=== PATIENT | male | born 1950 | race Two or more races ===

== ENCOUNTER 2023-06-08 20:45 | Inpatient (IN) | payer OTHER ==
[~2023-06-08] VITALS: Ht 167.6 cm; Wt 70.9 kg
[2023-06-08] MEDS ORDERED: SODIUM CHLORIDE 0.9% 1,000 ML IV ONE ×2 (21:00→22:30)
[2023-06-08] MEDS ORDERED: InsuLIN REG 1unit/0.01ml Soln (100units/ml) IV ONE ×2 (21:15→22:30)
[2023-06-08 21:30] LABS: Base Excess -4.2 mmol/L (-2.0-2.0)
[2023-06-08 21:48] LABS: Basophils # (auto) 0 10 ^3/uL (0-0.2); Basophils % (auto) 0.1 % (0.0-2.0); Eosinophils # (auto) 0 10 ^3/uL (0-0.8); Eosinophils % (auto) 0.2 % (0.0-7.0); Lymphocytes # (auto) 0.4 10 ^3/uL (0.4-5.4); Mean Corpuscular Hemoglobin 28.1 pg (28.0-32.0); Mean Corpuscular Hgb Conc. 28.2 g/dL (32.0-36.0); Monocytes # (auto) 0.7 10 ^3/uL (0-1.3); Monocytes % (auto) 6.4 % (0.0-12.0)
[2023-06-08 21:50] LABS: Hematocrit 32.7 % (41.0-53.0); Hemoglobin 9.2 g/dL (13.5-17.5); Mean Corpuscular Volume 99.5 fL (80.0-100.0); Neutrophils # (auto) 9.2 10 ^3/uL (1.6-8.6); Neutrophils % (auto) 89.3 % (37.0-80.0); Nucleated Red Blood Cells % 0.1 %; Red Blood Cells 3.29 10^6/uL (4.5-5.90); Red Cell Distribution Width 18.1 % (11.8-14.3); White Blood Cell 10.3 10^3/uL (4.4-10.8)
[2023-06-08 22:05] LABS: Alanine Aminotransferase 19 U/L (7-40); Albumin 3.8 g/dL (3.2-4.8); Alkaline Phosphatase 341 U/L (46-116); Anion Gap 11 (5-15); Aspartate Aminotransferase 32 U/L (13-40); BUN/Creatinine Ratio 18.7 (10.0-20.0); Bilirubin, Total 1.3 mg/dL (0.2-1.0); Blood Urea Nitrogen 50 mg/dL (9-23); Calcium 9.4 mg/dL (8.7-10.4); Carbon Dioxide 21 mmol/L (20-30); Chloride 83 mmol/L (98-107); Magnesium 2.7 mg/dL (1.6-2.6); Total Protein 7.8 g/dL (5.7-8.2)
[2023-06-08 22:21] LABS: Lactic Acid w/Reflex 4.8 mmol/L (0.4-2.0); Potassium 8.4 mmol/L (3.5-5.1); Sodium 115 mmol/L (136-145)
[2023-06-08 22:22] LABS: Glucose 1247 mg/dL (74-106)
[2023-06-08] MEDS ORDERED: SODIUM BICARBONATE 8.4% INJ 50ML SYRINGE IV ONE (22:30)
[2023-06-08] MEDS ORDERED: FUROSEMIDE 40 MG/4 ML VIAL IV ONE (22:30)
[2023-06-08] MEDS ORDERED: SODIUM ZIRCONIUM CYCL 10 GM PAK PO ONE (22:30)
[2023-06-08] MEDS ORDERED: PIPERACILLIN-TAZOB 3.375GM 100 ML IV ONE (22:30)
[2023-06-08] MEDS ORDERED: CALCIUM GLUC 1,000mg/50ml-NS 50 ML IV ONE (22:30)
[2023-06-08] MEDS ORDERED: ALBUTEROL SULF 2.5 MG/0.5ML(0.5%) NEB SOLN NEB ONE (22:30)
[2023-06-08] MEDS ORDERED: INSULIN LANTUS (GLARGINE) 1 /0.01ml (100units/ml) SC ONE (23:00)
[2023-06-08] MEDS ORDERED: DEXTROSE (50%) 50ML SYRG IV PRN (23:00)
[2023-06-08 23:37] LABS: Alanine Aminotransferase 15 U/L (7-40); Alkaline Phosphatase 311 U/L (46-116); Anion Gap 10 (5-15); Aspartate Aminotransferase 33 U/L (13-40); BUN/Creatinine Ratio 23.5 (10.0-20.0); Blood Urea Nitrogen 59 mg/dL (9-23); Calcium 9.5 mg/dL (8.5-10.1); Carbon Dioxide 22 mmol/L (20-30); Chloride 90 mmol/L (98-107)
[2023-06-08 23:38] LABS: Albumin 3.6 g/dL (3.2-4.8); Total Protein 7.3 g/dL (5.7-8.2)
[2023-06-08] MEDS: INSULIN DRIP 100 UNIT/100ML 100 ML IV SCH (23:43)
[2023-06-08 23:46] LABS: Sodium 122 mmol/L (136-145)
[2023-06-08 23:47] LABS: Glucose 1022 mg/dL (74-106)
[2023-06-09] MEDS: SODIUM CHLORIDE 0.9% 1,000 ML IV SCH ×4 (00:38→12:25)
[2023-06-09] MEDS: ACCU-CHEK COMFORT CURVE STRIP VI SCH ×16 (00:38→23:11)
[2023-06-09 00:45] LABS: Urine Bacteria NONE SEEN /hpf (None Seen); Urine Blood Negative /uL (Negative); Urine Clarity Clear (Clear); Urine Color Colorless (Yellow); Urine Protein, UAD Negative (Negative); Urine Specific Gravity 1.025 (1.001-1.035); Urine Urobilinogen Normal (Negative); Urine WBC 1 /hpf (0 - 3)
[2023-06-09 01:10] VITALS: PULSE 92; RESP 20; O2SAT 99
[2023-06-09 01:17] LABS: COVID19 ANTIGEN SOFIA FIA NEGATIVE (NEGATIVE)
[2023-06-09] MEDS ORDERED: SODIUM CHLORIDE 0.9% 1,000 ML IV SCH (03:00)
[2023-06-09 06:32] LABS: Chloride 99 mmol/L (98-107); Potassium 4.3 mmol/L (3.5-5.1)
[2023-06-09 06:33] LABS: Anion Gap 7 (5-15); Calcium 8.7 mg/dL (8.7-10.4); Carbon Dioxide 28 mmol/L (20-30)
[2023-06-09 06:39] LABS: Blood Urea Nitrogen 58 mg/dL (9-23)
[2023-06-09 06:40] LABS: Sodium 134 mmol/L (136-145)
[2023-06-09 06:41] LABS: Glucose 563 mg/dL (74-106)
[2023-06-09] MEDS: PIPERACILLIN-TAZOB 3.375GM 100 ML IV SCH ×3 (06:45→23:34)
[2023-06-09] MEDS ORDERED: InsuLIN REG 1unit/0.01ml Soln (100units/ml) SC SCH (07:00)
[2023-06-09 07:56] LABS: BUN/Creatinine Ratio 26.1 (10.0-20.0)
[2023-06-09 08:00] VITALS: PULSE 62; RESP 15; O2SAT 97
[2023-06-09] MEDS ORDERED: INSULIN LANTUS (GLARGINE) 1 /0.01ml (100units/ml) SC SCH (10:00)
[2023-06-09 11:52] LABS: Anion Gap 7 (5-15); Calcium 9.1 mg/dL (8.5-10.1); Carbon Dioxide 31 mmol/L (20-30); Chloride 102 mmol/L (98-107); Potassium 3.7 mmol/L (3.5-5.1); Sodium 140 mmol/L (136-145)
[2023-06-09 11:58] LABS: BUN/Creatinine Ratio 19.6 (10.0-20.0)
[2023-06-09 12:01] LABS: Blood Urea Nitrogen 42 mg/dL (9-23); Glucose 223 mg/dL (74-106)
[2023-06-09] MEDS: INSULIN DRIP 100 UNIT/100ML 100 ML IV SCH (14:06)
[2023-06-09 17:43] LABS: Chloride 103 mmol/L (98-107); Potassium 3.8 mmol/L (3.5-5.1); Sodium 141 mmol/L (136-145)
[2023-06-09 17:44] LABS: Anion Gap 7 (5-15); Carbon Dioxide 31 mmol/L (20-30)
[2023-06-09 17:49] LABS: BUN/Creatinine Ratio 20.7 (10.0-20.0); Blood Urea Nitrogen 43 mg/dL (9-23); Glucose 146 mg/dL (74-106)
[2023-06-09] MEDS ORDERED: D5W/SOD CHLO 0.9% 1,000 ML IV SCH (18:00)
[2023-06-09] MEDS ORDERED: INSULIN DRIP 100 UNIT/100ML 100 ML IV SCH (18:15)
[2023-06-09 19:55] VITALS: PULSE 70; RESP 19; O2SAT 96
[2023-06-09] MEDS ORDERED: INSULIN LANTUS (GLARGINE) 1 /0.01ml (100units/ml) SC ONE (21:00)
[2023-06-10] MEDS: ACCU-CHEK COMFORT CURVE STRIP VI SCH ×7 (00:18→16:28)
[2023-06-10] MEDS ORDERED: INSULIN DRIP 100 UNIT/100ML 100 ML IV SCH (02:00)
[2023-06-10] MEDS: D5W/SOD CHLO 0.9% 1,000 ML IV SCH ×3 (02:00→15:27)
[2023-06-10] MEDS: PIPERACILLIN-TAZOB 3.375GM 100 ML IV SCH ×3 (06:30→21:56)
[2023-06-10] MEDS ORDERED: InsuLIN REG 1unit/0.01ml Soln (100units/ml) SC SCH (07:00)
[2023-06-10] MEDS ORDERED: DEXTROSE (50%) 50ML SYRG IV PRN (10:45)
[2023-06-10 12:16] LABS: Basophils # (auto) 0 10 ^3/uL (0-0.2); Basophils % (auto) 0.2 % (0.0-2.0); Eosinophils # (auto) 0.1 10 ^3/uL (0-0.8); Lymphocytes # (auto) 0.5 10 ^3/uL (0.4-5.4); Monocytes # (auto) 0.4 10 ^3/uL (0-1.3); Nucleated Red Blood Cells % 0.1 %
[2023-06-10 12:18] LABS: Eosinophils % (auto) 1.7 % (0.0-7.0); Hematocrit 31.5 % (41.0-53.0); Hemoglobin 9.8 g/dL (13.5-17.5); Lymphocytes % (auto) 7.3 % (10.0-50.0); Mean Corpuscular Hemoglobin 28.3 pg (28.0-32.0); Mean Corpuscular Hgb Conc. 31.1 g/dL (32.0-36.0); Mean Corpuscular Volume 90.8 fL (80.0-100.0); Monocytes % (auto) 5.9 % (0.0-12.0); Neutrophils # (auto) 6.1 10 ^3/uL (1.6-8.6); Neutrophils % (auto) 84.9 % (37.0-80.0); Red Blood Cells 3.47 10^6/uL (4.5-5.90); Red Cell Distribution Width 18.3 % (11.8-14.3); White Blood Cell 7.2 10^3/uL (4.4-10.8)
[2023-06-10] MEDS ORDERED: OMEP20TA PO (12:20)
[2023-06-10] MEDS ORDERED: HYDR25TA5 GT (12:20)
[2023-06-10] MEDS ORDERED: LOSA25TA15 PO (12:20)
[2023-06-10] MEDS ORDERED: ASCO500T11 PO (12:20)
[2023-06-10] MEDS ORDERED: AMLO1TAB23 PO (12:20)
[2023-06-10] MEDS ORDERED: TENO1TAB PO (12:20)
[2023-06-10] MEDS ORDERED: INSU1INJ19 SC (12:20)
[2023-06-10] MEDS ORDERED: FERR325T20 PO (12:20)
[2023-06-10] MEDS ORDERED: LEVO25TA6 PO (12:20)
[2023-06-10] MEDS ORDERED: INSU100I28 IJ (12:20)
[2023-06-10] MEDS ORDERED: ATOR40TA52 PO (12:20)
[2023-06-10] MEDS ORDERED: SEMA2INJ3 SC (12:20)
[2023-06-10 12:33] LABS: Alanine Aminotransferase 23 U/L (7-40); Albumin 3.5 g/dL (3.2-4.8); Alkaline Phosphatase 303 U/L (46-116); Anion Gap 7 (5-15); Aspartate Aminotransferase 94 U/L (13-40); BUN/Creatinine Ratio 15.9 (10.0-20.0); Bilirubin, Total 0.5 mg/dL (0.2-1.0); Calcium 8.4 mg/dL (8.7-10.4); Carbon Dioxide 25 mmol/L (20-30); Chloride 108 mmol/L (98-107); Glucose 219 mg/dL (74-106); Magnesium 1.9 mg/dL (1.6-2.6); Sodium 140 mmol/L (136-145)
[2023-06-10 12:34] LABS: Total Protein 6.9 g/dL (5.7-8.2)
[2023-06-10] MEDS: InsuLIN REG 1unit/0.01ml Soln (100units/ml) SC SCH ×3 (12:46→20:00)
[2023-06-10 12:49] LABS: Blood Urea Nitrogen 28 mg/dL (9-23)
[2023-06-10] MEDS ORDERED: amLODIPine BESYLATE 5 MG TAB PO ONE (13:00)
[2023-06-10] MEDS: PANTOPRAZOLE 40 MG TAB PO SCH (13:00)
[2023-06-10] MEDS: hydroCHLOROthiazide 25 MG TAB PO SCH (13:00)
[2023-06-10] MEDS: SODIUM CHLORIDE 0.9% 1,000 ML IV SCH (16:28)
[2023-06-10 18:00] VITALS: PULSE 66; RESP 18; O2SAT 98
[2023-06-10] MEDS ORDERED: INSULIN LANTUS (GLARGINE) 1 /0.01ml (100units/ml) SC SCH (19:00)
[2023-06-10 20:00] VITALS: BP 131/54; PULSE 65; PULSE 72; RESP 18; TEMP 78.7; O2SAT 95
[2023-06-10] MEDS: ATORVASTATIN 20 MG TAB PO SCH (21:56)
[2023-06-10 23:46] VITALS: BP 131/54; PULSE 72; RESP 18; TEMP 98.2; O2SAT 95
[2023-06-11] VITALS (7 sets, daily range): BP systolic 130–142; BP diastolic 53–60; PULSE 62–80; RESP 16–20; TEMP 97.8–98.5; O2SAT 93–98
[2023-06-11] MEDS: InsuLIN REG 1unit/0.01ml Soln (100units/ml) SC SCH ×7 (00:21→21:46)
[2023-06-11] MEDS: ACCU-CHEK COMFORT CURVE STRIP VI SCH ×7 (00:50→21:45)
[2023-06-11] MEDS: PIPERACILLIN-TAZOB 3.375GM 100 ML IV SCH ×3 (00:56→22:28)
[2023-06-11] MEDS: SODIUM CHLORIDE 0.9% 1,000 ML IV SCH ×3 (02:00→22:00)
[2023-06-11] MEDS: LEVOTHYROXINE SODIUM 25 MCG TAB PO SCH (05:56)
[2023-06-11 06:08] LABS: Calcium 8.4 mg/dL (8.5-10.1); Chloride 107 mmol/L (98-107); Potassium 3.8 mmol/L (3.5-5.1); Sodium 137 mmol/L (136-145)
[2023-06-11 06:09] LABS: Anion Gap 7 (5-15); Carbon Dioxide 23 mmol/L (20-30)
[2023-06-11 06:10] LABS: Basophils # (auto) 0 10 ^3/uL (0-0.2); Basophils % (auto) 0.2 % (0.0-2.0); Eosinophils # (auto) 0.2 10 ^3/uL (0-0.8); Eosinophils % (auto) 2.2 % (0.0-7.0); Hematocrit 27.4 % (41.0-53.0); Hemoglobin 8.7 g/dL (13.5-17.5); Lymphocytes # (auto) 0.8 10 ^3/uL (0.4-5.4); Lymphocytes % (auto) 11.2 % (10.0-50.0); Mean Corpuscular Hemoglobin 28.2 pg (28.0-32.0); Mean Corpuscular Hgb Conc. 31.6 g/dL (32.0-36.0); Monocytes # (auto) 0.4 10 ^3/uL (0-1.3); Monocytes % (auto) 6.1 % (0.0-12.0); Neutrophils # (auto) 5.8 10 ^3/uL (1.6-8.6); Neutrophils % (auto) 80.3 % (37.0-80.0); Red Blood Cells 3.08 10^6/uL (4.5-5.90); Red Cell Distribution Width 18.8 % (11.8-14.3); White Blood Cell 7.2 10^3/uL (4.4-10.8)
[2023-06-11 06:14] LABS: BUN/Creatinine Ratio 12.8 (10.0-20.0); Blood Urea Nitrogen 20 mg/dL (9-23); Glucose 139 mg/dL (74-106)
[2023-06-11] MEDS ORDERED: DEXTROSE (50%) 50ML SYRG IV PRN (09:15)
[2023-06-11] MEDS: TENOFOVIR ALAFENAMIDE 25 MG PO SCH (10:00)
[2023-06-11] MEDS: ASCORBIC ACID 500 MG TAB PO SCH (10:06)
[2023-06-11] MEDS: hydroCHLOROthiazide 25 MG TAB PO SCH (10:06)
[2023-06-11] MEDS: FERROUS SULFATE 325mg EC TAB PO SCH (10:06)
[2023-06-11] MEDS: PANTOPRAZOLE 40 MG TAB PO SCH (10:06)
[2023-06-11 11:09] LABS: Hepatitis C Antibody Negative (Negative)
[2023-06-11 11:39] LABS: Hepatitis B Surface Antibody Negative (Negative)
[2023-06-11] MEDS ORDERED: ENOXAPARIN SOD 40 MG/0.4 ML SYRINGE SC ONE (15:00)
[2023-06-11] MEDS: ATORVASTATIN 20 MG TAB PO SCH (22:26)
[2023-06-12] MEDS: ACCU-CHEK COMFORT CURVE STRIP VI SCH ×4 (00:19→11:50)
[2023-06-12] MEDS: InsuLIN REG 1unit/0.01ml Soln (100units/ml) SC SCH ×4 (00:21→11:51)
[2023-06-12 04:33] LABS: Rapid Influenza A Negative (Negative); Rapid Influenza B Negative (Negative)
[2023-06-12 04:57] VITALS: BP 133/64; PULSE 65; RESP 15; TEMP 97.4; O2SAT 94
[2023-06-12] MEDS: PIPERACILLIN-TAZOB 3.375GM 100 ML IV SCH ×2 (05:33→14:00)
[2023-06-12] MEDS: LEVOTHYROXINE SODIUM 25 MCG TAB PO SCH (05:37)
[2023-06-12 06:00] LABS: Anion Gap 9 (5-15); Calcium 8.2 mg/dL (8.7-10.4); Carbon Dioxide 21 mmol/L (20-30); Chloride 104 mmol/L (98-107); Potassium 3.9 mmol/L (3.5-5.1); Sodium 134 mmol/L (136-145)
[2023-06-12 06:06] LABS: BUN/Creatinine Ratio 12.5 (10.0-20.0); Blood Urea Nitrogen 18 mg/dL (9-23); Glucose 125 mg/dL (74-106); Magnesium 1.8 mg/dL (1.6-2.6)
[2023-06-12 06:08] LABS: Phosphorus 2.5 mg/dL (2.4-5.1)
[2023-06-12 06:17] LABS: Basophils # (auto) 0 10 ^3/uL (0-0.2); Basophils % (auto) 0.4 % (0.0-2.0); Eosinophils # (auto) 0.1 10 ^3/uL (0-0.8); Eosinophils % (auto) 1.9 % (0.0-7.0); Hematocrit 28.2 % (41.0-53.0); Lymphocytes # (auto) 1.1 10 ^3/uL (0.4-5.4); Lymphocytes % (auto) 16.9 % (10.0-50.0); Mean Corpuscular Hemoglobin 28.6 pg (28.0-32.0); Mean Corpuscular Hgb Conc. 31.8 g/dL (32.0-36.0); Mean Corpuscular Volume 89.9 fL (80.0-100.0); Monocytes # (auto) 0.5 10 ^3/uL (0-1.3); Monocytes % (auto) 8.3 % (0.0-12.0); Neutrophils # (auto) 4.6 10 ^3/uL (1.6-8.6); Neutrophils % (auto) 72.5 % (37.0-80.0); Nucleated Red Blood Cells % 0.1 %; Red Blood Cells 3.13 10^6/uL (4.5-5.90); Red Cell Distribution Width 19.2 % (11.8-14.3); White Blood Cell 6.4 10^3/uL (4.4-10.8)
[2023-06-12 08:00] VITALS: PULSE 59; PULSE 88; RESP 18; O2SAT 96
[2023-06-12 09:00] VITALS: BP 126/56; PULSE 61; RESP 18; TEMP 98; O2SAT 96
[2023-06-12] MEDS: PANTOPRAZOLE 40 MG TAB PO SCH (09:42)
[2023-06-12] MEDS: TENOFOVIR ALAFENAMIDE 25 MG PO SCH (09:42)
[2023-06-12] MEDS: ASCORBIC ACID 500 MG TAB PO SCH (09:42)
[2023-06-12] MEDS: hydroCHLOROthiazide 25 MG TAB PO SCH (09:42)
[2023-06-12] MEDS: FERROUS SULFATE 325mg EC TAB PO SCH (09:42)
[2023-06-12] MEDS ORDERED: ENOXAPARIN SOD 40 MG/0.4 ML SYRINGE SC SCH (10:00)
[2023-06-12] MEDS ORDERED: AUG875T PO (11:17)
[2023-06-12 13:00] VITALS: BP 143/60; PULSE 63; RESP 17; TEMP 98.3; O2SAT 94
[2023-06-12 13:32] VITALS: BP 126/56
[2023-06-12] MEDS: SODIUM CHLORIDE 0.9% 1,000 ML IV SCH (14:00)
== END 2023-06-12 16:20 | disposition home or self-care (01) | DRG 177 ==
LOC: ER 20:45 → EDBD 20:45 → TELE 06-09 01:13 → TELE-WESTW 06-10 17:12
PROVIDERS: ADMIT Internal Medicine Geriatric Medicine; ATTEND Internal Medicine Geriatric Medicine
DX: J15.69 Pneumonia due to other Gram-negative bacteria (principal); E10.11 Type 1 diabetes mellitus with ketoacidosis with coma; N17.0 Acute kidney failure with tubular necrosis; E87.1 Hypo-osmolality and hyponatremia; J15.9 Unspecified bacterial pneumonia; E86.0 Dehydration; E87.5 Hyperkalemia; R16.0 Hepatomegaly, not elsewhere classified; Z20.822 Contact with and (suspected) exposure to COVID-19; K80.20 Calculus of gallbladder without cholecystitis without obstruction; E10.22 Type 1 diabetes mellitus with diabetic chronic kidney disease; N18.9 Chronic kidney disease, unspecified; I12.9 Hypertensive chronic kidney disease with stage 1 through stage 4 chronic kidney disease, or unspecified chronic kidney disease; Z86.73 Personal history of transient ischemic attack (TIA), and cerebral infarction without residual deficits; Z82.3 Family history of stroke
CPT/HCPCS: 36415; 36600; 71045; 74176; 74181; 76705; 80048; 80053; 81001; 82010; 82105; 82140; 82378; 82805; 82962; 83605; 83735; 84100; 84132; 84484; 85025; 86301; 86706; 86803; 87081; 87426; 87804; 93005; 97110; 97116; 97163; 97530; G0378; J1815; J2543

== ENCOUNTER 2024-02-25 19:18 | Inpatient (IN) | payer OTHER ==
[~2024-02-25] VITALS: Ht 167.6 cm; Wt 76.5 kg
[~2024-02-25 19:18] MED LIST: AMLO1TAB23 PO; ASCO500T11 PO; ATOR40TA52 PO; AUG875T PO; FERR325T20 PO; HYDR25TA5 GT; INSU100I28 IJ; INSU1INJ19 SC; LEVO25TA6 PO; LOSA-533 PO; OMEP20TA PO; SEMA2INJ3 SC; TENO1TAB PO
[2024-02-25 22:02] LABS: Basophils # (auto) 0 10 ^3/uL (0-0.2); Basophils % (auto) 0.4 % (0.0-2.0); Eosinophils # (auto) 0.2 10 ^3/uL (0-0.8); Lymphocytes # (auto) 1.5 10 ^3/uL (0.4-5.4); Monocytes # (auto) 0.6 10 ^3/uL (0-1.3); Platelet Count (auto) 180 10^3/uL (140-450); White Blood Cell 7.6 10^3/uL (4.4-10.8)
[2024-02-25 22:04] LABS: Hematocrit 15.2 % (41.0-53.0); Mean Corpuscular Hemoglobin 24.1 pg (28.0-32.0); Mean Corpuscular Hgb Conc. 29.8 g/dL (32.0-36.0); Mean Corpuscular Volume 80.9 fL (80.0-100.0); Monocytes % (auto) 7.6 % (0.0-12.0); Neutrophils # (auto) 5.2 10 ^3/uL (1.6-8.6); Red Blood Cells 1.88 10^6/uL (4.5-5.90)
[2024-02-25] MEDS: FUROSEMIDE 40 MG/4 ML VIAL IV ONE (22:05)
[2024-02-25 22:19] LABS: Alanine Aminotransferase 19 U/L (7-40); Albumin 4.7 g/dL (3.2-4.8); Alkaline Phosphatase 145 U/L (46-116); Anion Gap 11 (5-15); Aspartate Aminotransferase 149 U/L (13-40); BUN/Creatinine Ratio 15.6 (10.0-20.0); Blood Urea Nitrogen 44 mg/dL (9-23); Calcium 9.1 mg/dL (8.7-10.4); Carbon Dioxide 19 mmol/L (20-30); Chloride 111 mmol/L (98-107); Glucose 133 mg/dL (74-106); Potassium 4.2 mmol/L (3.5-5.1); Sodium 141 mmol/L (136-145)
[2024-02-25 22:20] LABS: Bilirubin, Total 0.6 mg/dL (0.2-1.0); Total Protein 7.9 g/dL (5.7-8.2)
[2024-02-25 22:26] LABS: Hemoglobin 4.5 g/dL (13.5-17.5)
[2024-02-25 22:33] LABS: Hypochromia Slight; Ovalocytes FEW; Platelet Estimate Adequate; Stomatocytes Few
[2024-02-25 23:00] VITALS: PULSE 64; RESP 18; O2SAT 96
[2024-02-26] VITALS (17 sets, daily range): BP systolic 125–151; BP diastolic 41–69; PULSE 62–85; RESP 11–18; TEMP 98–98.7; O2SAT 97–100
[2024-02-26] MEDS ORDERED: DEXTROSE (50%) 50ML SYRG IV PRN ×2 (01:00→03:00)
[2024-02-26] MEDS ORDERED: ONDANSETRON HCL 4 MG/2 ML VIAL IV PRN (01:00)
[2024-02-26 03:15] LABS: Amphetamine Screen, Urine Neg (NEGATIVE); Barbiturate Scree,Urine Neg (NEGATIVE); Benzodiazephine Screen, Urine Neg (NEGATIVE); Cannabinoid Screen, Urine Neg (NEGATIVE); Cocaine Screen, Urine Neg (NEGATIVE); Opiate Scree,Urine Neg (NEGATIVE); Phencyclidine Screen, Urine Neg (NEGATIVE)
[2024-02-26] MEDS: ACCU-CHEK COMFORT CURVE STRIP VI SCH ×2 (06:00→06:43)
[2024-02-26] MEDS: InsuLIN REG 1unit/0.01ml Soln (100units/ml) SC SCH ×2 (06:00→06:43)
[2024-02-26] MEDS: LEVOTHYROXINE SODIUM 25 MCG TAB PO SCH (06:25)
[2024-02-26] MEDS: ALBUTEROL SULF 2.5 MG/0.5ML(0.5%) NEB SOLN NEB PRN (06:57)
[2024-02-26] MEDS: IPRATROPIUM BROM 0.5 MG/2.5ML INH SOL NEB SCH (06:57)
[2024-02-26 09:14] LABS: Basophils # (auto) 0 10 ^3/uL (0-0.2); Basophils % (auto) 0.3 % (0.0-2.0); Eosinophils # (auto) 0.2 10 ^3/uL (0-0.8); Eosinophils % (auto) 3.4 % (0.0-7.0); Hematocrit 21.9 % (41.0-53.0); Hemoglobin 7.2 g/dL (13.5-17.5); Lymphocytes # (auto) 1.1 10 ^3/uL (0.4-5.4); Lymphocytes % (auto) 21.2 % (10.0-50.0); Mean Corpuscular Hemoglobin 27.2 pg (28.0-32.0); Mean Corpuscular Hgb Conc. 32.8 g/dL (32.0-36.0); Mean Corpuscular Volume 82.8 fL (80.0-100.0); Monocytes # (auto) 0.5 10 ^3/uL (0-1.3); Monocytes % (auto) 9.1 % (0.0-12.0); Neutrophils # (auto) 3.4 10 ^3/uL (1.6-8.6); Platelet Count (auto) 137 10^3/uL (140-450); Red Blood Cells 2.64 10^6/uL (4.5-5.90); Red Cell Distribution Width 18.1 % (11.8-14.3); White Blood Cell 5.1 10^3/uL (4.4-10.8)
[2024-02-26 09:27] LABS: INR 1.18 (0.9-1.15); Prothrombin Time 12.4 sec (9.3-11.8)
[2024-02-26 09:37] LABS: Thyroid Stimulating Hormone 2.35 uIU/mL (0.55-4.78)
[2024-02-26 09:45] LABS: Erythrocyte Sedimentation Rate 90 mm/hr (0-20)
[2024-02-26] MEDS ORDERED: FUROSEMIDE 20 MG TAB PO SCH (10:00)
[2024-02-26] MEDS: amLODIPine BESYLATE 5 MG TAB PO SCH (10:05)
[2024-02-26] MEDS: SODIUM CHLORIDE 0.9% 1,000 ML IV SCH (14:48)
[2024-02-26] MEDS: ATORVASTATIN 20 MG TAB PO SCH (23:12)
[2024-02-27] VITALS (21 sets, daily range): BP systolic 126–150; BP diastolic 36–61; PULSE 64–80; RESP 16–20; TEMP 97.6–98.3; O2SAT 96–100
[2024-02-27] MEDS: PANTOPRAZOLE 40 MG/10 ML VIAL INJ IV ONE (00:28)
[2024-02-27 07:49] LABS: Basophils # (auto) 0 10 ^3/uL (0-0.2); Basophils % (auto) 0.4 % (0.0-2.0); Eosinophils # (auto) 0.2 10 ^3/uL (0-0.8); Eosinophils % (auto) 3.8 % (0.0-7.0); Hematocrit 22.6 % (41.0-53.0); Hemoglobin 7.1 g/dL (13.5-17.5); Lymphocytes # (auto) 1.1 10 ^3/uL (0.4-5.4); Lymphocytes % (auto) 22.7 % (10.0-50.0); Mean Corpuscular Hgb Conc. 31.4 g/dL (32.0-36.0); Mean Corpuscular Volume 82.7 fL (80.0-100.0); Monocytes # (auto) 0.4 10 ^3/uL (0-1.3); Monocytes % (auto) 8.7 % (0.0-12.0); Neutrophils % (auto) 64.4 % (37.0-80.0); Nucleated Red Blood Cells % 0.1 %; Platelet Count (auto) 139 10^3/uL (140-450); Red Blood Cells 2.73 10^6/uL (4.5-5.90); Red Cell Distribution Width 17.9 % (11.8-14.3); White Blood Cell 4.7 10^3/uL (4.4-10.8)
[2024-02-27 08:23] LABS: Alanine Aminotransferase 18 U/L (7-40); Albumin 4.5 g/dL (3.2-4.8); Alkaline Phosphatase 124 U/L (46-116); Anion Gap 11 (5-15); Aspartate Aminotransferase 92 U/L (13-40); BUN/Creatinine Ratio 16.7 (10.0-20.0); Blood Urea Nitrogen 43 mg/dL (9-23); Calcium 9.3 mg/dL (8.7-10.4); Carbon Dioxide 22 mmol/L (20-30); Chloride 109 mmol/L (98-107); Glucose 155 mg/dL (74-106); Potassium 3.5 mmol/L (3.5-5.1); Sodium 142 mmol/L (136-145)
[2024-02-27 08:24] LABS: Bilirubin, Total 1.1 mg/dL (0.2-1.0); Total Protein 7.7 g/dL (5.7-8.2)
[2024-02-27] MEDS: PANTOPRAZOLE 40 MG/10 ML VIAL INJ IV SCH (10:10)
[2024-02-27] MEDS ORDERED: KETAMINE 50mg/ML 1ml syringe ONE (13:27)
[2024-02-27] MEDS ORDERED: MIDAZOLAM HCL 2MG/2ML 2ml VIAL (1mg/ml) ONE (13:28)
[2024-02-27] MEDS ORDERED: fentaNYL CITRATE 100 MCG/2 ML VL ONE (13:28)
[2024-02-27] MEDS: ONDANSETRON HCL 4 MG/2 ML VIAL IV ONE (14:00)
[2024-02-27] MEDS ORDERED: INSU1INJ19 SC (17:30)
[2024-02-27] MEDS ORDERED: HYDR25TA4 PO (17:30)
[2024-02-27] MEDS ORDERED: LEVO25TA6 PO (17:30)
[2024-02-27] MEDS ORDERED: TENO1TAB PO (17:30)
[2024-02-27] MEDS ORDERED: INSU100I26 SC (17:30)
[2024-02-27] MEDS ORDERED: FURO20TA3 PO (17:30)
[2024-02-27] MEDS ORDERED: OMEP1CAP70 PO (17:36)
[2024-02-27 19:27] LABS: Urine Bacteria None Seen /hpf (None Seen)
[2024-02-27 19:55] LABS: Urine Blood TRACE /uL (Negative); Urine Clarity Clear (Clear); Urine Color Colorless (Yellow); Urine Protein, UAD 1+ (Negative); Urine Specific Gravity 1.011 (1.001-1.035); Urine Urobilinogen Normal (Negative); Urine WBC 1 /hpf (0 - 3); Urine pH 5.5 (5.0-9.0)
[2024-02-28] VITALS (20 sets, daily range): BP systolic 131–155; BP diastolic 49–96; PULSE 62–74; RESP 16–20; TEMP 97.9–98.9; O2SAT 95–100
[2024-02-28 00:47] LABS: Basophils # (auto) 0 10 ^3/uL (0-0.2); Basophils % (auto) 0.5 % (0.0-2.0); Eosinophils # (auto) 0.2 10 ^3/uL (0-0.8); Hemoglobin 7.1 g/dL (13.5-17.5); Mean Corpuscular Volume 84.4 fL (80.0-100.0); Monocytes # (auto) 0.4 10 ^3/uL (0-1.3)
[2024-02-28 00:49] LABS: Eosinophils % (auto) 4.2 % (0.0-7.0); Hematocrit 23.2 % (41.0-53.0); Lymphocytes % (auto) 21.6 % (10.0-50.0); Mean Corpuscular Hemoglobin 25.9 pg (28.0-32.0); Mean Corpuscular Hgb Conc. 30.6 g/dL (32.0-36.0); Monocytes % (auto) 9.3 % (0.0-12.0); Neutrophils # (auto) 2.9 10 ^3/uL (1.6-8.6); Neutrophils % (auto) 64.4 % (37.0-80.0); Nucleated Red Blood Cells % 0.1 %; Platelet Count (auto) 133 10^3/uL (140-450); Red Blood Cells 2.76 10^6/uL (4.5-5.90); Red Cell Distribution Width 17.9 % (11.8-14.3); White Blood Cell 4.6 10^3/uL (4.4-10.8)
[2024-02-28 09:21] LABS: Hepatitis C Antibody Negative (Negative)
[2024-02-28 09:31] LABS: Hepatitis B Surface Antigen Positive (Negative)
[2024-02-28 09:36] LABS: Basophils # (auto) 0 10 ^3/uL (0-0.2); Eosinophils # (auto) 0.2 10 ^3/uL (0-0.8); Hematocrit 25.2 % (41.0-53.0); Hemoglobin 8.1 g/dL (13.5-17.5); Lymphocytes # (auto) 1.1 10 ^3/uL (0.4-5.4); Neutrophils # (auto) 3.2 10 ^3/uL (1.6-8.6)
[2024-02-28 09:38] LABS: Basophils % (auto) 0.4 % (0.0-2.0); Eosinophils % (auto) 4.3 % (0.0-7.0); Lymphocytes % (auto) 21.6 % (10.0-50.0); Mean Corpuscular Hemoglobin 27.1 pg (28.0-32.0); Mean Corpuscular Hgb Conc. 32.1 g/dL (32.0-36.0); Mean Corpuscular Volume 84.2 fL (80.0-100.0); Monocytes # (auto) 0.4 10 ^3/uL (0-1.3); Monocytes % (auto) 8.4 % (0.0-12.0); Neutrophils % (auto) 65.3 % (37.0-80.0); Nucleated Red Blood Cells % 0.3 %; Platelet Count (auto) 130 10^3/uL (140-450); Red Cell Distribution Width 18.9 % (11.8-14.3); White Blood Cell 4.9 10^3/uL (4.4-10.8)
[2024-02-28 09:44] LABS: Chloride 109 mmol/L (98-107); Potassium 4.1 mmol/L (3.5-5.1); Sodium 139 mmol/L (136-145)
[2024-02-28 09:45] LABS: Calcium 9.2 mg/dL (8.7-10.4)
[2024-02-28 09:50] LABS: Glucose 142 mg/dL (74-106)
[2024-02-28 10:06] LABS: Blood Urea Nitrogen 31 mg/dL (9-23)
[2024-02-28 10:15] LABS: Anion Gap 10 (5-15); Carbon Dioxide 20 mmol/L (20-31)
[2024-02-28 10:25] LABS: Ferritin 18.3 ng/mL (22-322)
[2024-02-28 10:41] LABS: Folate (Folic Acid) 29.75 ng/mL (>5.38)
[2024-02-28] MEDS: PANTOPRAZOLE 40 MG TAB PO ONE (10:41)
[2024-02-28] MEDS: FERROUS SULFATE 325mg EC TAB PO SCH (10:41)
[2024-02-28] MEDS ORDERED: PANT40T PO (11:13)
[2024-02-29] MEDS ORDERED: PANTOPRAZOLE 40 MG TAB PO SCH (06:00)
[2024-02-29] MEDS ORDERED: IRON SUCROSE COMPLEX 100 ML IV SCH (12:00)
== END 2024-02-28 17:50 | disposition home or self-care (01) | DRG 377 ==
LOC: EDBD 19:18 → ER 19:18 → OVERFLOW 02-26 01:05 → WEST WING 02-26 21:11 → TELE-WESTW 02-26 23:44 → WEST WING 02-27 12:10
PROVIDERS: ADMIT Internal Medicine; ATTEND Internal Medicine
PROC: 30233N1 Transfusion of Nonautologous Red Blood Cells into Peripheral Vein, Percutaneous Approach (ICD-10-PCS; principal; 2024-02-26)
PROC: 0DB98ZX Excision of Duodenum, Via Natural or Artificial Opening Endoscopic, Diagnostic (ICD-10-PCS; 2024-02-27)
PROC: 0DB98ZZ Excision of Duodenum, Via Natural or Artificial Opening Endoscopic (ICD-10-PCS; 2024-02-27)
PROC: 0DB78ZX Excision of Stomach, Pylorus, Via Natural or Artificial Opening Endoscopic, Diagnostic (ICD-10-PCS; 2024-02-27)
DX: K29.91 Gastroduodenitis, unspecified, with bleeding (principal); I50.33 Acute on chronic diastolic (congestive) heart failure; N17.0 Acute kidney failure with tubular necrosis; E87.20 Acidosis, unspecified; I13.0 Hypertensive heart and chronic kidney disease with heart failure and stage 1 through stage 4 chronic kidney disease, or unspecified chronic kidney disease; R18.8 Other ascites; K80.20 Calculus of gallbladder without cholecystitis without obstruction; E03.9 Hypothyroidism, unspecified; E78.00 Pure hypercholesterolemia, unspecified; N18.9 Chronic kidney disease, unspecified; E11.22 Type 2 diabetes mellitus with diabetic chronic kidney disease; D63.8 Anemia in other chronic diseases classified elsewhere; J44.9 Chronic obstructive pulmonary disease, unspecified; K75.9 Inflammatory liver disease, unspecified; K31.7 Polyp of stomach and duodenum; Z86.73 Personal history of transient ischemic attack (TIA), and cerebral infarction without residual deficits; Z87.11 Personal history of peptic ulcer disease; Z87.891 Personal history of nicotine dependence; Z79.4 Long term (current) use of insulin; Z79.899 Other long term (current) drug therapy
CPT/HCPCS: 36415; 71045; 71250; 74176; 76700; 80048; 80053; 80307; 81001; 82105; 82270; 82607; 82728; 82746; 82962; 83540; 83550; 83615; 83880; 83970; 84443; 84484; 84550; 85025; 85045; 85610; 85652; 86038; 86803; 86850; 86900; 86901; 86920; 87340; 93005; 93306; 94640; 99291; G0378; J1815; J2250; J2470

== ENCOUNTER 2024-05-16 08:44 | Inpatient (IN) | payer OTHER ==
[~2024-05-16] VITALS: Ht 162.6 cm; Wt 81.0 kg
[2024-05-16] VITALS (11 sets, daily range): BP systolic 133–159; BP diastolic 31–51; PULSE 53–64; RESP 14–18; TEMP 97.4–98.1; O2SAT 98–100
[~2024-05-16 08:44] MED LIST changes: -AMLO1TAB23 PO; -ASCO500T11 PO; -AUG875T PO; -FERR325T20 PO; -HYDR25TA5 GT; +INSU100I26 SC; -INSU100I28 IJ; +OMEP1CAP70 PO; -OMEP20TA PO; +PANT40T PO
[2024-05-16] MEDS: SODIUM CHLORIDE 0.9% 1,000 ML IV ONE (09:30)
--- NOTE | 2024-05-16 09:48 | ED.PDOC ---
GI ASSESSMENT HPI Comments 73 y.o pale appearing male presents to the ED via EMS for an evaluation of rectal bleed. Patient reports using the restroom earlier today and noticed a large amount of bright red blood in the toilet. Patient mentions having a previous episode, unsure what date but states it was minimal. Per EMS, patient complained of nausea and vomiting in route, was given 4mg of Zofran IV with improvement. Heart rate dropped from 60 to 30 en route with EMS s/p patient first vomited, arrives with a rate of 46. Patient denies any abdominal pain, fever, chills, chest pain, SOB, lightheadedness. No active bleeding per patient at this time. Patient does have a medical history of anemia, previous blood transfusions, CVA, HDL, liver disease, thyroid, CVA, CHF, HTN, DM, and hepatitis. Patient is Zimbabwean speaking only. Information gathered in this visit was through [employer] services. 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, Medications, Allergies Allergies: Coded Allergies: NO KNOWN ALLERGIES (Unverified , 06/08/23) Home Meds Active Scripts Pantoprazole Sodium Sesquihydr (Pantoprazole Sodium) 40 Mg Tab, 40 MG PO DAILY@0600 for 30 Days, #30 TAB 3 Refills Prov:BARTOLODORA Riojas DO 02/28/24 Reported Medications Omeprazole (Omeprazole Dr) 20 Mg Cap, 20 MG PO DAILY 02/27/24 Insulin Lispro (Admelog) 100 Unit/Ml Inj, 10 UNITS SC UD 02/27/24 Insulin Glargine (Basaglar Kwikpen) 100 Unit/Ml Inj, 30 UNITS SC BEFORE DINNER 02/27/24 Levothyroxine Sodium (Levothyroxine Sodium) 25 Mcg Tab, 25 MCG PO QAM ON EMPTY STOMACH 02/27/24 Tenofovir Alafenamide Fumarate (Vemlidy) 25 Mg Tab, 25 MG PO DAILY 02/27/24 Atorvastatin Calcium (ATORVASTATIN CALCIUM) 40 Mg Tab, 1 TAB PO DAILY, #30 TAB 5 Refills 06/10/23 Losartan Potassium (Losartan Potassium) 25 Mg Tab, 1 TAB PO DAILY, #90 TAB 1 Ref ill 06/10/23 Semaglutide (Ozempic) 2 Mg/3 Ml Inj, 2 MG SC, INJ 06/10/23 Information Source: Patient Mode of Arrival: EMS Timing: Hours Duration: Since onset Quality: None Vomitus: Hard Stool: Other (bloody ) Severity: Moderate Recent: None Recent Hx of: None Pain Location: None Modifying Factors: Nothing Associated sign and symptoms: Blood in Stool Past Medical History PAST MEDICAL HISTORY: CHF, CVA, DM, Gallstones, HTN, Liver, Thyroid Surgical History: Denies all surgeries Family History Family History: Unknown Social History Smoker: Non-Smoker Alcohol: Denies ETOH Use Drugs: Denies Drug Use Lives In: Home Constitutional: denies: chills, diaphoresis, fatigue, fever, malaise, sweats, weakness, others EENTM: denies: blurred vision, double vision, ear bleeding, ear discharge, ear drainage, ear pain, ear ringing, eye pain, eye redness, hearing loss, mouth pain, mouth swelling, nasal discharge, nose bleeding, nose congestion, nose pain, photophobia, tearing, throat pain, throat swelling, voice changes, others Respiratory: denies: cough, hemoptysis, orthopnea, SOB at rest, shortness of breath, SOB with excertion, stridor, wheezing, others Cardiovascular: denies: chest pain, dizzy spells, diaphoresis, Dyspnea on exe rtion, edema, irregular heart beat, left arm pain, lightheadedness, palpitations, PND, syncope, others Gastrointestinal: reports: nausea, rectal bleeding, vomiting; denies: abdomen distended, abdominal pain, blood streaked bowels, constipated, diarrhea, dysphagia, difficulty swallowing, hematemesis, melena, poor appetite, poor fluid intake, rectal pain, others Genitourinary: denies: burning, dysuria, flank pain, frequency, hematuria, incontinence, penile discharge, penile sore, pain, testicle pain, testicle swelling, urgency, others Neurological: denies: dizziness, fainting, headache, left sided numbness, left sided weakness, numbness, paresthesia, pre-existing deficit, right sided numbness, right sided weakness, seizure, speech problems, tingling, tremors, weakness, others Musculoskeletal: denies: back pain, gout, joint pain, joint swelling, muscle pain, muscle stiffness, neck pain, others Integumetry: denies: bruises, change in color, change in hair/nails, dryness, laceration, lesions, lumps, rash, wounds, others Allergic/Immunocompromised: denies: Difficulty Healing, Frequent Infections, Hives, Itching, others Hematologic/Lymphatic: denies: anemia, blood clots, easy bleeding, easy bruising, swollen glands, others Endocrine: denies: excessive hunger, excessive sweating, excessive thirst, excessive urination, flushing, intolerance to cold, intolerance to heat, unexplained weight gain, unexplained weight loss, others Psychiatric: denies: anxiety, bipolar disorder, depression, hopeless, panic disorder, schizophrenia, sleepless, suicidal, others All Other Systems: Reviewed and Negative Physical Exam General Appearance: No Apparent Distress HEENT: Pale Conjuntivae (L), Pale Conjuntivae (R), PERRL/EOMI Neck: Full Range of Motion, Normal Inspection Respiratory: Lungs Clear, No Accessory Muscle Use, No Respiratory Distress, Normal Breath Sounds Cardiovascular: No Edema, No JVD, Regular Rate/Rhythm Breast Exam: Deferred Gastrointestinal: Non Tender, Soft Genitalia: Deferred Pelvic: Deferred Rectal: Other (No acute hemorrhage. Dried blood in the perianal area and on diaper. No perianal lesions noted.) Extremities: Normal range of motion, Non-tender, No pedal edema Neurologic: Alert (Oriented x4), Normal Affect, Normal Mood, Other (Hearing deficit. Moves all extremities. No other gross focal deficit.) Cerebellar Function: NOT DONE Reflexes: NOT DONE Skin: Dry, Pallor, Warm, Other (Scattered ecchymoses on extremities) Lymphatic: NOT DONE Was a procedure done? Was a procedure done?: No GI differential Dx Differential Diagnosis: Diverticular disease, GI hemorrhage, Inflammatory BD, Ischemic Bowel, Hypovolemia, Anemia, Esophageal Varicies, Stress Ulcer Other Differential Diagnosis Coagulopathy, among others X-Ray, Labs, Meds, VS Vital Signs Date Time Temp Pulse Resp B/P (MAP) Pulse Ox O2 Delivery O2 Flow Rate FiO2 05/16/24 10:41 53 18 100 Room Air* 0 21 05/16/24 10:39 56 18 135/39 (71) 100 05/16/24 09:07 98.0 112 18 127/72 (90) 98 98.0 05/16/24 08:51 97.6 46 18 114/40 (64) 100 Lab Test 05/16/24 09:38 Range/Units White Blood Count 8.1 4.4-10.8 10^3/uL Red Blood Count 1.35 L 4.5-5.90 10^6/uL Hemoglobin 4.3 *L 13.5-17.5 g/dL Hematocrit 14.3 L 41.0-53.0 % Mean Corpuscular Volume 106.0 H 80.0-100.0 fL Mean Corpuscular Hemoglobin 31.6 28.0-32.0 pg Mean Corpuscular Hemoglobin Concent 29.8 L 32.0-36.0 g/dL Red Cell Distribution Width 24.6 H 11.8-14.3 % Platelet Count 118 L 140-450 10^3/uL Mean Platelet Volume 9.2 6.9-10.8 fL Neutrophils (%) (Auto) 82.7 H 37.0-80.0 % Lymphocytes (%) (Auto) 10.7 10.0-50.0 % Monocytes (%) (Auto) 4.6 0.0-12.0 % Eosinophils (%) (Auto) 1.7 0.0-7.0 % Basophils (%) (Auto) 0.3 0.0-2.0 % Neutrophils # (Auto) 6.7 1.6-8.6 10 ^3/uL Lymphocytes # (Auto) 0.9 0.4-5.4 10 ^3/uL Monocytes # (Auto) 0.4 0-1.3 10 ^3/uL Eosinophils # (Auto) 0.1 0-0.8 10 ^3/uL Basophils # (Auto) 0 0-0.2 10 ^3/uL Nucleated Red Blood Cells 0.0 % Platelet Estimate Pending Prothrombin Time 11.5 9.3-11.8 sec Prothrombin Time INR 1.09 0.9-1.15 Activated Partial Thromboplast Time 25.9 24.5-34.5 SEC Sodium Level 144 136-145 mmol/L Potassium Level 5.1 3.5-5.1 mmol/L Chloride Level 119 H 98-107 mmol/L Carbon Dioxide Level 14 L 20-31 mmol/L Anion Gap 11 5-15 Blood Urea Nitrogen 63 H 9-23 mg/dL Creatinine 3.12 H 0.700-1.30 mg/dL Glomerular Filtration Rate Calc 20 >90 mL/min BUN/Creatinine Ratio 20.2 H 10.0-20.0 Serum Glucose 250 H 74-106 mg/dL Calcium Level 8.9 8.7-10.4 mg/dL Total Bilirubin Pending Aspartate Amino Transferase (AST) 80 H 13-40 U/L Alanine Aminotransferase (ALT) 20 7-40 U/L Alkaline Phosphatase 103 46-116 U/L Troponin I High Sensitivity < 3 L </=54 ng/L B-Type Natriuretic Peptide 125.53 0-100 pg/mL Total Protein 6.3 5.7-8.2 g/dL Albumin 3.8 3.2-4.8 g/dL Current Medications Medications (Trade) Dose Ordered Sig/Harlan Route Start Time Stop Time Status Last Admin Sodium Chloride 1,000 ml @ 1,000 mls/hr Q1H ONCE IV 05/16/24 09:30 05/16/24 10:29 DC 05/16/24 09:30 Ondansetron HCl (Zofran) 4 mg ONCE ONCE IV 05/16/24 10:00 05/16/24 10:01 DC 05/16/24 10:00 Pantoprazole Sodium (Protonix) 40 mg ONCE ONCE IV 05/16/24 10:00 05/16/24 10:01 DC 05/16/24 10:00 PROCEDURE(s): ABPL - CT AB PEL WO CON-NO ORAL OR IV REASON: GI bleeding lower ORDER NUMBER(s): [id number], ACCESSION NUMBER(s): [id number] CT ABDOMEN AND PELVIS WITHOUT CONTRAST CLINICAL HISTORY: GI bleeding lower TECHNIQUE: Multiple contiguous axial images of the abdomen and pelvis without intravenous contrast. The images were reformatted degenerate coronal and sagittal reconstructions. All CT scans at this medical facility are performed using dose modulation techniques as appropriate to a performed exam including the following:Automated exposure control was utilized; adjustment of the MA and/or KV according to patient size; and use of iterative reconstruction technique. Radiation Dose Information: CT Dose: CTDI volume is 8.44 mGy. Dose-length product is 440.13 mGy*cm Comparison: CT CT AB PEL WO CON-NO ORAL OR IV on DOS: 02/26/24, CT CT AB PEL WO CON-NO ORAL OR IV on DOS: 06/08/23 FINDINGS: Evaluation of the abdomen and pelvis is limited without intravenous contrast. There is fairly stable appearing 10.5 cm mildly hypodense mass centered in the left hepatic lobe. There are small calcified gallstones in the gallbladder. The pancreas, kidneys, adrenal glands, and spleen appear within normal limits. There is no gross evidence of abdominal lymphadenopathy. There is no free fluid or free air. The stomach grossly appears unremarkable. The small and large bowel loops dem onstrate normal caliber and appear within normal limits.. The abdominal aorta and IVC appear within normal limits. The prostate gland is enlarged. An incompletely filled bladder demonstrates circumferential wall thickening likely related to chronic outlet obstruction.. There is no gross evidence of a pelvic mass. There is no free fluid collection. Lung bases are clear. There is no acute osseous abnormality. IMPRESSION: 1. There is no acute process in the abdomen and pelvis. 2. Fairly stable appearing 10.5 cm mass centered in the left hepatic lobe. 3. Cholelithiasis. 4. Prostatomegaly with likely chronic bladder outlet obstruction. HS:Y X-Ray, Labs, Meds, VS Comment 73-year-old male with a history of anemia, previous blood transfusions, CVA, HDL, liver disease, thyroid, CVA, CHF, HTN, DM, and hepatitis presenting with GI bleeding. Vitals remarkable for heart rate 46, BP 114/40 Exam remarkable for pallor and a large amount of dark red blood in the diaper. No acute hemorrhage or perianal lesions noted. Rhythm strip independently interpreted by me: Sinus bradycardia, rate 58, no ectopy. CT abdomen and pelvis: IMPRESSION: 1. There is no acute process in the abdomen and pelvis. 2. Fairly stable appearing 10.5 cm mass centered in the left hepatic lobe. 3. Cholelithiasis. 4. Prostatomegaly with likely chronic bladder outlet obstruction. CBC remarkable for hemoglobin 4.3, hematocrit 14.3, platelets 118, CMP remarkable for chloride 119, CO2 14, BUN 63, creatinine 3.12, BNP and troponin unremarkable Patient treated with the following in the ED: 1 L 0.9 normal saline IV bolus, Protonix 40 mg IV, Zofran 4 mg IV. Patient was typed and crossed for 2 units of packed red cells and transfusion was ordered. On re-evaluation, blood pressure and heart rate are stable, there is no new acute bleeding, and patient appears comfortable. Plan is to admit the patient for transfusion and GI evaluation. Time of 1ST Reevaluation: 10:29 Reevaluation 1ST: Unchanged Patient Education/Counseling: Diagnosis, Treatment, Prognosis, Other ([employer] services used for assessment ) Family Education/Counseling: No Family Present Departure 1 Departure Time of Disposition: 11:00 Impression: Primary Impression: Severe anemia Additional Impression: GI bleed Qualified Codes: K92.2 - Gastrointestinal hemorrhage, unspecified Disposition: ADMITTED INPATIENT Admit to: Tele Condition: Guarded Critical Care Note Critical Care Time?: Yes (35 min-critical care time only) Critical care comment: Critical care time including multiple bedside re-evaluations, review of lab and imaging studies, and discussion of the case with the admitting provider. Patient is high risk for hemodynamic decompensation. Stability Stability form required: No I personally scribed for ANTHONY JIM MD ([facility]) on 05/16/24 at 09:48. Electronically submitted by Poppy Kat ([facility]). I personally scribed for ANTHONY JIM MD ([facility]) on 05/16/24 at 10:37. Electronically submitted by Poppy Kat ([facility]). I personally scribed for ANTHONY JIM MD ([facility]) on 05/16/24 at 10:53. Electronically submitted by Poppy Kat ([facility]). ANTHONY JIM MD May 16, 2024 09:48
[2024-05-16] MEDS: ONDANSETRON HCL 4 MG/2 ML VIAL IV ONE (10:00)
[2024-05-16] MEDS: PANTOPRAZOLE 40 MG/10 ML VIAL INJ IV ONE (10:00)
[2024-05-16 10:18] LABS: Basophils # (auto) 0 10 ^3/uL (0-0.2); Eosinophils # (auto) 0.1 10 ^3/uL (0-0.8); Lymphocytes # (auto) 0.9 10 ^3/uL (0.4-5.4); Neutrophils # (auto) 6.7 10 ^3/uL (1.6-8.6)
[2024-05-16 10:21] LABS: Basophils % (auto) 0.3 % (0.0-2.0); Eosinophils % (auto) 1.7 % (0.0-7.0); Hematocrit 14.3 % (41.0-53.0); Lymphocytes % (auto) 10.7 % (10.0-50.0); Mean Corpuscular Hemoglobin 31.6 pg (28.0-32.0); Mean Corpuscular Hgb Conc. 29.8 g/dL (32.0-36.0); Monocytes # (auto) 0.4 10 ^3/uL (0-1.3); Monocytes % (auto) 4.6 % (0.0-12.0); Neutrophils % (auto) 82.7 % (37.0-80.0); Platelet Count (auto) 118 10^3/uL (140-450); Red Blood Cells 1.35 10^6/uL (4.5-5.90); White Blood Cell 8.1 10^3/uL (4.4-10.8)
[2024-05-16 10:24] LABS: Alanine Aminotransferase 20 U/L (7-40); Albumin 3.8 g/dL (3.2-4.8); Alkaline Phosphatase 103 U/L (46-116); Anion Gap 11 (5-15); BUN/Creatinine Ratio 20.2 (10.0-20.0); Calcium 8.9 mg/dL (8.7-10.4); Potassium 5.1 mmol/L (3.5-5.1); Sodium 144 mmol/L (136-145); Total Protein 6.3 g/dL (5.7-8.2)
[2024-05-16 10:36] LABS: Red Cell Distribution Width 24.6 % (11.8-14.3)
[2024-05-16 10:38] LABS: Hemoglobin 4.3 g/dL (13.5-17.5)
--- NOTE | 2024-05-16 10:38 | DVH ---
CT ABDOMEN AND PELVIS WITHOUT CONTRAST CLINICAL HISTORY: GI bleeding lower TECHNIQUE: Multiple contiguous axial images of the abdomen and pelvis without intravenous contrast. The images were reformatted degenerate coronal and sagittal reconstructions. All CT scans at this medical facility are performed using dose modulation techniques as appropriate t o a performed exam including the following:Automated exposure control was utilized; adjustment of the MA and/or KV according to patient size; and use of iterative reconstruction technique. Radiation Dose Information: CT Dose: CTDI volume is 8.44 mGy. Dose-length product is 440.13 mGy*cm Comparison: CT CT AB PEL WO CON-NO ORAL OR IV on DOS: 02/26/24, CT CT AB PEL WO CON-NO ORAL OR IV on D OS: 06/08/23 FINDINGS: Evaluation of the abdomen and pelvis is limited without intravenous contrast. There is fairly stable appearing 10.5 cm mildly hypodense mass centered in the left hepatic lobe. There are small calcified gallstones in the gallbladder. The pancreas, kidneys, adrenal glands, a nd spleen appear within normal limits. There is no gross evidence of abdominal lymphadenopathy. There is no free fluid or free air. The stomach grossly appears unremarkable. The small and large bowel loops demonstrate normal caliber and appear within normal limits.. The abdominal aorta and IVC appear within normal limits. The prostate gland is enlarged. An incompletely filled bladder demonstrates circumferential wall thic kening likely related to chronic outlet obstruction.. There is no gross evidence of a pelvic mass. T here is no free fluid collection. Lung bases are clear. There is no acute osseous abnormality. IMPRESSION: 1. There is no acute process in the abdomen and pelvis. 2. Fairly stable appearing 10.5 cm mass centered in the left hepatic lobe. 3. Cholelithiasis. 4. Prostatomegaly with likely chronic bladder outlet obstruction. HS:Y
[2024-05-16 10:39] LABS: INR 1.09 (0.9-1.15); Partial Thromboplastin Time 25.9 SEC (24.5-34.5); Prothrombin Time 11.5 sec (9.3-11.8)
[2024-05-16 10:43] LABS: Aspartate Aminotransferase 80 U/L (13-40); Blood Urea Nitrogen 63 mg/dL (9-23); Carbon Dioxide 14 mmol/L (20-31); Chloride 119 mmol/L (98-107); Glucose 250 mg/dL (74-106)
[2024-05-16 11:24] LABS: Bilirubin, Total 0.5 mg/dL (0.2-1.0)
[2024-05-16 11:29] LABS: Anisocytosis Moderate; Hypochromia Moderate; Macrocytosis Moderate; Platelet Estimate Decreased; Polychromasia Slight
[2024-05-16] MEDS: OCTREOTIDE ACETATE 500 MCG in SODIUM CHL 0.9% 99 ML IV SCH ×2 (13:00→23:53)
[2024-05-16] MEDS ORDERED: ONDANSETRON HCL 4 MG/2 ML VIAL IV PRN (13:00)
[2024-05-16] MEDS: SODIUM CHLORIDE 0.9% 1,000 ML IV SCH (13:00)
[2024-05-16] MEDS ORDERED: MORPHINE SULFATE INJ 2 MG/ml SYRG IV PRN (13:00)
[2024-05-16] MEDS ORDERED: DEXTROSE (50%) 50ML SYRG IV PRN (13:00)
--- NOTE | 2024-05-16 13:17 | DVHHP2 ---
History of Present Illness Reason for Visit: rectal bleeding History of Present Illness Dillan Geiger is a 73 old male with past medical history of hypertension, hyperlipidemia, diabetes, CHF, anemia, blood transfusions, CVA, liver disease, hepatitis, thyroid disease, and cholelithiasis who presents to the ED today for rectal bleeding, nausea, and vomiting x1 day. She reports that he was having a bowel movement and he had bright red blood with the stool. Patient reports that 3 months ago he had a blood transfusion at [facility] as well for low blood count. Patient states that he sees his primary once every 3 months. He states that he is compliant with all his medications. Per EMS notes that patient's heart rate was 60 on the field the drop to 30. Patient denies chest pain, shortness of breath, fever, chills, lightheadedness, and dizziness. Cardiovascular: CHF, HTN, hyperipidemia STEAM HAND: CVA Heme/Onc: Anemia NOS Hepatobiliary: Cholelithiasis, Hep A/B/C, Other (liver disease) Endocrine: Diabetes, Hypothyroidism Past Medical History blood transfusion 3 months ago Past Surgical History: None Family History: None Smoke: No ALCOHOL: none Drugs: None Lives: with Family Domestic Violence: Neg Review of Systems Constitutional: No: Fever, Chills, Sweats, Weakness, Malaise, Other Eyes: No: Pain, Vision change, Conjunctivae inflammation, Eyelid inflammation, Other, Redness ENT: No: Ear pain, Ear discharge, Nose pain, Nose discharge, Nose congestion, Mouth pain, Mouth swelling, Throat pain, Throat swelling, Other Respiratory: No: Cough, Dry, Shortness of breath, SOB with excertion, Wheezing, Hemoptysis, Pleuritic Pain, Sputum, Wheezing, Other Cardiovascular: No: Chest Pain, Palpitations, Orthopnea, Paroxysmal Noc. Dyspnea, Edema, Lt Headedness, Other Gastrointestinal: Nausea, Vomiting, Hematochezia; No: Abdominal Pain, Diarrhea, Constipation, Melena, Other Genitourinary: No Dysuria, No Frequency, No Incontinence, No Hematuria, No Retention, No Other Musculoskeletal: No: other, neck pain, shoulder pain, arm pain, back pain, hand pain, leg pain, foot pain Skin: No: Rash, Lesions, Jaundice, Bruising, Other Neurological: No: Weakness, Numbness, Incoordination, Change in speech, Confusion, Seizures, Other Allergies: Coded Allergies: NO KNOWN ALLERGIES (Unverified , 06/08/23) Exam Vital Signs Vital Signs Date Time Temp Pulse Resp B/P (MAP) Pulse Ox O2 Delivery O2 Flow Rate FiO2 05/16/24 12:33 98.0 63 18 139/31 98.0 05/16/24 10:41 100 Room Air* 0 21 General Appearance: Alert, Oriented X3, Cooperative, No acute distress HEENT: Atraumatic, PERRLA, EOMI, Mucous membr. moist/pink Respiratory: Clear to auscultation, Normal air movement Cardiovascular: Regular rate, Normal S1, Normal S2, No murmurs Abdominal: Normal bowel sounds, Soft, No tenderness, No hepatospenomegaly, No masses Extremities: No clubbing, No cyanosis, No edema, Normal pulses, No tenderness/swelling Skin: No rashes, No breakdown, No significant lesion Neuro: Normal gait, Normal speech, Strength at 5/5 X4 ext, Normal tone, Sensation intact Psych/Mental Status: Mental status NL, Mood NL Labs/Xrays Labs Test 05/16/24 11:15 05/16/24 09:38 Range/Units Troponin I High Sensitivity 3 L </=54 ng/L White Blood Count 8.1 4.4-10.8 10^3/uL Red Blood Count 1.35 L 4.5-5.90 10^6/uL Hemoglobin 4.3 *L 13.5-17.5 g/dL Hematocrit 14.3 L 41.0-53.0 % Mean Corpuscular Volume 106.0 H 80.0-100.0 fL Mean Corpuscular Hemoglobin 31.6 28.0-32.0 pg Mean Corpuscular Hemoglobin Concent 29.8 L 32.0-36.0 g/dL Red Cell Distribution Width 24.6 H 11.8-14.3 % Platelet Count 118 L 140-450 10^3/uL Mean Platelet Volume 9.2 6.9-10.8 fL Neutrophils (%) (Auto) 82.7 H 37.0-80.0 % Lymphocytes (%) (Auto) 10.7 10.0-50.0 % Monocytes (%) (Auto) 4.6 0.0-12.0 % Eosinophils (%) (Auto) 1.7 0.0-7.0 % Basophils (%) (Auto) 0.3 0.0-2.0 % Neutrophils # (Auto) 6.7 1.6-8.6 10 ^3/uL Lymphocytes # (Auto) 0.9 0.4-5.4 10 ^3/uL Monocytes # (Auto) 0.4 0-1.3 10 ^3/uL Eosinophils # (Auto) 0.1 0-0.8 10 ^3/uL Basophils # (Auto) 0 0-0.2 10 ^3/uL Nucleated Red Blood Cells 0.0 % Platelet Estimate Decreased Polychromasia Slight Hypochromasia (manual) Moderate Anisocytosis (manual) Moderate Macrocytosis Moderate Prothrombin Time 11.5 9.3-11.8 sec Prothrombin Time INR 1.09 0.9-1.15 Activated Partial Thromboplast Time 25.9 24.5-34.5 SEC Sodium Level 144 136-145 mmol/L Potassium Level 5.1 3.5-5.1 mmol/L Chloride Level 119 H 98-107 mmol/L Carbon Dioxide Level 14 L 20-31 mmol/L Anion Gap 11 5-15 Blood Urea Nitrogen 63 H 9-23 mg/dL Creatinine 3.12 H 0.700-1.30 mg/dL Glomerular Filtration Rate Calc 20 >90 mL/min BUN/Creatinine Ratio 20.2 H 10.0-20.0 Serum Glucose 250 H 74-106 mg/dL Calcium Level 8.9 8.7-10.4 mg/dL Total Bilirubin 0.5 0.2-1.0 mg/dL Aspartate Amino Transferase (AST) 80 H 13-40 U/L Alanine Aminotransferase (ALT) 20 7-40 U/L Alkaline Phosphatase 103 46-116 U/L B-Type Natriuretic Peptide 125.53 0-100 pg/mL Total Protein 6.3 5.7-8.2 g/dL Albumin 3.8 3.2-4.8 g/dL CT ABDOMEN AND PELVIS WITHOUT CONTRAST CLINICAL HISTORY: GI bleeding lower TECHNIQUE: Multiple contiguous axial images of the abdomen and pelvis without intravenous contrast. The images were reformatted degenerate coronal and sagittal reconstructions. All CT scans at this medical facility are performed using dose modulation techniques as appropriate to a performed exam including the following:Automated exposure control was utilized; adjustment of the MA and/or KV according to patient size; and use of iterative reconstruction technique. Radiation Dose Information: CT Dose: CTDI volume is 8.44 mGy. Dose-length product is 440.13 mGy*cm Comparison: CT CT AB PEL WO CON-NO ORAL OR IV on DOS: 02/26/24, CT CT AB PEL WO CON-NO ORAL OR IV on DOS: 06/08/23 FINDINGS: Evaluation of the abdomen and pelvis is limited without intravenous contrast. There is fairly stable appearing 10.5 cm mildly hypodense mass centered in the left hepatic lobe. There are small calcified gallstones in the gallbladder. The pancreas, kidneys, adrenal glands, and spleen appear within normal limits. There is no gross evidence of abdominal lymphadenopathy. There is no free fluid or free air. The stomach grossly appears unremarkable. The small and large bowel loops demonstrate normal caliber and appear within normal limits.. The abdominal aorta and IVC appear within normal limits. The prostate gland is enlarged. An incompletely filled bladder demonstrates circumferential wall thickening likely related to chronic outlet obstruction.. There is no gross evidence of a pelvic mass. There is no free fluid collection. Lung bases are clear. There is no acute osseous abnormality. IMPRESSION: 1. There is no acute process in the abdomen and pelvis. 2. Fairly stable appearing 10.5 cm mass centered in the left hepatic lobe. 3. Cholelithiasis. 4. Prostatomegaly with likely chronic bladder outlet obstruction. Assessment/Plan Assessment/Plan Assessment/Plan: Suspected lower GIB Severe anemia transfuse prbcs GI cx labs ekg trop antiemetics am labs ua octreotide drip ct a/p noted trop noted JOHN on CKD4 IVf am labs DM HgbA1C ISS and accuchecks Thyroid disease continue home med levothyroxine Stable left hepatic lobe mass f/u outpatient with pcp Cholelithiasis f/u outpatient pcp Hepatitis home meds continued - tenofovir monitor labs Prostatomegaly with likely chronic bladder outlet obstruction patient voiding f/u outpatient with pcp FEN/PPX IVf NPO hold dvt ppx, patient bleeding PUD ppx Discussed plan of care with patient and nurse Home medications reconciled Admit to med surg Plan discussed with: Patient Date of Service: May 16, 2024 Billing Provider: MAICOL CARDOZO Common Visit Codes: [id number] INP/OBS CARE (MOD) MAICOL CARDOZO May 16, 2024 13:17
--- NOTE | 2024-05-16 15:42 | DVHINCON2 ---
GI Consult Consult Note GI consult note Date of Consultation: 05/16/2024 Chief Complaint: GI bleed Referring Physician:Sarah TAYLOR H&P: 73-year-old male admitted with rectal bleeding for one day Patient has red blood rectally Patient has nausea and vomiting Patient has history of anemia and has blood transfusions at [facility] in the past Past history of liver disease and hepatitis Past Medical History: Cardiovascular: CHF, HTN, hyperipidemia WOUND CARE RN: CVA Heme/Onc: Anemia NOS Hepatobiliary: Cholelithiasis, hepatitis Endocrine: DM Past Surgical History: None Social History: NO smoking, drinking ETOH and use of illegal drugs. Family History: Noncontributory Review of Systems: Constitutional: no fever, chill, weight loss HEENT: no eye pain, no hearing loss, no oral lesion, no scleral icterus Heart: no chest pain, no chest pressure Lung: no cough, no dyspnea with exertion Abdomen: see HPI Physical exam: General: NAD, AAOX3 Chest: lung buenrostro clear to auscultation Heart: RRR, no murmur Abdomen: non-distended, no tenderness to palpation, +BS Labs: Labs Test 05/16/24 13:21 05/16/24 09:38 Range/Units Troponin I High Sensitivity < 3 L </=54 ng/L White Blood Count 8.1 4.4-10.8 10^3/uL Red Blood Count 1.35 L 4.5-5.90 10^6/uL Hemoglobin 4.3 *L 13.5-17.5 g/dL Hematocrit 14.3 L 41.0-53.0 % Mean Corpuscular Volume 106.0 H 80.0-100.0 fL Mean Corpuscular Hemoglobin 31.6 28.0-32.0 pg Mean Corpuscular Hemoglobin Concent 29.8 L 32.0-36.0 g/dL Red Cell Distribution Width 24.6 H 11.8-14.3 % Platelet Count 118 L 140-450 10^3/uL Mean Platelet Volume 9.2 6.9-10.8 fL Neutrophils (%) (Auto) 82.7 H 37.0-80.0 % Lymphocytes (%) (Auto) 10.7 10.0-50.0 % Monocytes (%) (Auto) 4.6 0.0-12.0 % Eosinophils (%) (Auto) 1.7 0.0-7.0 % Basophils (%) (Auto) 0.3 0.0-2.0 % Neutrophils # (Auto) 6.7 1.6-8.6 10 ^3/uL Lymphocytes # (Auto) 0.9 0.4-5.4 10 ^3/uL Monocytes # (Auto) 0.4 0-1.3 10 ^3/uL Eosinophils # (Auto) 0.1 0-0.8 10 ^3/uL Basophils # (Auto) 0 0-0.2 10 ^3/uL Nucleated Red Blood Cells 0.0 % Platelet Estimate Decreased Polychromasia Slight Hypochromasia (manual) Moderate Anisocytosis (manual) Moderate Macrocytosis Moderate Prothrombin Time 11.5 9.3-11.8 sec Prothrombin Time INR 1.09 0.9-1.15 Activated Partial Thromboplast Time 25.9 24.5-34.5 SEC Sodium Level 144 136-145 mmol/L Potassium Level 5.1 3.5-5.1 mmol/L Chloride Level 119 H 98-107 mmol/L Carbon Dioxide Level 14 L 20-31 mmol/L Anion Gap 11 5-15 Blood Urea Nitrogen 63 H 9-23 mg/dL Creatinine 3.12 H 0.700-1.30 mg/dL Glomerular Filtration Rate Calc 20 >90 mL/min BUN/Creatinine Ratio 20.2 H 10.0-20.0 Serum Glucose 250 H 74-106 mg/dL Hemoglobin A1c < 4.0 <5.7 % A1C Calcium Level 8.9 8.7-10.4 mg/dL Total Bilirubin 0.5 0.2-1.0 mg/dL Aspartate Amino Transferase (AST) 80 H 13-40 U/L Alanine Aminotransferase (ALT) 20 7-40 U/L Alkaline Phosphatase 103 46-116 U/L B-Type Natriuretic Peptide 125.53 0-100 pg/mL Total Protein 6.3 5.7-8.2 g/dL Albumin 3.8 3.2-4.8 g/dL Imaging: CT abdomen pelvis IMPRESSION: 1. There is no acute process in the abdomen and pelvis. 2. Fairly stable appearing 10.5 cm mass centered in the left hepatic lobe. 3. Cholelithiasis. 4. Prostatomegaly with likely chronic bladder outlet obstruction. Assessment: GI bleed Severe anemia Cholelithiasis History of hepatitis Plan: Discussed with Dr. Martin Transfuse if hemoglobin less than seven Monitor labs Hold blood thinners We will continue to monitor the patient Thank you for the consult Date of Service: May 16, 2024 Billing Provider: LISA WINN Common Visit Codes: CONSULT ONLY Consultation Codes: [id number] CONSULT <45MIN LISA WINN May 16, 2024 15:42
[2024-05-16] MEDS: ACCU-CHEK COMFORT CURVE STRIP VI SCH (18:00)
[2024-05-16] MEDS: InsuLIN REG 1unit/0.01ml Soln (100units/ml) SC SCH (18:00)
[2024-05-16 19:19] LABS: Basophils # (auto) 0 10 ^3/uL (0-0.2); Basophils % (auto) 0.3 % (0.0-2.0); Eosinophils # (auto) 0.1 10 ^3/uL (0-0.8); Eosinophils % (auto) 0.9 % (0.0-7.0); Hematocrit 26.2 % (41.0-53.0); Hemoglobin 7.8 g/dL (13.5-17.5); Lymphocytes # (auto) 1.1 10 ^3/uL (0.4-5.4); Lymphocytes % (auto) 15.5 % (10.0-50.0); Mean Corpuscular Hemoglobin 30.3 pg (28.0-32.0); Mean Corpuscular Volume 101.2 fL (80.0-100.0); Monocytes # (auto) 0.4 10 ^3/uL (0-1.3); Monocytes % (auto) 5.6 % (0.0-12.0); Neutrophils # (auto) 5.3 10 ^3/uL (1.6-8.6); Neutrophils % (auto) 77.7 % (37.0-80.0); Platelet Count (auto) 97 10^3/uL (140-450); Red Blood Cells 2.59 10^6/uL (4.5-5.90); Red Cell Distribution Width 20.9 % (11.8-14.3); White Blood Cell 6.8 10^3/uL (4.4-10.8)
[2024-05-16 20:43] LABS: Urine Bacteria FEW /hpf (None Seen); Urine Blood Negative /uL (Negative); Urine Clarity Clear (Clear); Urine Color Light-Yellow (Yellow); Urine Hyaline Cast FEW /lpf (0 - 2); Urine Mucus FEW (None Seen); Urine Protein, UAD 1+ (Negative); Urine Specific Gravity 1.015 (1.001-1.035); Urine Sperm PRESENT /hpf (None Seen); Urine Urobilinogen Normal (Negative); Urine WBC 2 /hpf (0 - 3)
[2024-05-16] MEDS: OCTREOTIDE ACETATE 500 MCG/ML VL ONE (23:54)
[2024-05-16] MEDS: ATORVASTATIN 20 MG TAB PO SCH (23:58)
[2024-05-17] VITALS (9 sets, daily range): BP systolic 111–173; BP diastolic 30–57; PULSE 55–100; RESP 16–18; TEMP 98.1–98.6; O2SAT 62–100
[2024-05-17] MEDS: LEVOTHYROXINE SODIUM 25 MCG TAB PO SCH (05:57)
[2024-05-17 09:42] LABS: Basophils # (auto) 0 10 ^3/uL (0-0.2); Monocytes # (auto) 0.3 10 ^3/uL (0-1.3); Nucleated Red Blood Cells % 0.1 %
[2024-05-17 09:44] LABS: Basophils % (auto) 0.5 % (0.0-2.0); Eosinophils # (auto) 0.1 10 ^3/uL (0-0.8); Eosinophils % (auto) 3.2 % (0.0-7.0); Hematocrit 22.5 % (41.0-53.0); Lymphocytes % (auto) 21.3 % (10.0-50.0); Mean Corpuscular Hgb Conc. 30.9 g/dL (32.0-36.0); Monocytes % (auto) 6.1 % (0.0-12.0); Neutrophils # (auto) 3.1 10 ^3/uL (1.6-8.6); Neutrophils % (auto) 68.9 % (37.0-80.0); Platelet Count (auto) 102 10^3/uL (140-450); Red Blood Cells 2.32 10^6/uL (4.5-5.90); Red Cell Distribution Width 21.3 % (11.8-14.3); White Blood Cell 4.5 10^3/uL (4.4-10.8)
[2024-05-17] MEDS: TENOFOVIR ALAFENAMIDE FUMARATE 25 MG PO SCH (10:00)
[2024-05-17 10:01] LABS: Alanine Aminotransferase 26 U/L (7-40); Albumin 3.7 g/dL (3.2-4.8); Alkaline Phosphatase 78 U/L (46-116); Anion Gap 9 (5-15); BUN/Creatinine Ratio 18.9 (10.0-20.0); Calcium 8.8 mg/dL (8.7-10.4); Total Protein 6.2 g/dL (5.7-8.2)
[2024-05-17 10:03] LABS: Aspartate Aminotransferase 174 U/L (13-40); Bilirubin, Total 1.4 mg/dL (0.2-1.0); Blood Urea Nitrogen 58 mg/dL (9-23); Carbon Dioxide 15 mmol/L (20-31); Chloride 122 mmol/L (98-107); Glucose 126 mg/dL (74-106); Sodium 146 mmol/L (136-145)
[2024-05-17 10:07] LABS: Potassium 5.7 mmol/L (3.5-5.1)
[2024-05-17] MEDS: SODIUM ZIRCONIUM CYCL 10 GM PAK PO ONE (11:41)
[2024-05-17] MEDS: LOSARTAN POTASSIUM 25 MG TAB PO SCH (11:41)
--- NOTE | 2024-05-17 14:18 | DVHPN2 ---
Subjective The patient is seen and examined at bedside. Still complaint of abdominal pain. No hematemesis. Tolerated clear liquid diet. Reviewed: Care Plan, H&P, Labs, Medications, Previous Orders, Radiology Changes from previous H/P or p: No Changes Eyes: No Pain, No Vision change, No Conjunctivae inflammation, No Eyelid inflammation, No Other, No Redness ENT: No Ear pain, No Ear discharge, No Nose pain, No Nose discharge, No Nose congestion, No Mouth pain, No Mouth swelling, No Throat pain, No Throat swelling, No Other Cardiovascular: No Chest Pain, No Palpitations, No Orthopnea, No Paroxysmal Noc. Dyspnea, No Edema, No Lt Headedness, No Other Respiratory: No Cough, No Dry, No Shortness of breath, No SOB with excertion, No Wheezing, No Hemoptysis, No Pleuritic Pain, No Sputum, No Other Gastrointestinal: Nausea, Vomiting; No Abdominal Pain, No Diarrhea, No Constipation, No Melena; Hematochezia; No Other Genitourinary: No Dysuria, No Frequency, No Incontinence, No Hematuria, No Retention, No Other Musculoskeletal: No other, No neck pain, No shoulder pain, No arm pain, No back pain, No hand pain, No leg pain, No foot pain Skin: No Rash, No Lesions, No Jaundice, No Bruising, No Other Objective Vitals Vital Signs Date Time Temp Pulse Resp B/P (MAP) Pulse Ox O2 Delivery O2 Flow Rate FiO2 05/17/24 13:00 98.1 55 16 163/54 (90) 100 98.1 05/16/24 22:46 Room Air* 0 21 Intake/Output Intake and Output 05/17/24 07:00 Intake Total 2340 ml Output Total 300 ml Balance 2040 ml Intake Oral 0 ml IV Total 1140 ml Tube Feeding 0 ml Blood Product 1200 ml Other 0 ml Output Urine Total 200 ml Stool Total 100 ml General Appearance: Alert, Oriented X3, Cooperative, No acute distress HEENT: Atraumatic, PERRLA, EOMI, Mucous membr. moist/pink Neck: Supple Lungs: Clear to auscultation, Normal air movement Cardiovascular: Regular rate, Normal S1, Normal S2, No murmurs, Gallops, Rubs Abdomen: Normal bowel sounds, Soft, No tenderness, No hepatospenomegaly Neuro: Cranial nerves 3-12 NL Psych/Mental Status: Mental status NL Medications Current Medications Medications Dose Ordered Sig/Harlan Route Start Time Stop Time Status Last Admin Dose Admin Sodium Chloride 1,000 ml @ 100 mls/hr Q10H IV 05/16/24 13:00 05/16/24 23:00 100 MLS/HR Ondansetron HCl 4 mg Q4HP PRN IV 05/16/24 13:00 Morphine Sulfate 2 mg Q4HPRN PRN IV 05/16/24 13:00 Diagnostic Test (Pha) 1 strip Q6HR 05/16/24 18:00 05/17/24 12:00 1 STRIP Insulin Human Regular Q6HR SC 05/16/24 18:00 Dextrose 50 ml UD PRN IV 05/16/24 13:00 Levothyroxine Sodium 25 mcg QAM@0600 PO 05/17/24 06:00 05/17/24 05:57 25 MCG Losartan Potassium 25 mg DAILY PO 05/17/24 10:00 05/17/24 11:41 25 MG Atorvastatin Calcium 40 mg HS PO 05/16/24 22:00 05/16/24 23:58 40 MG Patient Own Medication 25 mg DAILY PO 05/17/24 10:00 Octreotide Acetate 500 mcg/ Sodium Chloride 100 ml @ 10 mls/hr Q10H IV 05/16/24 23:15 05/17/24 09:15 10 MLS/HR Laboratory Results Laboratory Tests 05/17/24 09:25 Chemistry Test 05/17/24 09:25 Albumin 3.7 g/dL (3.2-4.8) Calcium Level 8.8 mg/dL (8.7-10.4) Total Protein 6.2 g/dL (5.7-8.2) LFT Test 05/17/24 09:25 Alanine Aminotransferase (ALT) 26 U/L (7-40) Alkaline Phosphatase 78 U/L (46-116) Aspartate Amino Transferase (AST) 174 U/L (13-40) H Total Bilirubin 1.4 mg/dL (0.2-1.0) H Urinalysis Test 05/16/24 18:32 Urine Color Light-yellow (Yellow) Urine Clarity Clear (Clear) Urine pH 5.0 (5.0-9.0) Urine Specific [place] 1.015 (1.001-1.035) Urine Protein 1+ (Negative) H Urine Ketones Negative (Negative) Urine Blood Negative /uL (Negative) Urine Nitrite Negative (Negative) Urine Bilirubin Negative (Negative) Urine Urobilinogen Normal mg/dL (Negative) Urine Leukocyte Esterase Negative /uL (Negative) Urine RBC <1 /hpf (0 - 3) Urine WBC 2 /hpf (0 - 3) Urine Squamous Epithelial Cells Few /hpf (<5) Urine Bacteria Few /hpf (None Seen) H Urine Hyaline Casts Few /lpf (0 - 2) Urine Mucus Few (None Seen) Urine Sperm Present /hpf (None Seen) Urine Glucose Normal mg/dL (Normal) Labs and/or images reviewed: Labs reviewed by me Assessment/Plan Assessment/Plan Acute GI bleed Anemia of acute blood loss Diabetes type 2 uncontrolled Hypothyroidism Cholelithiasis History of hepatitis B, currently on tenofovir Prostatectomy with likely chronic bladder outlet obstruction Plan: Continuing current management. Today his hemoglobin is 7.1. We will type and cross and transfuse one packed red blood cell. We will continuing to monitor his hemoglobin. Continuing sliding scale insulin. Continuing with clear liquid diet. Continuing with Synthroid. Continuing with tenofovir. Waiting for GI specialist to see the patient. This medical document was created using an electronic medical record system with [employer] direct computerized dictation system. Although this document has been carefully reviewed, there may still be some phonetic and typographical errors. These areas are purely typographical due to imperfections of the software programs, and do not reflect any compromise in the patient's medical care. Plan discussed with: Patient My Orders Orders - KALIE HEDRICK MD Procedure Category Date Status Time Obtain Consent For: ORDERS 05/17/24 Transmitted 10:25 Obtain Consent For MARIN 05/17/24 In Process Anesthesia 10:25 Date of Service: May 17, 2024 Billing Provider: KALIE HEDRICK MD Common Visit Codes: [id number] INP/OBS CARE(HIGH) KALIE HEDRICK MD May 17, 2024 14:18
[2024-05-17 21:05] LABS: Basophils # (auto) 0 10 ^3/uL (0-0.2); Basophils % (auto) 0.4 % (0.0-2.0); Eosinophils # (auto) 0.1 10 ^3/uL (0-0.8); Hemoglobin 7.1 g/dL (13.5-17.5); Lymphocytes # (auto) 0.7 10 ^3/uL (0.4-5.4); Neutrophils # (auto) 2.8 10 ^3/uL (1.6-8.6); Nucleated Red Blood Cells % 0.1 %
[2024-05-17 21:07] LABS: Eosinophils % (auto) 3.3 % (0.0-7.0); Hematocrit 23.9 % (41.0-53.0); Lymphocytes % (auto) 18.1 % (10.0-50.0); Mean Corpuscular Hemoglobin 30.1 pg (28.0-32.0); Mean Corpuscular Hgb Conc. 29.7 g/dL (32.0-36.0); Mean Corpuscular Volume 101.3 fL (80.0-100.0); Monocytes # (auto) 0.3 10 ^3/uL (0-1.3); Monocytes % (auto) 8.6 % (0.0-12.0); Neutrophils % (auto) 69.6 % (37.0-80.0); Platelet Count (auto) 114 10^3/uL (140-450); Red Blood Cells 2.36 10^6/uL (4.5-5.90); Red Cell Distribution Width 22.5 % (11.8-14.3)
--- NOTE | 2024-05-17 22:22 | DVHPN2 ---
Progress Note - Dictate Date Seen: May 17, 2024 Medical Necessity Reason Pt with a Central, PICC or Fol: No Subjective Patient reports no further GI bleeding today Repeat hemoglobin stable at 7 0.0-7.1 No transfusion given today vital signs Vital Sign Date Time Temp Pulse Resp B/P (MAP) Pulse Ox O2 Delivery O2 Flow Rate FiO2 05/17/24 21:00 98.1 100 18 173/57 (95) 62 98.1 05/17/24 08:00 Room Air* 0 21 Total Intake and Output 05/16/24 05/16/24 05/17/24 15:00 23:00 07:00 Intake Total 300 ml 1340 ml 700 ml Output Total 0 ml 100 ml 200 ml Balance 300 ml 1240 ml 500 ml medications Current Medications Medications Dose Ordered Sig/Harlan Route Start Time Stop Time Status Last Admin Dose Admin Sodium Chloride 1,000 ml @ 100 mls/hr Q10H IV 05/16/24 13:00 05/17/24 18:20 100 MLS/HR Ondansetron HCl 4 mg Q4HP PRN IV 05/16/24 13:00 Morphine Sulfate 2 mg Q4HPRN PRN IV 05/16/24 13:00 Diagnostic Test (Pha) 1 strip Q6HR 05/16/24 18:00 05/17/24 17:31 1 STRIP Insulin Human Regular Q6HR SC 05/16/24 18:00 05/17/24 17:32 4 UNITS Dextrose 50 ml UD PRN IV 05/16/24 13:00 Levothyroxine Sodium 25 mcg QAM@0600 PO 05/17/24 06:00 05/17/24 05:57 25 MCG Losartan Potassium 25 mg DAILY PO 05/17/24 10:00 05/17/24 11:41 25 MG Atorvastatin Calcium 40 mg HS PO 05/16/24 22:00 05/16/24 23:58 40 MG Patient Own Medication 25 mg DAILY PO 05/17/24 10:00 Octreotide Acetate 500 mcg/ Sodium Chloride 100 ml @ 10 mls/hr Q10H IV 05/16/24 23:15 05/17/24 09:15 10 MLS/HR Hydralazine HCl 10 mg Q6HP PRN IV 05/17/24 17:30 objective General: NAD, AAOX3; mild pallor Chest: lung buenrostro clear to auscultation Heart: RRR, no murmur Abdomen: non-distended, no tenderness to palpation, +BS Extremities without clubbing cyanosis or edema Neuro he is alert oriented x3 with no focal deficit laboratory and microbiology Laboratory Tests 05/17/24 20:55 05/17/24 09:25 Test 05/17/24 09:25 Range/Units Serum Glucose 126 #H 74-106 mg/dL Problems(with codes): (1) Severe anemia (2) GI bleed (3) Acute renal failure (4) CHF (congestive heart failure) (5) Anemia (6) Multifocal pneumonia Prognosis Plan Continue to monitor labs The hemoglobin is less than seven transfuse 1 unit PRBC We can give him IV iron This patient will likely need a colonoscopy and I will arrange that later on in this admission or if discharge possibly as an outpatient Start clear liquid diet I will follow up patient with you Check CEA level Plan discussed with: Patient, Other (Nurse) CC Plasma Assessment Blood Product Administration S: [id number] VASHTI GARZA MD May 17, 2024 22:22
[2024-05-18] VITALS (12 sets, daily range): BP systolic 127–170; BP diastolic 41–60; PULSE 54–63; RESP 16–20; TEMP 97.8–98.9; O2SAT 97–100
[2024-05-18] MEDS: SUCRALFATE 1 GM/10 ML ORAL SUSP PO SCH (05:16)
[2024-05-18] MEDS: PANTOPRAZOLE 40 MG TAB PO SCH (05:16)
[2024-05-18 07:06] LABS: Basophils # (auto) 0 10 ^3/uL (0-0.2); Basophils % (auto) 0.4 % (0.0-2.0); Eosinophils # (auto) 0.1 10 ^3/uL (0-0.8); Lymphocytes # (auto) 0.8 10 ^3/uL (0.4-5.4); Monocytes # (auto) 0.3 10 ^3/uL (0-1.3); Monocytes % (auto) 7.7 % (0.0-12.0); Nucleated Red Blood Cells % 0.2 %; Red Blood Cells 2.29 10^6/uL (4.5-5.90); White Blood Cell 3.9 10^3/uL (4.4-10.8)
[2024-05-18 07:10] LABS: Eosinophils % (auto) 3.1 % (0.0-7.0); Mean Corpuscular Hemoglobin 30.5 pg (28.0-32.0); Mean Corpuscular Hgb Conc. 31.8 g/dL (32.0-36.0); Mean Corpuscular Volume 95.8 fL (80.0-100.0); Neutrophils # (auto) 2.7 10 ^3/uL (1.6-8.6); Neutrophils % (auto) 68.8 % (37.0-80.0); Platelet Count (auto) 105 10^3/uL (140-450); Red Cell Distribution Width 21.3 % (11.8-14.3)
[2024-05-18] MEDS: hydrALAZINE HCL 20 MG/ML VL IV PRN (12:28)
--- NOTE | 2024-05-18 13:05 | DVHPN2 ---
Subjective The patient is seen and examined at bedside. Still complaint of abdominal pain. No hematemesis. Tolerated clear liquid diet. Still weak and dizzy. Hemoglobin is 7 today. Reviewed: Care Plan, H&P, Labs, Medications, Previous Orders, Radiology Changes from previous H/P or p: No Changes Eyes: No Pain, No Vision change, No Conjunctivae inflammation, No Eyelid inflammation, No Other, No Redness ENT: No Ear pain, No Ear discharge, No Nose pain, No Nose discharge, No Nose congestion, No Mouth pain, No Mouth swelling, No Throat pain, No Throat swelling, No Other Cardiovascular: No Chest Pain, No Palpitations, No Orthopnea, No Paroxysmal Noc. Dyspnea, No Edema, No Lt Headedness, No Other Respiratory: No Cough, No Dry, No Shortness of breath, No SOB with excertion, No Wheezing, No Hemoptysis, No Pleuritic Pain, No Sputum, No Other Gastrointestinal: Nausea, Vomiting; No Abdominal Pain, No Diarrhea, No Constipation, No Melena; Hematochezia; No Other Genitourinary: No Dysuria, No Frequency, No Incontinence, No Hematuria, No Retention, No Other Musculoskeletal: No other, No neck pain, No shoulder pain, No arm pain, No back pain, No hand pain, No leg pain, No foot pain Skin: No Rash, No Lesions, No Jaundice, No Bruising, No Other Objective Vitals Vital Signs Date Time Temp Pulse Resp B/P (MAP) Pulse Ox O2 Delivery O2 Flow Rate FiO2 05/18/24 12:39 98.6 57 20 167/43 (84) 97 98.6 05/18/24 08:00 Room Air* 0 21 Intake/Output Intake and Output 05/18/24 07:00 Intake Total 1440 ml Output Total 1000 ml Balance 440 ml Intake Oral 1340 ml IV Total 100 ml Output Urine Total 1000 ml # Voids 4 General Appearance: Alert, Oriented X3, Cooperative, No acute distress HEENT: Atraumatic, PERRLA, EOMI, Mucous membr. moist/pink Neck: Supple Lungs: Clear to auscultation, Normal air movement Cardiovascular: Regular rate, Normal S1, Normal S2, No murmurs, Gallops, Rubs Abdomen: Normal bowel sounds, Soft, No tenderness, No hepatospenomegaly Neuro: Cranial nerves 3-12 NL Psych/Mental Status: Mental status NL Medications Current Medications Medications Dose Ordered Sig/Harlan Route Start Time Stop Time Status Last Admin Dose Admin Sodium Chloride 1,000 ml @ 100 mls/hr Q10H IV 05/16/24 13:00 05/18/24 05:16 100 MLS/HR Ondansetron HCl 4 mg Q4HP PRN IV 05/16/24 13:00 Morphine Sulfate 2 mg Q4HPRN PRN IV 05/16/24 13:00 Diagnostic Test (Pha) 1 strip Q6HR 05/16/24 18:00 05/18/24 11:31 1 STRIP Insulin Human Regular Q6HR SC 05/16/24 18:00 05/18/24 11:39 3 UNITS Dextrose 50 ml UD PRN IV 05/16/24 13:00 Levothyroxine Sodium 25 mcg QAM@0600 PO 05/17/24 06:00 05/18/24 05:16 25 MCG Losartan Potassium 25 mg DAILY PO 05/17/24 10:00 05/18/24 10:02 25 MG Atorvastatin Calcium 40 mg HS PO 05/16/24 22:00 05/17/24 22:00 40 MG Patient Own Medication 25 mg DAILY PO 05/17/24 10:00 Octreotide Acetate 500 mcg/ Sodium Chloride 100 ml @ 10 mls/hr Q10H IV 05/16/24 23:15 05/17/24 23:25 10 MLS/HR Hydralazine HCl 10 mg Q6HP PRN IV 05/17/24 17:30 05/18/24 12:28 10 MG Pantoprazole Sodium 40 mg DAILY@0600 PO 05/18/24 06:00 05/18/24 05:16 40 MG Sucralfate 1 gm BID@0600,2200 PO 05/18/24 06:00 05/18/24 05:16 1 GM Laboratory Results Laboratory Tests 05/17/24 09:25 05/18/24 05:36 Urinalysis Test 05/16/24 18:32 Urine Color Light-yellow (Yellow) Urine Clarity Clear (Clear) Urine pH 5.0 (5.0-9.0) Urine Specific [place] 1.015 (1.001-1.035) Urine Protein 1+ (Negative) H Urine Ketones Negative (Negative) Urine Blood Negative /uL (Negative) Urine Nitrite Negative (Negative) Urine Bilirubin Negative (Negative) Urine Urobilinogen Normal mg/dL (Negative) Urine Leukocyte Esterase Negative /uL (Negative) Urine RBC <1 /hpf (0 - 3) Urine WBC 2 /hpf (0 - 3) Urine Squamous Epithelial Cells Few /hpf (<5) Urine Bacteria Few /hpf (None Seen) H Urine Hyaline Casts Few /lpf (0 - 2) Urine Mucus Few (None Seen) Urine Sperm Present /hpf (None Seen) Urine Glucose Normal mg/dL (Normal) Labs and/or images reviewed: Labs reviewed by me Assessment/Plan Assessment/Plan Acute GI bleed Anemia of acute blood loss Diabetes type 2 uncontrolled Hypothyroidism Cholelithiasis History of hepatitis B, currently on tenofovir 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 We will transfuse one packed red blood cell today. We will continuing to monitor his hemoglobin. Continuing sliding scale insulin. Continuing with clear liquid diet. Continuing with Synthroid. Continuing with tenofovir. Waiting for GI specialist to see the patient. I will add to his regimen hydralazine 10 mg IV every 6 hours p.r.n. for systolic greater than 160 This medical document was created using an electronic medical record system with [employer] direct computerized dictation system. Although this document has been carefully reviewed, there may still be some phonetic and typographical errors. These areas are purely typographical due to imperfections of the software programs, and do not reflect any compromise in the patient's medical care. Plan discussed with: Patient My Orders Orders - KALIE HEDRICK MD Procedure Category Date Status Time Hydralazine Injection PHA 05/17/24 In Process (Apresoline Inject 17:30 Date of Service: May 18, 2024 Billing Provider: KALIE HEDRICK MD Common Visit Codes: [id number] INP/OBS CARE(HIGH) KALIE HEDRICK MD May 18, 2024 13:05
--- NOTE | 2024-05-18 16:29 | DVHPN2 ---
Progress Note - Dictate Date Seen: May 18, 2024 Medical Necessity Reason Pt with a Central, PICC or Fol: No Subjective Patient's son reported a small amount of rectal bleeding His hemoglobin was again 7.0 this morning Patient has been transfused 1 unit of PRBC today which is almost completed He has macrocytic indices suggestive of anemia of chronic disease Patient also has renal insufficiency but his BUN creatinine are slightly trending down today he is, his Bicarb is still low at 15 vital signs Vital Sign Date Time Temp Pulse Resp B/P (MAP) Pulse Ox O2 Delivery O2 Flow Rate FiO2 05/18/24 13:53 97.8 58 16 144/46 97.8 05/18/24 12:39 97 05/18/24 08:00 Room Air* 0 21 Total Intake and Output 05/17/24 05/17/24 05/18/24 15:00 23:00 07:00 Intake Total 100 ml 540 ml 800 ml Output Total 1000 ml Balance 100 ml 540 ml -200 ml medications Current Medications Medications Dose Ordered Sig/Harlan Route Start Time Stop Time Status Last Admin Dose Admin Sodium Chloride 1,000 ml @ 100 mls/hr Q10H IV 05/16/24 13:00 05/18/24 14:28 100 MLS/HR Ondansetron HCl 4 mg Q4HP PRN IV 05/16/24 13:00 Morphine Sulfate 2 mg Q4HPRN PRN IV 05/16/24 13:00 Diagnostic Test (Pha) 1 strip Q6HR 05/16/24 18:00 05/18/24 11:31 1 STRIP Insulin Human Regular Q6HR SC 05/16/24 18:00 05/18/24 11:39 3 UNITS Dextrose 50 ml UD PRN IV 05/16/24 13:00 Levothyroxine Sodium 25 mcg QAM@0600 PO 05/17/24 06:00 05/18/24 05:16 25 MCG Losartan Potassium 25 mg DAILY PO 05/17/24 10:00 05/18/24 10:02 25 MG Atorvastatin Calcium 40 mg HS PO 05/16/24 22:00 05/17/24 22:00 40 MG Patient Own Medication 25 mg DAILY PO 05/17/24 10:00 Octreotide Acetate 500 mcg/ Sodium Chloride 100 ml @ 10 mls/hr Q10H IV 05/16/24 23:15 05/18/24 14:29 10 MLS/HR Hydralazine HCl 10 mg Q6HP PRN IV 05/17/24 17:30 05/18/24 12:28 10 MG Pantoprazole Sodium 40 mg DAILY@0600 PO 05/18/24 06:00 05/18/24 05:16 40 MG Sucralfate 1 gm BID@0600,2200 PO 05/18/24 06:00 05/18/24 05:16 1 GM objective General: NAD, AAOX3; mild pallor Chest: lung buenrostro clear to auscultation Heart: RRR, no murmur Abdomen: non-distended, no tenderness to palpation, +BS Extremities without clubbing cyanosis or edema Neuro he is alert oriented x3 with no focal deficit laboratory and microbiology Laboratory Tests 05/18/24 05:36 05/17/24 09:25 Test 05/17/24 09:25 Range/Units Serum Glucose 126 #H 74-106 mg/dL Problems(with codes): (1) Multifocal pneumonia (2) CHF (congestive heart failure) (3) Anemia (4) Acute renal failure (5) Severe anemia (6) GI bleed (7) Liver mass (8) Elevated serum alpha-fetoprotein level (9) Hepatitis B Prognosis Assessment and plan I was tentatively planning a possible colonoscopy tomorrow however the patient is not medically stable for a bowel prep with a elevated creatinine of 3.0 and low bicarb with some metabolic acidosis Continue to correct his electrolytes and once his renal function improves I will consider colonoscopy Patient has underlying hep B and he has a stable liver mass for the last year about a 10 cm in size that has been noticed on previous CT scans and an MRI a malignancy was not excluded His serum alpha fetoprotein has been rising and was up to 365 on his last admission 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
[2024-05-18 19:47] LABS: Hematocrit 28.9 % (41.0-53.0); Hemoglobin 9.1 g/dL (13.5-17.5)
[2024-05-19] VITALS (8 sets, daily range): BP systolic 157–180; BP diastolic 49–58; PULSE 56–71; RESP 14–17; TEMP 97.7–98.5; O2SAT 97–100
[2024-05-19 07:01] LABS: Basophils # (auto) 0 10 ^3/uL (0-0.2); Basophils % (auto) 0.3 % (0.0-2.0); Eosinophils # (auto) 0.2 10 ^3/uL (0-0.8); Eosinophils % (auto) 3.1 % (0.0-7.0); Hematocrit 27.8 % (41.0-53.0); Hemoglobin 9.2 g/dL (13.5-17.5); Lymphocytes # (auto) 1.6 10 ^3/uL (0.4-5.4); Lymphocytes % (auto) 28.2 % (10.0-50.0); Mean Corpuscular Hemoglobin 30.8 pg (28.0-32.0); Mean Corpuscular Hgb Conc. 33.1 g/dL (32.0-36.0); Monocytes # (auto) 0.4 10 ^3/uL (0-1.3); Monocytes % (auto) 7.5 % (0.0-12.0); Neutrophils # (auto) 3.4 10 ^3/uL (1.6-8.6); Neutrophils % (auto) 60.9 % (37.0-80.0); Nucleated Red Blood Cells % 0.1 %; Platelet Count (auto) 107 10^3/uL (140-450); Red Blood Cells 2.99 10^6/uL (4.5-5.90); Red Cell Distribution Width 20.1 % (11.8-14.3); White Blood Cell 5.5 10^3/uL (4.4-10.8)
[2024-05-19 07:17] LABS: Alanine Aminotransferase 36 U/L (7-40); Alkaline Phosphatase 78 U/L (46-116); Anion Gap 9 (5-15); BUN/Creatinine Ratio 13.8 (10.0-20.0); Calcium 8.8 mg/dL (8.7-10.4); Potassium 4.1 mmol/L (3.5-5.1); Sodium 143 mmol/L (136-145)
[2024-05-19 07:18] LABS: Total Protein 6.6 g/dL (5.7-8.2)
[2024-05-19 07:34] LABS: Chloride 116 mmol/L (98-107)
[2024-05-19 07:35] LABS: Aspartate Aminotransferase 224 U/L (13-40); Bilirubin, Total 1.4 mg/dL (0.2-1.0); Blood Urea Nitrogen 31 mg/dL (9-23); Carbon Dioxide 18 mmol/L (20-31); Glucose 52 mg/dL (74-106)
[2024-05-19 09:21] LABS: % Iron Saturation 29.2 % (20-55)
--- NOTE | 2024-05-19 11:15 | DVHPN2 ---
Subjective The patient is seen and examined at bedside. Still complaint of abdominal pain. No hematemesis. Tolerated clear liquid diet. Still weak and dizzy. Hemoglobin is 7 today. Reviewed: Care Plan, H&P, Labs, Medications, Previous Orders, Radiology Changes from previous H/P or p: No Changes Eyes: No Pain, No Vision change, No Conjunctivae inflammation, No Eyelid inflammation, No Other, No Redness ENT: No Ear pain, No Ear discharge, No Nose pain, No Nose discharge, No Nose congestion, No Mouth pain, No Mouth swelling, No Throat pain, No Throat swelling, No Other Cardiovascular: No Chest Pain, No Palpitations, No Orthopnea, No Paroxysmal Noc. Dyspnea, No Edema, No Lt Headedness, No Other Respiratory: No Cough, No Dry, No Shortness of breath, No SOB with excertion, No Wheezing, No Hemoptysis, No Pleuritic Pain, No Sputum, No Other Gastrointestinal: Nausea, Vomiting; No Abdominal Pain, No Diarrhea, No Constipation, No Melena; Hematochezia; No Other Genitourinary: No Dysuria, No Frequency, No Incontinence, No Hematuria, No Retention, No Other Musculoskeletal: No other, No neck pain, No shoulder pain, No arm pain, No back pain, No hand pain, No leg pain, No foot pain Skin: No Rash, No Lesions, No Jaundice, No Bruising, No Other Objective Vitals Vital Signs Date Time Temp Pulse Resp B/P (MAP) Pulse Ox O2 Delivery O2 Flow Rate FiO2 05/19/24 09:34 174/57 05/19/24 09:00 98.0 61 14 99 98.0 05/19/24 08:00 Room Air* 0 21 Intake/Output Intake and Output 05/19/24 07:00 Intake Total 2000 ml Output Total 2325 ml Balance -325 ml Intake Oral 1700 ml Blood Product 300 ml Output Urine Total 2325 ml # Bowel Movements 2 General Appearance: Alert, Oriented X3, Cooperative, No acute distress HEENT: Atraumatic, PERRLA, EOMI, Mucous membr. moist/pink Neck: Supple Lungs: Clear to auscultation, Normal air movement Cardiovascular: Regular rate, Normal S1, Normal S2, No murmurs, Gallops, Rubs Abdomen: Normal bowel sounds, Soft, No tenderness, No hepatospenomegaly Neuro: Cranial nerves 3-12 NL Psych/Mental Status: Mental status NL Medications Current Medications Medications Dose Ordered Sig/Harlan Route Start Time Stop Time Status Last Admin Dose Admin Sodium Chloride 1,000 ml @ 100 mls/hr Q10H IV 05/16/24 13:00 05/19/24 10:16 100 MLS/HR Ondansetron HCl 4 mg Q4HP PRN IV 05/16/24 13:00 Morphine Sulfate 2 mg Q4HPRN PRN IV 05/16/24 13:00 Diagnostic Test (Pha) 1 strip Q6HR 05/16/24 18:00 05/19/24 06:00 1 STRIP Insulin Human Regular Q6HR SC 05/16/24 18:00 05/19/24 00:19 4 UNITS Dextrose 50 ml UD PRN IV 05/16/24 13:00 Levothyroxine Sodium 25 mcg QAM@0600 PO 05/17/24 06:00 05/19/24 06:00 25 MCG Losartan Potassium 25 mg DAILY PO 05/17/24 10:00 05/19/24 09:34 25 MG Atorvastatin Calcium 40 mg HS PO 05/16/24 22:00 05/18/24 22:35 40 MG Patient Own Medication 25 mg DAILY PO 05/17/24 10:00 Octreotide Acetate 500 mcg/ Sodium Chloride 100 ml @ 10 mls/hr Q10H IV 05/16/24 23:15 05/19/24 10:17 10 MLS/HR Hydralazine HCl 10 mg Q6HP PRN IV 05/17/24 17:30 05/18/24 18:22 10 MG Pantoprazole Sodium 40 mg DAILY@0600 PO 05/18/24 06:00 05/19/24 06:00 40 MG Sucralfate 1 gm BID@0600,2200 PO 05/18/24 06:00 05/19/24 06:00 1 GM Laboratory Results Laboratory Tests 05/19/24 05:45 Chemistry Test 05/19/24 05:45 Albumin 4.0 g/dL (3.2-4.8) Calcium Level 8.8 mg/dL (8.7-10.4) Total Protein 6.6 g/dL (5.7-8.2) LFT Test 05/19/24 05:45 Alanine Aminotransferase (ALT) 36 U/L (7-40) Alkaline Phosphatase 78 U/L (46-116) Aspartate Amino Transferase (AST) 224 U/L (13-40) H Total Bilirubin 1.4 mg/dL (0.2-1.0) H Urinalysis Test 05/16/24 18:32 Urine Color Light-yellow (Yellow) Urine Clarity Clear (Clear) Urine pH 5.0 (5.0-9.0) Urine Specific [place] 1.015 (1.001-1.035) Urine Protein 1+ (Negative) H Urine Ketones Negative (Negative) Urine Blood Negative /uL (Negative) Urine Nitrite Negative (Negative) Urine Bilirubin Negative (Negative) Urine Urobilinogen Normal mg/dL (Negative) Urine Leukocyte Esterase Negative /uL (Negative) Urine RBC <1 /hpf (0 - 3) Urine WBC 2 /hpf (0 - 3) Urine Squamous Epithelial Cells Few /hpf (<5) Urine Bacteria Few /hpf (None Seen) H Urine Hyaline Casts Few /lpf (0 - 2) Urine Mucus Few (None Seen) Urine Sperm Present /hpf (None Seen) Urine Glucose Normal mg/dL (Normal) Labs and/or images reviewed: Labs reviewed by me Assessment/Plan Assessment/Plan Acute GI bleed Anemia of acute blood loss Diabetes type 2 uncontrolled Hypothyroidism Cholelithiasis History of hepatitis B, currently on tenofovir 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 We will transfuse one packed red blood cell today. We will continuing to monitor his hemoglobin. Continuing sliding scale insulin. Continuing with clear liquid diet. Continuing with Synthroid. Continuing with tenofovir. Waiting for GI specialist to see the patient. I will add to his regimen hydralazine 10 mg IV every 6 hours p.r.n. for systolic greater than 160 I will consult [facility] for the liver mass per CT scan. This medical document was created using an electronic medical record system with [employer] computerized dictation system. Although this document has been carefully reviewed, there may still be some phonetic and typographical errors. These areas are purely typographical due to imperfections of the software programs, and do not reflect any compromise in the patient's medical care. Plan discussed with: Patient My Orders Orders - KALIE HEDRICK MD Procedure Category Date Status Time * Hematology/Oncology CONS 05/19/24 Transmitted Consult 11:13 Date of Service: May 19, 2024 Billing Provider: KALIE HEDRICK MD Common Visit Codes: [id number] INP/OBS CARE(HIGH) KALIE HDERICK MD May 19, 2024 11:15
[2024-05-19 11:19] LABS: Folate (Folic Acid) 19.76 ng/mL (>5.38)
[2024-05-20] VITALS (8 sets, daily range): BP systolic 112–167; BP diastolic 41–61; PULSE 60–65; RESP 16–18; TEMP 97.5–98.3; O2SAT 99–100
--- NOTE | 2024-05-20 08:49 | DVHINCON2 ---
Date of service: May 20, [address] Rasheed Novoa Reason for Consultation Hepatic mass History of Present Illness 73 years old [place] gentleman, I talked to his son about his liver mass medical history. He is known to have that hepatic mass at least since 2013 and he had a biopsy done and [facility] and he was told there is a benign lesion. He does not know exactly what the diagnosis was. Now the patient is admitted with rectal bleeding and with some nausea vomiting. He does have a history of anemia and has needed transfusions. Has a history of hepatitis-B The patient had EGD on 02/27/2024 which showed 1 cm pre-pyloric antral inflammatory fold that appeared benign hyperplastic. Minimal gastroduodenitis. 2-3 mm benign appearing duodenal bulb polyp that was removed Has a history of anemia and has needed transfusions in the past. Also has a history of congestive heart failure, hypertension and hyperlipidemia. History of CVA. Alpha-fetoprotein in February [address] of the abdomen pelvis without IV contrast on 05/16/2024 showed no acute process. Fairly stable appearing 10.5 cm mass in the left hepatic lobe compared to 06/08/2023 Cholelithiasis and prostatomegaly with likely chronic bladder outlet obstruction Abdominal MRI on 06/08/2023 without IV contrast showed hepatic mass measuring 9.1 x 8.5 x 9 cm, mildly hyperintense Hepatitis-B surface antigen positive on 02/26/2024 and hepatitis-B surface antibody, hepatitis-C antibody was negative No complaints of any significant weight loss The patient has been given 3 units of packed red cells and the last transfusion was on 05/18/2024 CBC on admission on 05/16/2024 showed a white count of 8.1 h emoglobin 4.3 MCV 106 platelets [id number] and on 05/19/2024 and hemoglobin is 9.2 MCV 93 platelets 107 1000 Patient is planned to have colonoscope evaluation no complaints of abdominal pains nausea vomiting at present Past Medical History Anemia Hepatic mass Hepatitis-B Diabetes Hypothyroidism Anemia needing transfusions History of CVA Congestive heart failure Hyperlipidemia Family History: Patient reports no known family medical history. Social History No Smoking drinking no drugs Allergies: Coded Allergies: NO KNOWN ALLERGIES (Unverified , 06/08/23) Home Meds Active Scripts Pantoprazole Sodium Sesquihydr (Pantoprazole Sodium) 40 Mg Tab, 40 MG PO DAILY@0600 for 30 Days, #30 TAB 3 Refills Prov:DORA MCFARLAND DO 02/28/24 Reported Medications Omeprazole (Omeprazole Dr) 20 Mg Cap, 20 MG PO DAILY 02/27/24 Insulin Lispro (Admelog) 100 Unit/Ml Inj, 10 UNITS SC UD 02/27/24 Insulin Glargine (Basaglar Kwikpen) 100 Unit/Ml Inj, 30 UNITS SC BEFORE DINNER 02/27/24 Levothyroxine Sodium (Levothyroxine Sodium) 25 Mcg Tab, 25 MCG PO QAM ON EMPTY STOMACH 02/27/24 Tenofovir Alafenamide Fumarate (Vemlidy) 25 Mg Tab, 25 MG PO DAILY 02/27/24 Atorvastatin Calcium (ATORVASTATIN CALCIUM) 40 Mg Tab, 1 TAB PO DAILY, #30 TAB 5 Refills 06/10/23 Losartan Potassium (Losartan Potassium) 25 Mg Tab, 1 TAB PO DAILY, #90 TAB 1 Refill 06/10/23 Semaglutide (Ozempic) 2 Mg/3 Ml Inj, 2 MG SC, INJ 06/10/23 Vital Signs Vital Signs Date Time Temp Pulse Resp B/P (MAP) Pulse Ox O2 Delivery O2 Flow Rate FiO2 05/20/24 05:00 97.5 65 18 160/54 (89) 99 97.5 05/19/24 20:00 Room Air* 0 21 Physical Exam Moderately built and nourished, in no acute distress, alert and oriented. No jaundice Head and neck: Unremarkable for any masses or neck nodes. No conjunctival or mucosal hemorrhage Lungs: Clear Cardiovascular: S1-S2 heard well Abdomen: No organomegaly, tenderness or ascites. Bowel sounds are present. Extremities: No clubbing edema cyanosis or calf tenderness. Skin: Unremarkable for petechia purpura ecchymosis Lymphadenopathy: None Neurological exam: No focal deficit Labs/Diagnostic Data Labs Test 05/20/24 05:43 05/19/24 05:45 05/18/24 05:36 05/16/24 18:32 Range/Units POC Glucose 80 70-106 mg/dl White Blood Count 5.5 # 4.4-10.8 10^3/uL Red Blood Count 2.99 L 4.5-5.90 10^6/uL Hemoglobin 9.2 L 13.5-17.5 g/dL Hematocrit 27.8 L 41.0-53.0 % Mean Corpuscular Volume 93.0 80.0-100.0 fL Mean Corpuscular Hemoglobin 30.8 28.0-32.0 pg Mean Corpuscular Hemoglobin Concent 33.1 32.0-36.0 g/dL Red Cell Distribution Width 20.1 H 11.8-14.3 % Platelet Count 107 L 140-450 10^3/uL Mean Platelet Volume 8.0 6.9-10.8 fL Neutrophils (%) (Auto) 60.9 37.0-80.0 % Lymphocytes (%) (Auto) 28.2 10.0-50.0 % Monocytes (%) (Auto) 7.5 0.0-12.0 % Eosinophils (%) (Auto) 3.1 0.0-7.0 % Basophils (%) (Auto) 0.3 0.0-2.0 % Neutrophils # (Auto) 3.4 1.6-8.6 10 ^3/uL Lymphocytes # (Auto) 1.6 0.4-5.4 10 ^3/uL Monocytes # (Auto) 0.4 0-1.3 10 ^3/uL Eosinophils # (Auto) 0.2 0-0.8 10 ^3/uL Basophils # (Auto) 0 0-0.2 10 ^3/uL Nucleated Red Blood Cells 0.1 % Sodium Level 143 136-145 mmol/L Potassium Level 4.1 3.5-5.1 mmol/L Chloride Level 116 H 98-107 mmol/L Carbon Dioxide Level 18 L 20-31 mmol/L Anion Gap 9 5-15 Blood Urea Nitrogen 31 #H 9-23 mg/dL Creatinine 2.24 H 0.700-1.30 mg/dL Glomerular Filtration Rate Calc 30 >90 mL/min BUN/Creatinine Ratio 13.8 10.0-20.0 Serum Glucose 52 L 74-106 mg/dL Calcium Level 8.8 8.7-10.4 mg/dL Iron Level 56 L 65-175 ug/dL Total Iron Binding Capacity 192 L 250-425 ug/dL Percent Iron Saturation 29.2 20-55 % Total Bilirubin 1.4 H 0.2-1.0 mg/dL Aspartate Amino Transferase (AST) 224 H 13-40 U/L Alanine Aminotransferase (ALT) 36 7-40 U/L Alkaline Phosphatase 78 46-116 U/L Total Protein 6.6 5.7-8.2 g/dL Albumin 4.0 3.2-4.8 g/dL Vitamin B12 Level 547 211-911 pg/mL Folic Acid 19.76 >5.38 ng/mL Carcinoembryonic Antigen 2.46 <=5.0 ng/mL Urine Color Light-yellow Yellow Urine Clarity Clear Clear Urine pH 5.0 5.0-9.0 Urine Specific [place] 1.015 1.001-1.035 Urine Protein 1+ H Negative Urine Ketones Negative Negative Urine Blood Negative Negative /uL Urine Nitrite Negative Negative Urine Bilirubin Negative Negative Urine Urobilinogen Normal Negative mg/dL Urine Leukocyte Esterase Negative Negative /uL Urine RBC <1 0 - 3 /hpf Urine WBC 2 0 - 3 /hpf Urine Squamous Epithelial Cells Few <5 /hpf Urine Bacteria Few H None Seen /hpf Urine Hyaline Casts Few 0 - 2 /lpf Urine Mucus Few None Seen Urine Sperm Present None Seen /hpf Urine Glucose Normal Normal mg/dL Test 05/16/24 13:21 05/16/24 09:38 Range/Units Troponin I High Sensitivity < 3 L </=54 ng/L Thyroid Stimulating Hormone (TSH) 2.26 0.55-4.78 uIU/mL Platelet Estimate Decreased Polychromasia Slight Hypochromasia (manual) Moderate Anisocytosis (manual) Moderate Macrocytosis Moderate Prothrombin Time 11.5 9.3-11.8 sec Prothrombin Time INR 1.09 0.9-1.15 Activated Partial Thromboplast Time 25.9 24.5-34.5 SEC Hemoglobin A1c < 4.0 <5.7 % A1C B-Type Natriuretic Peptide 125.53 0-100 pg/mL Assessment 1. Hepatic mass for the last 10 years and has been biopsied in 2013 which per patient and his son was a benign no malignancy. The patient has a history of hepatitis-B Has had anemia, B12 547 folate 19.7, total protein 6.6 albumin four LDH 252 AST 224 ALT 36 ferritin 18.3 iron saturation 29.2 serum iron 56 GFR 30 The etiology of anemia could be multifactorial with iron deficiency, secondary to liver disease, secondary to renal insufficiency. May rule out hemolytic anemia 2. GI bleed with fresh blood in the stools 3. Diabetes 4. Hypothyroidism 5. History of hepatitis-B and has been on tenofovir 6. Hypertension 7. High alpha-fetoprotein which could be secondary to hepatitis Plan/Recommendation Colonoscopic evaluation Follow the alpha-fetoprotein If there is any change in the size of the hepatic mass it may need to be biopsied again We will check direct Volodymyr and LDH Plan discussed with: Patient, Son RAYSHAWNDEZ Edwards MD May 20, 2024 08:49
--- NOTE | 2024-05-20 11:01 | DVHPN2 ---
Subjective The patient is seen and examined at bedside. Still complaint of abdominal pain. No hematemesis. Tolerated clear liquid diet. Still weak and dizzy. Reviewed: Care Plan, H&P, Labs, Medications, Previous Orders, Radiology Changes from previous H/P or p: No Changes Eyes: No Pain, No Vision change, No Conjunctivae inflammation, No Eyelid inflammation, No Other, No Redness ENT: No Ear pain, No Ear discharge, No Nose pain, No Nose discharge, No Nose congestion, No Mouth pain, No Mouth swelling, No Throat pain, No Throat swelling, No Other Cardiovascular: No Chest Pain, No Palpitations, No Orthopnea, No Paroxysmal Noc. Dyspnea, No Edema, No Lt Headedness, No Other Respiratory: No Cough, No Dry, No Shortness of breath, No SOB with excertion, No Wheezing, No Hemoptysis, No Pleuritic Pain, No Sputum, No Other Gastrointestinal: Nausea, Vomiting; No Abdominal Pain, No Diarrhea, No Constipation, No Melena; Hematochezia; No Other Genitourinary: No Dysuria, No Frequency, No Incontinence, No Hematuria, No Retention, No Other Musculoskeletal: No other, No neck pain, No shoulder pain, No arm pain, No back pain, No hand pain, No leg pain, No foot pain Skin: No Rash, No Lesions, No Jaundice, No Bruising, No Other Objective Vitals Vital Signs Date Time Temp Pulse Resp B/P (MAP) Pulse Ox O2 Delivery O2 Flow Rate FiO2 05/20/24 09:49 156/50 05/20/24 08:36 98.0 63 18 99 98.0 05/19/24 20:00 Room Air* 0 21 Intake/Output Intake and Output 05/20/24 07:00 Intake Total 1200 ml Output Total 1351 ml Balance -151 ml Intake Oral 1200 ml Output Urine Total 1350 ml Stool Total 1 ml # Voids 2 # Bowel Movements 1 General Appearance: Alert, Oriented X3, Cooperative, No acute distress HEENT: Atraumatic, PERRLA, EOMI, Mucous membr. moist/pink Neck: Supple Lungs: Clear to auscultation, Normal air movement Cardiovascular: Regular rate, Normal S1, Normal S2, No murmurs, Gallops, Rubs Abdomen: Normal bowel sounds, Soft, No tenderness, No hepatospenomegaly Neuro: Cranial nerves 3-12 NL Psych/Mental Status: Mental status NL Medications Current Medications Medications Dose Ordered Sig/Harlan Route Start Time Stop Time Status Last Admin Dose Admin Sodium Chloride 1,000 ml @ 100 mls/hr Q10H IV 05/16/24 13:00 05/20/24 06:58 100 MLS/HR Ondansetron HCl 4 mg Q4HP PRN IV 05/16/24 13:00 Morphine Sulfate 2 mg Q4HPRN PRN IV 05/16/24 13:00 Diagnostic Test (Pha) 1 strip Q6HR 05/16/24 18:00 05/20/24 05:44 1 STRIP Insulin Human Regular Q6HR SC 05/16/24 18:00 05/20/24 00:05 2 UNITS Dextrose 50 ml UD PRN IV 05/16/24 13:00 Levothyroxine Sodium 25 mcg QAM@0600 PO 05/17/24 06:00 05/20/24 05:40 25 MCG Losartan Potassium 25 mg DAILY PO 05/17/24 10:00 05/20/24 09:49 25 MG Atorvastatin Calcium 40 mg HS PO 05/16/24 22:00 05/19/24 21:51 40 MG Patient Own Medication 25 mg DAILY PO 05/17/24 10:00 Octreotide Acetate 500 mcg/ Sodium Chloride 100 ml @ 10 mls/hr Q10H IV 05/16/24 23:15 05/20/24 07:53 10 MLS/HR Hydralazine HCl 10 mg Q6HP PRN IV 05/17/24 17:30 05/19/24 17:42 10 MG Pantoprazole Sodium 40 mg DAILY@0600 PO 05/18/24 06:00 05/20/24 05:40 40 MG Sucralfate 1 gm BID@0600,2200 PO 05/18/24 06:00 05/20/24 05:40 1 GM Laboratory Results Laboratory Tests 05/19/24 05:45 Urinalysis Test 05/16/24 18:32 Urine Color Light-yellow (Yellow) Urine Clarity Clear (Clear) Urine pH 5.0 (5.0-9.0) Urine Specific [place] 1.015 (1.001-1.035) Urine Protein 1+ (Negative) H Urine Ketones Negative (Negative) Urine Blood Negative /uL (Negative) Urine Nitrite Negative (Negative) Urine Bilirubin Negative (Negative) Urine Urobilinogen Normal mg/dL (Negative) Urine Leukocyte Esterase Negative /uL (Negative) Urine RBC <1 /hpf (0 - 3) Urine WBC 2 /hpf (0 - 3) Urine Squamous Epithelial Cells Few /hpf (<5) Urine Bacteria Few /hpf (None Seen) H Urine Hyaline Casts Few /lpf (0 - 2) Urine Mucus Few (None Seen) Urine Sperm Present /hpf (None Seen) Urine Glucose Normal mg/dL (Normal) Labs and/or images reviewed: Labs reviewed by me Assessment/Plan Assessment/Plan Acute GI bleed Anemia of acute blood loss Diabetes type 2 uncontrolled Hypothyroidism Cholelithiasis History of hepatitis B, currently on tenofovir 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 Plan: Continuing current management. We will continuing to monitor his hemoglobin. Continuing sliding scale insulin. Continuing with clear liquid diet. Continuing with Synthroid. Continuing with tenofovir. I will add to his regimen hydralazine 10 mg IV every 6 hours p.r.n. for systolic greater than 160, Will consult nephrology. Heme onc and GI input appreciate. Waiting for colonoscopy. Waiting for alpha protein. Liver mass in chronic . This medical document was created using an electronic medical record system with [employer] direct computerized dictation system. Although this document has been carefully reviewed, there may still be some phonetic and typographical errors. These areas are purely typographical due to imperfections of the software programs, and do not reflect any compromise in the patient's medical care. Plan discussed with: Patient My Orders Orders - KALIE HEDRICK MD Procedure Category Date Status Time * Hematology/Oncology CONS 05/19/24 Transmitted Consult 11:13 Complete Blood Count LAB 05/20/24 Logged 10:05 Basic Metabolic Panel LAB 05/20/24 Logged 10:05 *Dr. Liam Hui CONS 05/20/24 Transmitted -[place] 10:07 Date of Service: May 20, 2024 Billing Provider: KALIE HEDRICK MD Common Visit Codes: [id number] INP/OBS CARE(HIGH) KALIE HEDRICK MD May 20, 2024 11:01
[2024-05-20] MEDS: SODIUM BICARB 50mEq/50ml Vial 50 ML in SOD CHL 0.45% 1,000 ML IV SCH (11:15)
--- NOTE | 2024-05-20 11:19 | DVHINCON2 ---
Date of service: May 20, [address] Feldman Reason for Consultation Acute kidney injury History of Present Illness Patient is a 73-year-old male with past medical history significant for diabetes mellitus, hypertension, hyperlipidemia, CVA x2, Congestive heart failure and liver disease admitted because of rectal bleeding. Patient is Danish [id number], history and review of systems obtained through a phone witnessed meals agricultural extension officer. On admission patient found to have elevated BUN creatinine nephrology is consulted for acute kidney injury Past Medical History PAST MEDICAL HISTORY: CHF, CVA, DM, Gallstones, HTN, Liver, Thyroid Past Surgical History Surgical History: Denies all surgeries Allergies: Coded Allergies: NO KNOWN ALLERGIES (Unverified , 06/08/23) Home Meds Active Scripts Pantoprazole Sodium Sesquihydr (Pantoprazole Sodium) 40 Mg Tab, 40 MG PO DAILY@0600 for 30 Days, #30 TAB 3 Refills Prov:DORA MCFARLAND DO 02/28/24 Reported Medications Omeprazole (Omeprazole Dr) 20 Mg Cap, 20 MG PO DAILY 02/27/24 Insulin Lispro (Admelog) 100 Unit/Ml Inj, 10 UNITS SC UD 02/27/24 Insulin Glargine (Basaglar Kwikpen) 100 Unit/Ml Inj, 30 UNITS SC BEFORE DINNER 02/27/24 Levothyroxine Sodium (Levothyroxine Sodium) 25 Mcg Tab, 25 MCG PO QAM ON EMPTY STOMACH 02/27/24 Tenofovir Alafenamide Fumarate (Vemlidy) 25 Mg Tab, 25 MG PO DAILY 02/27/24 Atorvastatin Calcium (ATORVASTATIN CALCIUM) 40 Mg Tab, 1 TAB PO DAILY, #30 TAB 5 Refills 06/10/23 Losartan Potassium (Losartan Potassium) 25 Mg Tab, 1 TAB PO DAILY, #90 TAB 1 Refill 06/10/23 Semaglutide (Ozempic) 2 Mg/3 Ml Inj, 2 MG SC, INJ 06/10/23 Current Medications Current Medications Medications (Trade) Dose Ordered Sig/Harlan Route PRN Reason Start Time Stop Time Status Last Admin Sodium Bicarbonate 50 ml/ Sodium Chloride 1,050 ml @ 100 mls/hr [id number] IV 05/20/24 11:15 05/20/24 11:15 Family History: Patient reports no known family medical history. Review of Systems All 12 item review of systems reviewed with the patient nonsignificant except what is mentioned in the history of present illness H&P Exam Vital Signs/I&O Vital Sign Date Time Temp Pulse Resp B/P (MAP) Pulse Ox O2 Delivery O2 Flow Rate FiO2 05/20/24 09:49 156/50 05/20/24 08:36 98.0 63 18 99 98.0 05/20/24 08:00 Room Air* 0 21 Intake and Output 05/19/24 05/20/24 19:00 07:00 Intake Total 1000 ml 200 ml Output Total 801 ml 550 ml Balance 199 ml -350 ml Intake Oral 1000 ml 200 ml Output Urine Total 800 ml 550 ml Stool Total 1 ml # Voids 2 # Bowel Movements 1 Physical Exam Patient is awake alert Lungs clear to auscultation bilaterally Cardiac exam regular rate and rhythm GI soft nontender was normal Extremities no clubbing cyanosis or edema Neuro nonfocal Labs/Diagnostic Data Labs/Diagnostic Data Laboratory Tests Test 05/20/24 11:20 05/20/24 05:43 05/20/24 00:03 05/19/24 16:10 Range/Units White Blood Count 4.6 4.4-10.8 10^3/uL Red Blood Count 2.94 L 4.5-5.90 10^6/uL Hemoglobin 8.8 L 13.5-17.5 g/dL Hematocrit 27.3 L 41.0-53.0 % Mean Corpuscular Volume 92.8 80.0-100.0 fL Mean Corpuscular Hemoglobin 30.0 28.0-32.0 pg Mean Corpuscular Hemoglobin Concent 32.3 32.0-36.0 g/dL Red Cell Distribution Width 20.0 H 11.8-14.3 % Platelet Count 98 L 140-450 10^3/uL Mean Platelet Volume 8.1 6.9-10.8 fL Neutrophils (%) (Auto) 72.6 37.0-80.0 % Lymphocytes (%) (Auto) 18.0 10.0-50.0 % Monocytes (%) (Auto) 6.6 0.0-12.0 % Eosinophils (%) (Auto) 2.6 0.0-7.0 % Basophils (%) (Auto) 0.2 0.0-2.0 % Neutrophils # (Auto) 3.4 1.6-8.6 10 ^3/uL Lymphocytes # (Auto) 0.8 0.4-5.4 10 ^3/uL Monocytes # (Auto) 0.3 0-1.3 10 ^3/uL Eosinophils # (Auto) 0.1 0-0.8 10 ^3/uL Basophils # (Auto) 0 0-0.2 10 ^3/uL Nucleated Red Blood Cells 0.1 % Sodium Level 137 # 136-145 mmol/L Potassium Level 4.9 3.5-5.1 mmol/L Chloride Level 110 H 98-107 mmol/L Carbon Dioxide Level 19 L 20-31 mmol/L Anion Gap 8 5-15 Blood Urea Nitrogen 25 H 9-23 mg/dL Creatinine 2.37 H 0.700-1.30 mg/dL Glomerular Filtration Rate Calc 28 >90 mL/min BUN/Creatinine Ratio 10.5 10.0-20.0 Serum Glucose 265 #H 74-106 mg/dL Calcium Level 8.5 L 8.7-10.4 mg/dL Phosphorus Level 3.7 2.4-5.1 mg/dL Magnesium Level 1.9 1.6-2.6 mg/dL Vitamin D 25-Hydroxy 27.6 L 30.0-100 ng/mL Parathyroid Hormone (Intact) 156.9 H 18.4-80.1 pg/mL POC Glucose 80 155 H 231 H 70-106 mg/dl Test 05/19/24 11:19 05/19/24 06:39 05/19/24 06:27 05/19/24 06:17 Range/Units POC Glucose 270 H 86 71 54 L 70-106 mg/dl Test 05/19/24 06:05 05/19/24 06:04 05/19/24 05:45 05/18/24 23:56 Range/Units POC Glucose 59 L 56 L 203 H 70-106 mg/dl White Blood Count 5.5 # 4.4-10.8 10^3/uL Red Blood Count 2.99 L 4.5-5.90 10^6/uL Hemoglobin 9.2 L 13.5-17.5 g/dL Hematocrit 27.8 L 41.0-53.0 % Mean Corpuscular Volume 93.0 80.0-100.0 fL Mean Corpuscular Hemoglobin 30.8 28.0-32.0 pg Mean Corpuscular Hemoglobin Concent 33.1 32.0-36.0 g/dL Red Cell Distribution Width 20.1 H 11.8-14.3 % Platelet Count 107 L 140-450 10^3/uL Mean Platelet Volume 8.0 6.9-10.8 fL Neutrophils (%) (Auto) 60.9 37.0-80.0 % Lymphocytes (%) (Auto) 28.2 10.0-50.0 % Monocytes (%) (Auto) 7.5 0.0-12.0 % Eosinophils (%) (Auto) 3.1 0.0-7.0 % Basophils (%) (Auto) 0.3 0.0-2.0 % Neutrophils # (Auto) 3.4 1.6-8.6 10 ^3/uL Lymphocytes # (Auto) 1.6 0.4-5.4 10 ^3/uL Monocytes # (Auto) 0.4 0-1.3 10 ^3/uL Eosinophils # (Auto) 0.2 0-0.8 10 ^3/uL Basophils # (Auto) 0 0-0.2 10 ^3/uL Nucleated Red Blood Cells 0.1 % Sodium Level 143 136-145 mmol/L Potassium Level 4.1 3.5-5.1 mmol/L Chloride Level 116 H 98-107 mmol/L Carbon Dioxide Level 18 L 20-31 mmol/L Anion Gap 9 5-15 Blood Urea Nitrogen 31 #H 9-23 mg/dL Creatinine 2.24 H 0.700-1.30 mg/dL Glomerular Filtration Rate Calc 30 >90 mL/min BUN/Creatinine Ratio 13.8 10.0-20.0 Serum Glucose 52 L 74-106 mg/dL Calcium Level 8.8 8.7-10.4 mg/dL Iron Level 56 L 65-175 ug/dL Total Iron Binding Capacity 192 L 250-425 ug/dL Percent Iron Saturation 29.2 20-55 % Total Bilirubin 1.4 H 0.2-1.0 mg/dL Aspartate Amino Transferase (AST) 224 H 13-40 U/L Alanine Aminotransferase (ALT) 36 7-40 U/L Alkaline Phosphatase 78 46-116 U/L Total Protein 6.6 5.7-8.2 g/dL Albumin 4.0 3.2-4.8 g/dL Tumor Marker Alpha Fetoprotein 580.0 H 0.0-8.4 ng/mL Vitamin B12 Level 547 211-911 pg/mL Folic Acid 19.76 >5.38 ng/mL Test 05/18/24 19:27 05/18/24 18:05 05/18/24 05:36 05/17/24 23:08 Range/Units Hemoglobin 9.1 #L 7.0 *L 13.5-17.5 g/dL Hematocrit 28.9 #L 22.0 L 41.0-53.0 % POC Glucose 206 H 338 H 70-106 mg/dl White Blood Count 3.9 L 4.4-10.8 10^3/uL Red Blood Count 2.29 L 4.5-5.90 10^6/uL Mean Corpuscular Volume 95.8 # 80.0-100.0 fL Mean Corpuscular Hemoglobin 30.5 28.0-32.0 pg Mean Corpuscular Hemoglobin Concent 31.8 L 32.0-36.0 g/dL Red Cell Distribution Width 21.3 H 11.8-14.3 % Platelet Count 105 L 140-450 10^3/uL Mean Platelet Volume 8.0 6.9-10.8 fL Neutrophils (%) (Auto) 68.8 37.0-80.0 % Lymphocytes (%) (Auto) 20.0 10.0-50.0 % Monocytes (%) (Auto) 7.7 0.0-12.0 % Eosinophils (%) (Auto) 3.1 0.0-7.0 % Basophils (%) (Auto) 0.4 0.0-2.0 % Neutrophils # (Auto) 2.7 1.6-8.6 10 ^3/uL Lymphocytes # (Auto) 0.8 0.4-5.4 10 ^3/uL Monocytes # (Auto) 0.3 0-1.3 10 ^3/uL Eosinophils # (Auto) 0.1 0-0.8 10 ^3/uL Basophils # (Auto) 0 0-0.2 10 ^3/uL Nucleated Red Blood Cells 0.2 % Carcinoembryonic Antigen 2.46 <=5.0 ng/mL Test 05/17/24 20:55 05/17/24 17:22 05/17/24 11:14 05/17/24 09:25 Range/Units White Blood Count 4.0 L 4.5 # 4.4-10.8 10^3/uL Red Blood Count 2.36 L 2.32 L 4.5-5.90 10^6/uL Hemoglobin 7.1 L 7.0 *L 13.5-17.5 g/dL Hematocrit 23.9 L 22.5 #L 41.0-53.0 % Mean Corpuscular Volume 101.3 #H 97.0 # 80.0-100.0 fL Mean Corpuscular Hemoglobin 30.1 30.0 28.0-32.0 pg Mean Corpuscular Hemoglobin Concent 29.7 L 30.9 L 32.0-36.0 g/dL Red Cell Distribution Width 22.5 H 21.3 H 11.8-14.3 % Platelet Count 114 L 102 L 140-450 10^3/uL Mean Platelet Volume 8.6 8.2 6.9-10.8 fL Neutrophils (%) (Auto) 69.6 68.9 37.0-80.0 % Lymphocytes (%) (Auto) 18.1 21.3 10.0-50.0 % Monocytes (%) (Auto) 8.6 6.1 0.0-12.0 % Eosinophils (%) (Auto) 3.3 3.2 0.0-7.0 % Basophils (%) (Auto) 0.4 0.5 0.0-2.0 % Neutrophils # (Auto) 2.8 3.1 1.6-8.6 10 ^3/uL Lymphocytes # (Auto) 0.7 1.0 0.4-5.4 10 ^3/uL Monocytes # (Auto) 0.3 0.3 0-1.3 10 ^3/uL Eosinophils # (Auto) 0.1 0.1 0-0.8 10 ^3/uL Basophils # (Auto) 0 0 0-0.2 10 ^3/uL Nucleated Red Blood Cells 0.1 0.1 % POC Glucose 249 H 131 H 70-106 mg/dl Sodium Level 146 H 136-145 mmol/L Potassium Level 5.7 *H 3.5-5.1 mmol/L Chloride Level 122 H 98-107 mmol/L Carbon Dioxide Level 15 L 20-31 mmol/L Anion Gap 9 5-15 Blood Urea Nitrogen 58 H 9-23 mg/dL Creatinine 3.07 H 0.700-1.30 mg/dL Glomerular Filtration Rate Calc 21 >90 mL/min BUN/Creatinine Ratio 18.9 10.0-20.0 Serum Glucose 126 #H 74-106 mg/dL Calcium Level 8.8 8.7-10.4 mg/dL Total Bilirubin 1.4 H 0.2-1.0 mg/dL Aspartate Amino Transferase (AST) 174 H 13-40 U/L Alanine Aminotransferase (ALT) 26 7-40 U/L Alkaline Phosphatase 78 46-116 U/L Total Protein 6.2 5.7-8.2 g/dL Albumin 3.7 3.2-4.8 g/dL Test 05/17/24 05:49 05/16/24 23:43 05/16/24 19:04 05/16/24 18:32 Range/Units POC Glucose 75 108 H 70-106 mg/dl White Blood Count 6.8 4.4-10.8 10^3/uL Red Blood Count 2.59 L 4.5-5.90 10^6/uL Hemoglobin 7.8 #L 13.5-17.5 g/dL Hematocrit 26.2 #L 41.0-53.0 % Mean Corpuscular Volume 101.2 #H 80.0-100.0 fL Mean Corpuscular Hemoglobin 30.3 28.0-32.0 pg Mean Corpuscular Hemoglobin Concent 30.0 L 32.0-36.0 g/dL Red Cell Distribution Width 20.9 H 11.8-14.3 % Platelet Count 97 L 140-450 10^3/uL Mean Platelet Volume 8.8 6.9-10.8 fL Neutrophils (%) (Auto) 77.7 37.0-80.0 % Lymphocytes (%) (Auto) 15.5 10.0-50.0 % Monocytes (%) (Auto) 5.6 0.0-12.0 % Eosinophils (%) (Auto) 0.9 0.0-7.0 % Basophils (%) (Auto) 0.3 0.0-2.0 % Neutrophils # (Auto) 5.3 1.6-8.6 10 ^3/uL Lymphocytes # (Auto) 1.1 0.4-5.4 10 ^3/uL Monocytes # (Auto) 0.4 0-1.3 10 ^3/uL Eosinophils # (Auto) 0.1 0-0.8 10 ^3/uL Basophils # (Auto) 0 0-0.2 10 ^3/uL Nucleated Red Blood Cells 0.0 % Urine Color Light-yellow Yellow Urine Clarity Clear Clear Urine pH 5.0 5.0-9.0 Urine Specific [place] 1.015 1.001-1.035 Urine Protein 1+ H Negative Urine Ketones Negative Negative Urine Blood Negative Negative /uL Urine Nitrite Negative Negative Urine Bilirubin Negative Negative Urine Urobilinogen Normal Negative mg/dL Urine Leukocyte Esterase Negative Negative /uL Urine RBC <1 0 - 3 /hpf Urine WBC 2 0 - 3 /hpf Urine Squamous Epithelial Cells Few <5 /hpf Urine Bacteria Few H None Seen /hpf Urine Hyaline Casts Few 0 - 2 /lpf Urine Mucus Few None Seen Urine Sperm Present None Seen /hpf Urine Glucose Normal Normal mg/dL Test 05/16/24 13:21 05/16/24 11:15 05/16/24 09:38 Range/Units Troponin I High Sensitivity < 3 L 3 L < 3 L </=54 ng/L Thyroid Stimulating Hormone (TSH) 2.26 0.55-4.78 uIU/mL White Blood Count 8.1 4.4-10.8 10^3/uL Red Blood Count 1.35 L 4.5-5.90 10^6/uL Hemoglobin 4.3 *L 13.5-17.5 g/dL Hematocrit 14.3 L 41.0-53.0 % Mean Corpuscular Volume 106.0 H 80.0-100.0 fL Mean Corpuscular Hemoglobin 31.6 28.0-32.0 pg Mean Corpuscular Hemoglobin Concent 29.8 L 32.0-36.0 g/dL Red Cell Distribution Width 24.6 H 11.8-14.3 % Platelet Count 118 L 140-450 10^3/uL Mean Platelet Volume 9.2 6.9-10.8 fL Neutrophils (%) (Auto) 82.7 H 37.0-80.0 % Lymphocytes (%) (Auto) 10.7 10.0-50.0 % Monocytes (%) (Auto) 4.6 0.0-12.0 % Eosinophils (%) (Auto) 1.7 0.0-7.0 % Basophils (%) (Auto) 0.3 0.0-2.0 % Neutrophils # (Auto) 6.7 1.6-8.6 10 ^3/uL Lymphocytes # (Auto) 0.9 0.4-5.4 10 ^3/uL Monocytes # (Auto) 0.4 0-1.3 10 ^3/uL Eosinophils # (Auto) 0.1 0-0.8 10 ^3/uL Basophils # (Auto) 0 0-0.2 10 ^3/uL Nucleated Red Blood Cells 0.0 % Platelet Estimate Decreased Polychromasia Slight Hypochromasia (manual) Moderate Anisocytosis (manual) Moderate Macrocytosis Moderate Prothrombin Time 11.5 9.3-11.8 sec Prothrombin Time INR 1.09 0.9-1.15 Activated Partial Thromboplast Time 25.9 24.5-34.5 SEC Sodium Level 144 136-145 mmol/L Potassium Level 5.1 3.5-5.1 mmol/L Chloride Level 119 H 98-107 mmol/L Carbon Dioxide Level 14 L 20-31 mmol/L Anion Gap 11 5-15 Blood Urea Nitrogen 63 H 9-23 mg/dL Creatinine 3.12 H 0.700-1.30 mg/dL Glomerular Filtration Rate Calc 20 >90 mL/min BUN/Creatinine Ratio 20.2 H 10.0-20.0 Serum Glucose 250 H 74-106 mg/dL Hemoglobin A1c < 4.0 <5.7 % A1C Calcium Level 8.9 8.7-10.4 mg/dL Total Bilirubin 0.5 0.2-1.0 mg/dL Aspartate Amino Transferase (AST) 80 H 13-40 U/L Alanine Aminotransferase (ALT) 20 7-40 U/L Alkaline Phosphatase 103 46-116 U/L B-Type Natriuretic Peptide 125.53 0-100 pg/mL Total Protein 6.3 5.7-8.2 g/dL Albumin 3.8 3.2-4.8 g/dL Assessment Acute kidney injury superimposed Chronic Kidney Disease secondary hemodynamic mediated GI bleeding Anemia due to blood loss Hypertension Diabetes mellitus type 2 Chronic diastolic heart failure Metabolic acidosis Hyperkalemia BPH with LUTS Recommendations Closely monitor fluid and electrolytes Avoid nephrotoxic medications Chavez catheter Strict I&Os Check urine electrolytes and protein excretion Check kidney ultrasound Hold losartan IVF half NS with 50 mEq sodium bicarb at 100 cc/hour Packed red blood cell transfusion p.r.n. GI consult We will continue to follow Patient seen and examined by myself. I discussed my plan of care with the patient through a phone Witness agricultural extension officer and the primary nurse at the bedside I would like to thank for the consult, will follow Plan discussed with: Patient LINDA BACON MD May 20, 2024 11:18
[2024-05-20 12:03] LABS: Basophils # (auto) 0 10 ^3/uL (0-0.2); Basophils % (auto) 0.2 % (0.0-2.0); Eosinophils # (auto) 0.1 10 ^3/uL (0-0.8); Eosinophils % (auto) 2.6 % (0.0-7.0); Hematocrit 27.3 % (41.0-53.0); Hemoglobin 8.8 g/dL (13.5-17.5); Lymphocytes # (auto) 0.8 10 ^3/uL (0.4-5.4); Mean Corpuscular Hgb Conc. 32.3 g/dL (32.0-36.0); Mean Corpuscular Volume 92.8 fL (80.0-100.0); Monocytes # (auto) 0.3 10 ^3/uL (0-1.3); Monocytes % (auto) 6.6 % (0.0-12.0); Neutrophils # (auto) 3.4 10 ^3/uL (1.6-8.6); Neutrophils % (auto) 72.6 % (37.0-80.0); Nucleated Red Blood Cells % 0.1 %; Platelet Count (auto) 98 10^3/uL (140-450); Red Blood Cells 2.94 10^6/uL (4.5-5.90); White Blood Cell 4.6 10^3/uL (4.4-10.8)
[2024-05-20 12:17] LABS: Potassium 4.9 mmol/L (3.5-5.1); Sodium 137 mmol/L (136-145)
[2024-05-20 12:18] LABS: Anion Gap 8 (5-15)
[2024-05-20 12:23] LABS: BUN/Creatinine Ratio 10.5 (10.0-20.0)
[2024-05-20 12:35] LABS: Magnesium 1.9 mg/dL (1.6-2.6)
[2024-05-20 12:37] LABS: Phosphorus 3.7 mg/dL (2.4-5.1)
[2024-05-20 12:38] LABS: Blood Urea Nitrogen 25 mg/dL (9-23); Calcium 8.5 mg/dL (8.7-10.4); Carbon Dioxide 19 mmol/L (20-31); Chloride 110 mmol/L (98-107); Glucose 265 mg/dL (74-106)
--- NOTE | 2024-05-20 12:42 | DVH ---
RENAL ULTRASOUND CLINICAL HISTORY: arias TECHNIQUE: Multiple ultrasound images of the kidneys and bladder were obtained. COMPARISON: CT abdomen and pelvis 02/26/2024 FINDINGS: The right kidney measures 9.1 cm in length. The left kidney measures 9.5 cm. There is a 3 mm calculus in the midpole of the right kidney. There is no sonographic evidence of left nephrolithiasis. There is no hydronephrosis. Prostate gland is enlarged with calculated prostate volume of 99 cc. Bladder grossly appears within n ormal limits with prevoid volume measuring 494 cc. IMPRESSION: 1. 3 mm nonobstructive right midpole renal calculus. 2. Prostatomegaly. HS:Y
--- NOTE | 2024-05-20 18:22 | DVHPN2 ---
Progress Note - Dictate Date Seen: May 20, 2024 Medical Necessity Reason Pt with a Central, PICC or Fol: No Subjective Patient had a bowel movement today, minimal bleeding His hemoglobin is stable at 8.8 He denies any abdominal pain Appreciate nephrology input, renal function is improving Appreciate oncology consult, history of a benign liver mass however there was concern regarding rising serum alpha fetoprotein vital signs Vital Sign Date Time Temp Pulse Resp B/P (MAP) Pulse Ox O2 Delivery O2 Flow Rate FiO2 05/20/24 16:32 97.7 60 16 167/61 (96) 99 97.7 05/20/24 08:00 Room Air* 0 21 Total Intake and Output 05/19/24 05/19/24 05/20/24 15:00 23:00 07:00 Intake Total 500 ml 500 ml 200 ml Output Total 801 ml 550 ml Balance 500 ml -301 ml -350 ml medications Current Medications Medications Dose Ordered Sig/Harlan Route Start Time Stop Time Status Last Admin Dose Admin Ondansetron HCl 4 mg Q4HP PRN IV 05/16/24 13:00 Morphine Sulfate 2 mg Q4HPRN PRN IV 05/16/24 13:00 Diagnostic Test (Pha) 1 strip Q6HR 05/16/24 18:00 05/20/24 17:47 1 STRIP Insulin Human Regular Q6HR SC 05/16/24 18:00 05/20/24 17:51 6 UNITS Dextrose 50 ml UD PRN IV 05/16/24 13:00 Levothyroxine Sodium 25 mcg QAM@0600 PO 05/17/24 06:00 05/20/24 05:40 25 MCG Atorvastatin Calcium 40 mg HS PO 05/16/24 22:00 05/19/24 21:51 40 MG Patient Own Medication 25 mg DAILY PO 05/17/24 10:00 Octreotide Acetate 500 mcg/ Sodium Chloride 100 ml @ 10 mls/hr Q10H IV 05/16/24 23:15 05/20/24 17:41 10 MLS/HR Hydralazine HCl 10 mg Q6HP PRN IV 05/17/24 17:30 05/19/24 17:42 10 MG Pantoprazole Sodium 40 mg DAILY@0600 PO 05/18/24 06:00 05/20/24 05:40 40 MG Sucralfate 1 gm BID@0600,2200 PO 05/18/24 06:00 05/20/24 05:40 1 GM Sodium Bicarbonate 50 ml/ Sodium Chloride 1,050 ml @ 100 mls/hr [id number] IV 05/20/24 11:15 05/20/24 11:15 100 MLS/HR objective General: NAD, AAOX3; mild pallor Chest: lung buenrostro clear to auscultation Heart: RRR, no murmur Abdomen: non-distended, no tenderness to palpation, +BS Extremities without clubbing cyanosis or edema Neuro he is alert oriented x3 with no focal deficit laboratory and microbiology Laboratory Tests 05/20/24 11:20 Test 05/20/24 11:20 Range/Units Serum Glucose 265 #H 74-106 mg/dL Problems(with codes): (1) Elevated serum alpha-fetoprotein level (2) Hepatitis B (3) Liver mass (4) Multifocal pneumonia (5) CHF (congestive heart failure) (6) Anemia (7) Acute renal failure (8) Severe anemia (9) GI bleed Prognosis Plan Patient appears to have clinically stabilized and improved I will start him on a bowel prep tonight and tentatively plan a colonoscopy on 05/21/2024 Check repeat serum alpha fetoprotein in a.m. Monitor labs Supportive care Plan discussed with: Patient, Other (Nurse) CC Plasma Assessment Blood Product Administration S: [id number] VASHTI GARZA MD May 20, 2024 18:22
[2024-05-20] MEDS: GOLYTELY 4L KIT PO ONE (20:56)
[2024-05-21] VITALS (9 sets, daily range): BP systolic 133–167; BP diastolic 38–54; PULSE 59–82; RESP 13–20; TEMP 98–98.7; O2SAT 95–99
[2024-05-21] MEDS: GOLYTELY 4L KIT PO ONE (05:29)
[2024-05-21] MEDS: MAGNESIUM CITRATE SOLUTION 300 ML BTL PO ONE (05:56)
[2024-05-21 08:01] LABS: Basophils # (auto) 0 10 ^3/uL (0-0.2); Lymphocytes # (auto) 1.1 10 ^3/uL (0.4-5.4); Nucleated Red Blood Cells % 0.1 %; Red Blood Cells 2.74 10^6/uL (4.5-5.90)
[2024-05-21 08:03] LABS: Basophils % (auto) 0.4 % (0.0-2.0); Eosinophils # (auto) 0.2 10 ^3/uL (0-0.8); Eosinophils % (auto) 3.3 % (0.0-7.0); Hematocrit 25.3 % (41.0-53.0); Hemoglobin 8.5 g/dL (13.5-17.5); Lymphocytes % (auto) 23.3 % (10.0-50.0); Mean Corpuscular Hemoglobin 30.9 pg (28.0-32.0); Mean Corpuscular Hgb Conc. 33.4 g/dL (32.0-36.0); Mean Corpuscular Volume 92.4 fL (80.0-100.0); Monocytes # (auto) 0.4 10 ^3/uL (0-1.3); Monocytes % (auto) 7.7 % (0.0-12.0); Neutrophils # (auto) 3.1 10 ^3/uL (1.6-8.6); Neutrophils % (auto) 65.3 % (37.0-80.0); Red Cell Distribution Width 19.5 % (11.8-14.3); White Blood Cell 4.7 10^3/uL (4.4-10.8)
[2024-05-21 08:17] LABS: Platelet Count (auto) 94 10^3/uL (140-450)
[2024-05-21 11:27] LABS: Basophils # (auto) 0 10 ^3/uL (0-0.2); Basophils % (auto) 0.3 % (0.0-2.0); Eosinophils # (auto) 0.2 10 ^3/uL (0-0.8); Hematocrit 29.7 % (41.0-53.0); Hemoglobin 9.5 g/dL (13.5-17.5); Lymphocytes # (auto) 1.2 10 ^3/uL (0.4-5.4); Lymphocytes % (auto) 17.7 % (10.0-50.0); Mean Corpuscular Hemoglobin 30.7 pg (28.0-32.0); Mean Corpuscular Hgb Conc. 31.9 g/dL (32.0-36.0); Monocytes # (auto) 0.4 10 ^3/uL (0-1.3); Monocytes % (auto) 6.6 % (0.0-12.0); Neutrophils # (auto) 4.7 10 ^3/uL (1.6-8.6); Neutrophils % (auto) 72.4 % (37.0-80.0); Nucleated Red Blood Cells % 0.1 %; Platelet Count (auto) 112 10^3/uL (140-450); Red Blood Cells 3.09 10^6/uL (4.5-5.90); White Blood Cell 6.5 10^3/uL (4.4-10.8)
[2024-05-21 11:30] LABS: Anion Gap 11 (5-15); Potassium 4.6 mmol/L (3.5-5.1); Sodium 137 mmol/L (136-145)
[2024-05-21 11:36] LABS: Carbon Dioxide 14 mmol/L (20-31); Chloride 112 mmol/L (98-107)
[2024-05-21 11:37] LABS: BUN/Creatinine Ratio 8.7 (10.0-20.0); Blood Urea Nitrogen 22 mg/dL (9-23)
[2024-05-21 11:38] LABS: Glucose 164 mg/dL (74-106)
--- NOTE | 2024-05-21 12:19 | DVHPN2 ---
Progress Note Date Seen: May 21, 2024 Medical Necessity Reason Pt with a Central, PICC or Fol: No Subjective Patient reports: No new complaints Other Systems: Patient seen and examined by myself on follow-up today Objective vital signs Vital Sign Date Time Temp Pulse Resp B/P (MAP) Pulse Ox O2 Delivery O2 Flow Rate FiO2 05/21/24 09:20 166/44 05/21/24 08:44 98.6 63 20 98 98.6 05/21/24 08:00 Room Air* 0 21 Total Intake and Output 05/20/24 05/20/24 05/21/24 15:00 23:00 07:00 Intake Total 450 ml 1450 ml 1950 ml Output Total 900 ml 1450 ml Balance 450 ml 550 ml 500 ml medications Current Medications Medications Dose Ordered Sig/Harlan Route Start Time Stop Time Status Last Admin Dose Admin Ondansetron HCl 4 mg Q4HP PRN IV 05/16/24 13:00 Morphine Sulfate 2 mg Q4HPRN PRN IV 05/16/24 13:00 Diagnostic Test (Pha) 1 strip Q6HR 05/16/24 18:00 05/21/24 11:43 1 STRIP Insulin Human Regular Q6HR SC 05/16/24 18:00 05/20/24 17:51 6 UNITS Dextrose 50 ml UD PRN IV 05/16/24 13:00 Levothyroxine Sodium 25 mcg QAM@0600 PO 05/17/24 06:00 05/21/24 05:28 25 MCG Atorvastatin Calcium 40 mg HS PO 05/16/24 22:00 05/20/24 21:10 40 MG Patient Own Medication 25 mg DAILY PO 05/17/24 10:00 Octreotide Acetate 500 mcg/ Sodium Chloride 100 ml @ 10 mls/hr Q10H IV 05/16/24 23:15 05/21/24 10:36 10 MLS/HR Hydralazine HCl 10 mg Q6HP PRN IV 05/17/24 17:30 05/21/24 09:20 10 MG Pantoprazole Sodium 40 mg DAILY@0600 PO 05/18/24 06:00 05/21/24 05:28 40 MG Sucralfate 1 gm BID@0600,2200 PO 05/18/24 06:00 05/21/24 05:28 1 GM Sodium Bicarbonate 50 ml/ Sodium Chloride 1,050 ml @ 100 mls/hr [id number] IV 05/20/24 11:15 05/21/24 10:13 100 MLS/HR Examination: LUNGS:Normal, CVS:Normal, MSK:Normal laboratory and microbiology Laboratory Tests 05/21/24 11:00 Test 05/21/24 11:00 Range/Units Serum Glucose 164 #H 74-106 mg/dL Problem List/Assessment/Plan Problem List/Assessment/Plan Acute kidney injury superimposed Chronic Kidney Disease secondary hemodynamic mediated GI bleeding Anemia due to blood loss Hypertension Diabetes mellitus type 2 Chronic diastolic heart failure Metabolic acidosis Hyperkalemia Nonobstructing right kidney stone BPH with LUTS Recommendations Kidney function slightly improving Increased urine output Chavez catheter Strict I&Os Check urine electrolytes and protein excretion kidney ultrasound reported nonobstructing small right kidney stone and enlarged prostate Hold losartan IVF half NS with 50 mEq sodium bicarb at 100 cc/hour Packed red blood cell transfusion p.r.n. GI consult We will continue to follow up Plan discussed with: Patient My Orders My Orders Orders - LINDA BACON MD Procedure Category Date Status Time Communication Order ORDERS 05/21/24 Transmitted 10:58 Basic Metabolic Panel LAB 05/22/24 Verified 05:00 Basic Metabolic Panel LAB 05/23/24 Verified 05:00 Basic Metabolic Panel LAB 05/24/24 Verified 05:00 CC Plasma Assessment Blood Product Administration S: [id number] LINDA BACON MD May 21, 2024 12:19
[2024-05-21] MEDS ORDERED: SODIUM CHLORIDE LOCK 10 ML ONE (13:04)
[2024-05-21] MEDS: MIDAZOLAM HCL 5 MG/ML-1ML VIAL ONE (13:17)
[2024-05-21] MEDS: fentaNYL CITRATE 100 MCG/2 ML VL ONE (13:17)
[2024-05-21] MEDS: diphenhdrAMINE HCL 50 MG/1 ML VL ONE (13:17)
--- NOTE | 2024-05-21 13:39 | DVHOP2 ---
Operative Report DATE OF OPERATION: 05/21/24 PROCEDURE: Colonoscopy with cold biopsy polypectomy. PREOPERATIVE INDICATION: The patient is a 73 -year-old male undergoing colonoscopy for evaluation of rectal bleeding and abnormal finding GI tract imaging POSTOPERATIVE DIAGNOSES: 1.. There were two 1-2 mm benign-appearing proximal ascending colon polyps that were seen and removed completely via cold biopsy forceps with minimal oozing at biopsy sites 2. 2+ internal hemorrhoids with hypertrophied anal papilla 3. Otherwise completely normal colonoscopy examination up to the cecum and terminal ileum PROCEDURE PERFORMED BY: Vashti Martin M.D. SCOPE: Olympus videocolonoscope. ASA CLASS: 3. PREOPERATIVE MEDICATIONS: Versed 2 mg, Fentanyl 50 mcg, Benadryl 50 mg PROCEDURE IN DETAIL: After obtaining an informed consent, the patient was placed on left lateral decubitus position. He was then sedated with the above medications. A rectal examination was performed that was normal. The colonoscope was then passed through the anus into the rectosigmoid and through the descending, transverse, and ascending colon up to the cecum with visualization of the appendiceal orifice, base of the cecum and the ileocecal valve. The colonoscope was then withdrawn. The distal 3-5 cm of the terminal ileum were normal. In the proximal ascending colon there were two 1-2 mm benign-appearing polyps These were removed completely via cold biopsy forceps. No other polyps or masses were seen. There was no clear-cut diverticular disease or colitis. There were no masses or any active GI bleeding noted On retroflexion and straight on view the patient had one to 2+ internal hemorrhoids with hypertrophied anal papilla The hemorrhoids may have been the source of the lower GI bleed which has now resolved. The patient tolerated the procedure well without difficulty. WITHDRAWAL TIME: 8 minutes QUALITY OF THE PREP: Keiser Bowel Prep score: 9. COMPLICATIONS : None SPECIMENS: Ascending colon polyps x2 DISPOSITION: Stable Transfer to floor PLAN: 1. Repeat colonoscopy base on biopsy result in 3-5 years 2. Resume renal diet 3. Patient's repeat serum alpha fetoprotein is noted to be rising greater than 500, arrange CT-guided biopsy of liver mass as recommended by Oncology VASHTI MARTIN MD May 21, 2024 13:39
[2024-05-21 13:54] LABS: Urine Bacteria FEW /hpf (None Seen); Urine Blood Negative /uL (Negative); Urine Clarity Turbid (Clear); Urine Color Yellow (Yellow); Urine Hyaline Cast MANY /lpf (0 - 2); Urine Mucus FEW (None Seen); Urine Protein, UAD 1+ (Negative); Urine Specific Gravity 1.017 (1.001-1.035); Urine Urobilinogen Normal (Negative); Urine WBC 4 /hpf (0 - 3)
[2024-05-21] MEDS ORDERED: LIDOCAINE 2%HCL (LOCAL ANESTH.) INJ 10ml MDV ONE (14:46)
[2024-05-21] MEDS ORDERED: fentaNYL CITRATE 100 MCG/2 ML VL IV ONE (15:00)
[2024-05-21] MEDS ORDERED: MIDAZOLAM HCL 2MG/2ML 2ml VIAL (1mg/ml) IV ONE (15:00)
[2024-05-21] MEDS ORDERED: MIDAZOLAM HCL 2MG/2ML 2ml VIAL (1mg/ml) ONE (15:09)
[2024-05-21] MEDS ORDERED: fentaNYL CITRATE 100 MCG/2 ML VL ONE (15:10)
[2024-05-21] MEDS ORDERED: GELATIN 1 SPONGE SIZE 50 TOP ONE (15:19)
--- NOTE | 2024-05-21 16:19 | DVH ---
US US GUIDANCE FOR NEEDLE PLACEME, HISTORY: LIVER MASS BX PROCEDURE: Informed consent was obtained. The patient was placed supine on the CT scanner, and limite d US was performed of the liver. IV sedation was administered. The skin over the area of interest was prepped with chlorhexidine which was allowed to dry and draped in the usual sterile fashion. Time ou t was performed. 1% local lidocaine was administered. With intermittent US guidance, Temno 17 gauge o uter coaxial guiding needle was advanced into the heterogeneous mass. Multiple biopsies were obtained using Temno 18 gauge inner core biopsy needle. The specimens were placed in formalin and sent to [facility] for analysis. The needle was withdrawn , and the visceral tract embolized with gelfoam pledget s. 10 minutes of compression was held for hemostasis. Post procedural images were obtained. No immedi ate complication was identified. DLP = 479 mGy-cm. SEDATION: Dr. Baldev Smith was personally responsible for the administration of moderate sedation during the procedure performed, including the use of an independent trained observer who had no other duties during the procedure. The drugs utilized were IV fentanyl and versed (see nursing log for details). The total time of supervision by the attending physician was approximately 30 minutes. FINDINGS: Large heterogenous liver mass. Intra-procedural images demonstrate biopsy needle within the targeted lesion. Post procedural images do not demonstrate any significant hemorrhage. IMPRESSION: US/ CT guided liver mass biopsy. Pathology results pending. Bed rest for 4 hours total.
--- NOTE | 2024-05-21 16:32 | DVHPN2 ---
Subjective Patient denies any symptoms at this time. Reviewed: Care Plan, H&P, Labs, Medications, Previous Orders, Radiology Changes from previous H/P or p: No Changes General: Per HPI Eyes: No Pain, No Vision change, No Conjunctivae inflammation, No Eyelid inflammation, No Other, No Redness ENT: No Ear pain, No Ear discharge, No Nose pain, No Nose discharge, No Nose congestion, No Mouth pain, No Mouth swelling, No Throat pain, No Throat swelling, No Other Cardiovascular: No Chest Pain, No Palpitations, No Orthopnea, No Paroxysmal Noc. Dyspnea, No Edema, No Lt Headedness, No Other Respiratory: No Cough, No Dry, No Shortness of breath, No SOB with excertion, No Wheezing, No Hemoptysis, No Pleuritic Pain, No Sputum, No Other Gastrointestinal: Nausea, Vomiting; No Abdominal Pain, No Diarrhea, No Constipation, No Melena; Hematochezia; No Other Genitourinary: No Dysuria, No Frequency, No Incontinence, No Hematuria, No Retention, No Other Musculoskeletal: No other, No neck pain, No shoulder pain, No arm pain, No back pain, No hand pain, No leg pain, No foot pain Skin: No Rash, No Lesions, No Jaundice, No Bruising, No Other Objective Vitals Vital Signs Date Time Temp Pulse Resp B/P (MAP) Pulse Ox O2 Delivery O2 Flow Rate FiO2 05/21/24 14:10 63 15 135/53 (80) 98 05/21/24 13:40 98.1 98.1 05/21/24 13:40 Room Air 0 98 Intake/Output Intake and Output 05/21/24 07:00 Intake Total 3850 ml Output Total 2350 ml Balance 1500 ml Intake Oral 2800 ml IV Total 1050 ml Output Urine Total 2350 ml # Bowel Movements 3 General Appearance: Alert, Oriented X3, Cooperative, No acute distress HEENT: Atraumatic, PERRLA, EOMI, Mucous membr. moist/pink Neck: Supple Lungs: Clear to auscultation, Normal air movement Cardiovascular: Regular rate, Normal S1, Normal S2, No murmurs, Gallops, Rubs Abdomen: Normal bowel sounds, Soft, No tenderness, No hepatospenomegaly Neuro: Cranial nerves 3-12 NL Skin: Other (Ecchymosis and petechiae to upper extremities) Psych/Mental Status: Mental status NL Medications Current Medications Medications Dose Ordered Sig/Harlan Route Start Time Stop Time Status Last Admin Dose Admin Ondansetron HCl 4 mg Q4HP PRN IV 05/16/24 13:00 Morphine Sulfate 2 mg Q4HPRN PRN IV 05/16/24 13:00 Diagnostic Test (Pha) 1 strip Q6HR 05/16/24 18:00 05/21/24 11:43 1 STRIP Insulin Human Regular Q6HR SC 05/16/24 18:00 05/20/24 17:51 6 UNITS Dextrose 50 ml UD PRN IV 05/16/24 13:00 Levothyroxine Sodium 25 mcg QAM@0600 PO 05/17/24 06:00 05/21/24 05:28 25 MCG Atorvastatin Calcium 40 mg HS PO 05/16/24 22:00 05/20/24 21:10 40 MG Patient Own Medication 25 mg DAILY PO 05/17/24 10:00 Octreotide Acetate 500 mcg/ Sodium Chloride 100 ml @ 10 mls/hr Q10H IV 05/16/24 23:15 05/21/24 10:36 10 MLS/HR Hydralazine HCl 10 mg Q6HP PRN IV 05/17/24 17:30 05/21/24 09:20 10 MG Pantoprazole Sodium 40 mg DAILY@0600 PO 05/18/24 06:00 05/21/24 05:28 40 MG Sucralfate 1 gm BID@0600,2200 PO 05/18/24 06:00 05/21/24 05:28 1 GM Sodium Bicarbonate 50 ml/ Sodium Chloride 1,050 ml @ 100 mls/hr [id number] IV 05/20/24 11:15 05/21/24 10:13 100 MLS/HR Laboratory Results Laboratory Tests 05/21/24 11:00 Chemistry Test 05/21/24 11:00 Calcium Level 9.0 mg/dL (8.7-10.4) Urinalysis Test 05/16/24 18:32 05/20/24 12:40 Urine Sperm Present /hpf (None Seen) Urine Color Yellow (Yellow) Urine Clarity Turbid (Clear) H Urine pH 5.0 (5.0-9.0) Urine Specific [place] 1.017 (1.001-1.035) Urine Protein 1+ (Negative) H Urine Ketones Negative (Negative) Urine Blood Negative /uL (Negative) Urine Nitrite Negative (Negative) Urine Bilirubin Negative (Negative) Urine Urobilinogen Normal mg/dL (Negative) Urine Leukocyte Esterase Negative /uL (Negative) Urine RBC 1 /hpf (0 - 3) Urine WBC 4 /hpf (0 - 3) Urine Squamous Epithelial Cells None seen /hpf (<5) Urine Bacteria Few /hpf (None Seen) H Urine Hyaline Casts Many /lpf (0 - 2) Urine Mucus Few (None Seen) Urine Glucose Normal mg/dL (Normal) Labs and/or images reviewed: Labs reviewed by me, Image(s) reviewed by me Assessment/Plan Assessment/Plan Impression: -rectal bleeding -liver mass, rule out CA -obesity -chronic kidney disease stage IIIB -internal hemorrhoids -Acute GI bleed Anemia of acute blood loss Diabetes type 2 uncontrolled Hypothyroidism Cholelithiasis History of hepatitis B, currently on tenofovir 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 Plan: -patient was status post colonoscopy today. Patient also status post liver biopsy. -repeat labs in a.m. -regular insulin sliding scale -thyroid supplementation -re-evaluate for discharge in a.m. if patient was labs are stable. Follow up with discharge Clinic in one week to obtain biopsy results Total time spent with patient discussing and formulating plan of care: 35 minutes. This medical document was created using an electronic medical record system with [employer] dictation system. Although this document has been carefully reviewed, there may still be some phonetic and typographical errors. These areas are purely typographical due to imperfections of the software programs, and do not reflect any compromise in the patient's medical care. Plan discussed with: Patient, Other (RN) My Orders Orders - CLAUDIO MACARIO NP Procedure Category Date Status Time Us Guidance For US 05/21/24 Resulted Needle Placeme 14:47 Date of Service: May 21, 2024 Billing Provider: CLAUDIO MACARIO NP Common Visit Codes: [id number] INP/OBS CARE(HIGH) CLAUDIO MACARIO NP May 21, 2024 16:32
[2024-05-22] VITALS (7 sets, daily range): BP systolic 147–166; BP diastolic 33–53; PULSE 58–83; RESP 17–20; TEMP 98.4–99.1; O2SAT 95–100
[2024-05-22 07:21] LABS: Alanine Aminotransferase 23 U/L (7-40); Albumin 3.8 g/dL (3.2-4.8); Alkaline Phosphatase 84 U/L (46-116); Anion Gap 8 (5-15); BUN/Creatinine Ratio 10.5 (10.0-20.0); Calcium 8.9 mg/dL (8.7-10.4); Carbon Dioxide 20 mmol/L (20-31); Glucose 79 mg/dL (74-106); Potassium 4.5 mmol/L (3.5-5.1); Sodium 141 mmol/L (136-145)
[2024-05-22 07:22] LABS: Bilirubin, Total 1.2 mg/dL (0.2-1.0); Total Protein 6.3 g/dL (5.7-8.2)
[2024-05-22 07:24] LABS: Aspartate Aminotransferase 79 U/L (13-40); Blood Urea Nitrogen 27 mg/dL (9-23); Chloride 113 mmol/L (98-107)
[2024-05-22 07:25] LABS: Hematocrit 25.7 % (41.0-53.0); Hemoglobin 8.5 g/dL (13.5-17.5)
[2024-05-22 09:08] LABS: Hepatitis B Surface Antigen Positive (Negative)
[2024-05-22 09:25] LABS: Hepatitis C Antibody Negative (Negative)
--- NOTE | 2024-05-22 15:17 | DVHDS2 ---
Discharge Summary Date of Admission May 16, 2024 at 12:47 Date of Discharge: May 22, 2024 Admitting Diagnosis Rectal bleeding Labs/Diagnostic Data: Laboratory Results Test 05/22/24 11:33 05/22/24 06:17 05/21/24 11:00 05/21/24 07:14 POC Glucose 241 mg/dl (70-106) Hemoglobin 8.5 g/dL (13.5-17.5) Hematocrit 25.7 % (41.0-53.0) Sodium Level 141 mmol/L (136-145) Potassium Level 4.5 mmol/L (3.5-5.1) Chloride Level 113 mmol/L (98-107) Carbon Dioxide Level 20 mmol/L (20-31) Anion Gap 8 (5-15) Blood Urea Nitrogen 27 mg/dL (9-23) Creatinine 2.58 mg/dL (0.700-1.30) Glomerular Filtration Rate Calc 26 mL/min (>90) BUN/Creatinine Ratio 10.5 (10.0-20.0) Serum Glucose 79 mg/dL (74-106) Calcium Level 8.9 mg/dL (8.7-10.4) Total Bilirubin 1.2 mg/dL (0.2-1.0) Aspartate Amino Transferase (AST) 79 U/L (13-40) Alanine Aminotransferase (ALT) 23 U/L (7-40) Alkaline Phosphatase 84 U/L (46-116) Total Protein 6.3 g/dL (5.7-8.2) Albumin 3.8 g/dL (3.2-4.8) White Blood Count 6.5 10^3/uL (4.4-10.8) Red Blood Count 3.09 10^6/uL (4.5-5.90) Mean Corpuscular Volume 96.0 fL (80.0-100.0) Mean Corpuscular Hemoglobin 30.7 pg (28.0-32.0) Mean Corpuscular Hemoglobin Concent 31.9 g/dL (32.0-36.0) Red Cell Distribution Width 21.0 % (11.8-14.3) Platelet Count 112 10^3/uL (140-450) Mean Platelet Volume 7.9 fL (6.9-10.8) Neutrophils (%) (Auto) 72.4 % (37.0-80.0) Lymphocytes (%) (Auto) 17.7 % (10.0-50.0) Monocytes (%) (Auto) 6.6 % (0.0-12.0) Eosinophils (%) (Auto) 3.0 % (0.0-7.0) Basophils (%) (Auto) 0.3 % (0.0-2.0) Neutrophils # (Auto) 4.7 10 ^3/uL (1.6-8.6) Lymphocytes # (Auto) 1.2 10 ^3/uL (0.4-5.4) Monocytes # (Auto) 0.4 10 ^3/uL (0-1.3) Eosinophils # (Auto) 0.2 10 ^3/uL (0-0.8) Basophils # (Auto) 0 10 ^3/uL (0-0.2) Nucleated Red Blood Cells 0.1 % Lactate Dehydrogenase 234 U/L (120-246) Test 05/20/24 14:43 05/20/24 12:40 05/20/24 11:20 05/19/24 05:45 Hepatitis B Surface Antigen Positive (Negative) Hepatitis C Antibody Negative (Negative) Urine Color Yellow (Yellow) Urine Clarity Turbid (Clear) Urine pH 5.0 (5.0-9.0) Urine Specific [place] 1.017 (1.001-1.035) Urine Protein 1+ (Negative) Urine Ketones Negative (Negative) Urine Blood Negative /uL (Negative) Urine Nitrite Negative (Negative) Urine Bilirubin Negative (Negative) Urine Urobilinogen Normal mg/dL (Negative) Urine Leukocyte Esterase Negative /uL (Negative) Urine RBC 1 /hpf (0 - 3) Urine WBC 4 /hpf (0 - 3) Urine Squamous Epithelial Cells None seen /hpf (<5) Urine Bacteria Few /hpf (None Seen) Urine Hyaline Casts Many /lpf (0 - 2) Urine Mucus Few (None Seen) Urine Glucose Normal mg/dL (Normal) Phosphorus Level 3.7 mg/dL (2.4-5.1) Magnesium Level 1.9 mg/dL (1.6-2.6) Vitamin D 25-Hydroxy 27.6 ng/mL (30.0-100) Parathyroid Hormone (Intact) 156.9 pg/mL (18.4-80.1) Iron Level 56 ug/dL (65-175) Total Iron Binding Capacity 192 ug/dL (250-425) Percent Iron Saturation 29.2 % (20-55) Tumor Marker Alpha Fetoprotein 580.0 ng/mL (0.0-8.4) Vitamin B12 Level 547 pg/mL (211-911) Folic Acid 19.76 ng/mL (>5.38) Test 05/18/24 05:36 05/16/24 18:32 05/16/24 13:21 05/16/24 09:38 Carcinoembryonic Antigen 2.46 ng/mL (<=5.0) Urine Sperm Present /hpf (None Seen) Troponin I High Sensitivity < 3 ng/L (</=54) Thyroid Stimulating Hormone (TSH) 2.26 uIU/mL (0.55-4.78) Platelet Estimate Decreased Polychromasia Slight Hypochromasia (manual) Moderate Anisocytosis (manual) Moderate Macrocytosis Moderate Prothrombin Time 11.5 sec (9.3-11.8) Prothrombin Time INR 1.09 (0.9-1.15) Activated Partial Thromboplast Time 25.9 SEC (24.5-34.5) Hemoglobin A1c < 4.0 % A1C (<5.7) B-Type Natriuretic Peptide 125.53 pg/mL (0-100) Other Laboratory Tests 05/22/24 06:17 05/21/24 11:00 Brief Hx & Hospital Course: History of Present Illness Dillan Geiger is a 73 old male with past medical history of hypertension, hyperlipidemia, diabetes, CHF, anemia, blood transfusions, CVA, liver disease, hepatitis, thyroid disease, and cholelithiasis who presents to the ED today for rectal bleeding, nausea, and vomiting x1 day. She reports that he was having a bowel movement and he had bright red blood with the stool. Patient reports that 3 months ago he had a blood transfusion at [facility] as well for low blood count. Patient states that he sees his primary once every 3 months. He states that he is compliant with all his medications. Per EMS notes that patient's heart rate was 60 on the field the drop to 30. Patient denies chest pain, shortness of breath, fever, chills, lightheadedness, and dizziness. Course of hospitalization: GI consultation was obtained. Patient underwent colonoscopy with findings of two colonic polyps, with minimal oozing. Biopsies were taken. Patient also was noted to have internal hemorrhoids. CT scan did reveal liver mass. Mass was noted to be larger than previous scans. Alpha fetoprotein was elevated at 580. Patient underwent liver mass biopsy yesterday. The patient's H&H has been stable. The patient was tolerating oral intake without any difficulties. Using chemical radiation technician, all findings were discussed with the patient was well as plan of care including follow up for who discussion of biopsy results which should be back in approximately one week. Patient will follow up with Nephrology, Hematology, as well as Gastroenterology as an outpatient. Patient will be continued on iron supplementation, Flomax for noted BPH on CT scan, as well as Protonix 40 mg p.o. daily. He was agreeable with discharge plan. All questions answered. Physical examination General: Alert and Oriented x3. No acute distress. Well-nourished. Eyes: EOMI. Anicteric. HENT: Moist mucous membranes. Lungs: Clear to auscultation bilaterally. No accessory muscle use. Cardiovascular: Regular rate and rhythm. No murmur. No JVD. Abdomen: Soft, non-tender and non-distended. No palpable masses. Extremities: No edema. Non-tender. Skin: No rashes or lesions. Warm. Neurologic: No focal neurological deficits. CN II-XII grossly intact, but not individually tested. Psychiatric: Cooperative. Appropriate mood and affect. Total time spent with patient discussing and formulating plan of care: 35 minutes. This medical document was created using an electronic medical record system with [employer] dictation system. Although this document has been carefully reviewed, there may still be some phonetic and typographical errors. These areas are purely typographical due to imperfections of the software programs, and do not reflect any compromise in the patient's medical care. Consults/Reason for consult Nephrology: Acute kidney injury Gastroenterology: Rectal bleeding Oncology: Liver mass with elevated alpha fetoprotein Operations or Procedures 05/21/24: Colonoscopy, liver mass biopsy Condition at Discharge: Guarded Final Diagnosis/Problems List Rectal bleeding Secondary Diagnosis: -liver mass, rule out CA -obesity -chronic kidney disease stage IIIB -internal hemorrhoids -Acute GI bleed Anemia of acute blood loss Diabetes type 2 uncontrolled Hypothyroidism Cholelithiasis History of hepatitis B, currently on tenofovir 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 Probable V MN Discharge Disposition: Home Discharge Instruct/Medications Diet: Consistent carbohydrate, Cardiac 2g Na,low cholest Activity: No Restrictions, As Tolerated Follow Up/Referral: Follow up with PCP in 1-2 weeks Follow up with Dr. Jeevan Nunn in 1-2 weeks Follow up with discharge Clinic in one week Follow up with Dr. Radha Martin in 2-3 weeks Follow up with Nephrology, Dr. Goldman in 2-3 weeks Medications: Protonix 40 mg p.o. daily Iron sulfate 325 mg p.o. b.i.d. Tamsulosin 0.4 mg p.o. daily 36 Discharge Statement: "Patient was advised to return to the ER or call 911 if any headaches, dizziness, shortness of breath, chest pain, abdominal pain, bleeding, fevers, or worsening of medical condition. Patient was counseled about treatment plan, medications, possible side effects, patientverbalized understanding. All questions were answered to the best of my ability. This discharge took greater then 30 minutes in planning, reviewing documentation, counseling the patient, and discussing with other team members." ASSESSMENT ASSESSMENT Assessment Rectal bleeding Date of Service: May 22, 2024 Billing Provider: CLAUDIO MACARIO NP Common Visit Codes: 33695-EHA/OBS DISCH DAY >30min CLAUDIO MACARIO NP May 22, 2024 15:17
[2024-05-22] MEDS ORDERED: TAMS-35 PO (15:20)
[2024-05-22] MEDS ORDERED: FERR-7 PO (15:20)
[2024-05-22] MEDS ORDERED: PANT40TA2 PO (15:20)
--- NOTE | 2024-05-22 16:34 | DVHPN2 ---
Progress Note Date Seen: May 22, 2024 Medical Necessity Reason Pt with a Central, PICC or Fol: No Subjective Patient reports: No new complaints Other Systems: Patient seen and examined by myself today in follow-up Objective vital signs Vital Sign Date Time Temp Pulse Resp B/P (MAP) Pulse Ox O2 Delivery O2 Flow Rate FiO2 05/22/24 12:25 98.4 58 20 159/35 (76) 99 98.4 05/22/24 08:00 Nasal Cannula* 2 28 Total Intake and Output 05/21/24 05/21/24 05/22/24 15:00 23:00 07:00 Intake Total 100 ml 450 ml 450 ml Balance 100 ml 450 ml 450 ml medications Current Medications Medications Dose Ordered Sig/Harlan Route Start Time Stop Time Status Last Admin Dose Admin Ondansetron HCl 4 mg Q4HP PRN IV 05/16/24 13:00 Morphine Sulfate 2 mg Q4HPRN PRN IV 05/16/24 13:00 Diagnostic Test (Pha) 1 strip Q6HR 05/16/24 18:00 05/22/24 11:35 1 STRIP Insulin Human Regular Q6HR SC 05/16/24 18:00 05/22/24 11:38 4 UNITS Dextrose 50 ml UD PRN IV 05/16/24 13:00 Levothyroxine Sodium 25 mcg QAM@0600 PO 05/17/24 06:00 05/22/24 05:47 25 MCG Atorvastatin Calcium 40 mg HS PO 05/16/24 22:00 05/21/24 21:38 40 MG Patient Own Medication 25 mg DAILY PO 05/17/24 10:00 Octreotide Acetate 500 mcg/ Sodium Chloride 100 ml @ 10 mls/hr Q10H IV 05/16/24 23:15 05/22/24 15:34 10 MLS/HR Hydralazine HCl 10 mg Q6HP PRN IV 05/17/24 17:30 05/21/24 09:20 10 MG Pantoprazole Sodium 40 mg DAILY@0600 PO 05/18/24 06:00 05/22/24 05:47 40 MG Sucralfate 1 gm BID@0600,2200 PO 05/18/24 06:00 05/22/24 05:47 1 GM Sodium Bicarbonate 50 ml/ Sodium Chloride 1,050 ml @ 100 mls/hr [id number] IV 05/20/24 11:15 05/22/24 15:34 100 MLS/HR Examination: LUNGS:Normal, CVS:Normal, MSK:Normal laboratory and microbiology Laboratory Tests 05/22/24 06:17 05/21/24 11:00 Test 05/22/24 06:17 Range/Units Serum Glucose 79 74-106 mg/dL Problem List/Assessment/Plan Problem List/Assessment/Plan Acute kidney injury superimposed Chronic Kidney Disease secondary hemodynamic mediated GI bleeding Anemia due to blood loss Hepatitis-B surface antigen positive Hypertension Diabetes mellitus type 2 Chronic diastolic heart failure Metabolic acidosis Hyperkalemia Nonobstructing right kidney stone BPH with LUTS Recommendations Kidney function slightly improving Increased urine output Chavez catheter Strict I&Os Check urine electrolytes and protein excretion kidney ultrasound reported nonobstructing small right kidney stone and enlarged prostate Hold losartan IVF half NS with 50 mEq sodium bicarb at 100 cc/hour Packed red blood cell transfusion p.r.n. GI consult We will continue to follow up Plan discussed with: Patient Dietary Evaluation Review Comments: 1) Consider a Renal Specific K2,low phos,2gmNa,80gPro diet 2) Continue current plan of care Expected Outcomes/Goals: F/U in 3-5 days CC Plasma Assessment Blood Product Administration S: [id number] LINDA BACON MD May 22, 2024 16:34
== END 2024-05-22 18:48 | disposition home or self-care (01) | DRG 393 ==
LOC: EDUNIT# 08:44 → EDBD 08:44 → ER 08:44 → OVERFLOW 12:47 → TELE 13:10 → TELE-WESTW 22:40
PROVIDERS: ATTEND Nurse Practitioner Acute Care
PROC: 30233N1 Transfusion of Nonautologous Red Blood Cells into Peripheral Vein, Percutaneous Approach (ICD-10-PCS; principal; 2024-05-16)
PROC: 30233N1 Transfusion of Nonautologous Red Blood Cells into Peripheral Vein, Percutaneous Approach (ICD-10-PCS; 2024-05-20)
PROC: 0DBK8ZX Excision of Ascending Colon, Via Natural or Artificial Opening Endoscopic, Diagnostic (ICD-10-PCS; 2024-05-21)
PROC: 0FB03ZX Excision of Liver, Percutaneous Approach, Diagnostic (ICD-10-PCS; 2024-05-21)
DX: K63.5 Polyp of colon (principal); N17.0 Acute kidney failure with tubular necrosis; D62 Acute posthemorrhagic anemia; N18.4 Chronic kidney disease, stage 4 (severe); I13.0 Hypertensive heart and chronic kidney disease with heart failure and stage 1 through stage 4 chronic kidney disease, or unspecified chronic kidney disease; I50.32 Chronic diastolic (congestive) heart failure; E87.20 Acidosis, unspecified; E11.22 Type 2 diabetes mellitus with diabetic chronic kidney disease; K80.20 Calculus of gallbladder without cholecystitis without obstruction; E03.9 Hypothyroidism, unspecified; E78.5 Hyperlipidemia, unspecified; E87.5 Hyperkalemia; N40.1 Benign prostatic hyperplasia with lower urinary tract symptoms; N20.0 Calculus of kidney; K64.8 Other hemorrhoids; E66.9 Obesity, unspecified; R16.0 Hepatomegaly, not elsewhere classified; Z86.73 Personal history of transient ischemic attack (TIA), and cerebral infarction without residual deficits; Z86.19 Personal history of other infectious and parasitic diseases; Z68.30 Body mass index [BMI] 30.0-30.9, adult
CPT/HCPCS: 10005; 36415; 45380; 74176; 76775; 76942; 77012; 80048; 80053; 81001; 82105; 82306; 82378; 82607; 82746; 82962; 83036; 83540; 83550; 83615; 83735; 83880; 83970; 84100; 84443; 84484; 85014; 85018; 85025; 85610; 85730; 86803; 86850; 86880; 86900; 86901; 86920; 87340; 99291; G0378; J1815; J2003; J2250; J2405; J2470

== ENCOUNTER 2024-05-31 04:36 | Inpatient (IN) | payer OTHER ==
[~2024-05-31] VITALS: Ht 172.7 cm; Wt 75.0 kg
[2024-05-31] VITALS (22 sets, daily range): BP systolic 100–152; BP diastolic 27–95; PULSE 72–115; RESP 14–23; TEMP 97.8–98.9; O2SAT 100
[~2024-05-31 04:36] MED LIST changes: +FERR-7 PO; -LOSA-533 PO; +PANT40TA2 PO; +TAMS-35 PO
--- NOTE | 2024-05-31 04:56 | ED.PDOC ---
GI ASSESSMENT HPI Comments 73-year-old male who came to ER via EMS for hematemesis. Per EMS, patient was picked up at home, where in patient had an episode of hematemesis, bright red with clots, about 200 cc in amount. Denies any chest pains, shortness of breath, or abdominal pain. There is a language barrier involved, and history was obtained from the family that the EMS crew were able to interview. 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 Probable V MN Colonoscopy done then showed presence of 2 colonic polyps with minimal oozing. Also showed internal hemorrhoids. Chief Complaint: Hematemesis Time Seen by MD: 04:55 Reviewed Notes: Security Shift Manager Notes Allergies: Coded Allergies: NO KNOWN ALLERGIES (Unverified , 06/08/23) Home Meds Active Scripts Pantoprazole Sodium Sesquihydr (Protonix) 40 Mg Tab, 40 MG PO DAILY for 30 Days, #30 TAB Prov:CLAUDIO MACARIO NP 05/22/24 Ferrous Sulfate (Iron) 325 Mg Tab, 325 MG PO BID for 30 Days, #60 TAB Prov:CLAUDIO MACARIO NP 05/22/24 Tamsulosin Hcl (Flomax) 0.4 Mg Cap, 1 CAP PO DAILY for 30 Days, #30 CAP 11 Refills Prov:CLAUDIO MACARIO RETAIL PHARMACY MANAGER 05/22/24 Pantoprazole Sodium Sesquihydr (Pantoprazole Sodium) 40 Mg Tab, 40 MG PO DAILY@0600 for 30 Days, #30 TAB 3 Refills Prov:DORA MCFARLAND DO 02/28/24 Reported Medications Omeprazole (Omeprazole Dr) 20 Mg Cap, 20 MG PO DAILY 02/27/24 Insulin Lispro (Admelog) 100 Unit/Ml Inj, 10 UNITS SC UD 02/27/24 Insulin Glargine (Basaglar Kwikpen) 100 Unit/Ml Inj, 30 UNITS SC BEFORE DINNER 02/27/24 Levothyroxine Sodium (Levothyroxine Sodium) 25 Mcg Tab, 25 MCG PO QAM ON EMPTY STOMACH 02/27/24 Tenofovir Alafenamide Fumarate (Vemlidy) 25 Mg Tab, 25 MG PO DAILY 02/27/24 Atorvastatin Calcium (ATORVASTATIN CALCIUM) 40 Mg Tab, 1 TAB PO DAILY, #30 TAB 5 Refills 06/10/23 Semaglutide (Ozempic) 2 Mg/3 Ml Inj, 2 MG SC, INJ 06/10/23 Information Source: Emergency Med Personnel Mode of Arrival: EMS Timing: Minutes Duration: Since onset Prehospital treatment: None Vomitus: Bright Red Bood Recent Hx of: GI Bleed Associated sign and symptoms: Hematemesis Past Medical History PAST MEDICAL HISTORY: CHF, CVA, DM, Gallstones, HTN, Liver, Thyroid Past Medical History (Other): GI bleed, internal hemorrhoids Surgical History: Denies all surgeries Surgical History (Other): Colonoscopy Family History Family History: Reviewed,noncontributory to illness Social History Smoker: Non-Smoker Alcohol: Denies ETOH Use Drugs: Denies Drug Use Lives In: Home Constitutional: denies: chills, diaphoresis, fatigue, fever, malaise, sweats, weakness, others EENTM: denies: blurred vision, double vision, ear bleeding, ear discharge, ear drainage, ear pain, ear ringing, eye pain, eye redness, hearing loss, mouth pain, mouth swelling, nasal discharge, nose bleeding, nose congestion, nose pain, photophobia, tearing, throat pain, throat swelling, voice changes, others Respiratory: denies: cough, hemoptysis, orthopnea, SOB at rest, shortness of breath, SOB with excertion, stridor, wheezing, others Cardiovascular: denies: chest pain, dizzy spells, diaphoresis, Dyspnea on exertion, edema, irregular heart beat, left arm pain, lightheadedness, palpitations, PND, syncope, others Gastrointestinal: reports: hematemesis; denies: abdomen distended, abdominal pain, blood streaked bowels, constipated, diarrhea, dysphagia, difficulty swallowing, melena, nausea, poor appetite, poor fluid intake, rectal bleeding, rectal pain, vomiting, others Genitourinary: denies: burning, dysuria, flank pain, frequency, hematuria, incontinence, penile discharge, penile sore, pain, testicle pain, testicle swelling, urgency, others Neurological: denies: dizziness, fainting, headache, left sided numbness, left sided weakness, numbness, paresthesia, pre-existing deficit, right sided numbness, right sided weakness, seizure, speech problems, tingling, tremors, weakness, others Musculoskeletal: denies: back pain, gout, joint pain, joint swelling, muscle pain, muscle stiffness, neck pain, others Integumetry: denies: bruises, change in color, change in hair/nails, dryness, laceration, lesions, lumps, rash, wounds, others Allergic/Immunocompromised: denies: Difficulty Healing, Frequent Infections, Hives, Itching, others Hematologic/Lymphatic: denies: anemia, blood clots, easy bleeding, easy bruising, swollen glands, others Endocrine: denies: excessive hunger, excessive sweating, excessive thirst, excessive urination, flushing, intolerance to cold, intolerance to heat, unexplained weight gain, unexplained weight loss, others Psychiatric: denies: anxiety, bipolar disorder, depression, hopeless, panic disorder, schizophrenia, sleepless, suicidal, others Physical Exam General Appearance: No Apparent Distress, Normal HEENT: Normal ENT Inspection, Pharynx Normal, TMs Normal Neck: Full Range of Motion, Non-Tender, Normal, Normal Inspection Respiratory: Chest Non-Tender, Lungs Clear, No Accessory Muscle Use, No Respiratory Distress, Normal Breath Sounds Cardiovascular: No Edema, No JVD, No Murmur, No Gallop, Normal Peripheral Pul ses, Regular Rate/Rhythm Breast Exam: Deferred Gastrointestinal: No Organomegaly, Non Tender, No Pulsatile Mass, Normal Bowel Sounds, Soft Genitalia: Deferred Pelvic: Deferred Rectal: Deferred Extremities: No calf tenderness, Normal capillary refill, Normal inspection, Normal range of motion, Non-tender, No pedal edema Musculoskeletal : Apperance: Normal Neurologic: Alert, feeder/folder II-XII nml as Tested, No Motor Deficits, Normal Affect, Normal Mood, No Sensory Deficits Cerebellar Function: Normal Reflexes: Normal Skin: Dry, Normal Color, Warm Lymphatic: No Adenopathy Was a procedure done? Was a procedure done?: No GI differential Dx Differential Diagnosis: Diverticular disease, Gastritis/PUD, Gastroenteritis, GI hemorrhage, Ischemic Bowel, UTI, Dehydration, Anemia X-Ray, Labs, Meds, VS Vital Signs Date Time Temp Pulse Resp B/P (MAP) Pulse Ox O2 Delivery O2 Flow Rate FiO2 05/31/24 05:56 93 23 100 Room Air* 0 21 05/31/24 05:56 98.2 93 23 135/35 (68) 100 98.2 05/31/24 04:55 98.2 100 20 140/44 (76) 100 05/31/24 04:44 91 Lab Test 05/31/24 05:28 Range/Units White Blood Count 7.3 4.4-10.8 10^3/uL Red Blood Count 1.04 L 4.5-5.90 10^6/uL Hemoglobin 3.2 *L 13.5-17.5 g/dL Hematocrit 10.7 L 41.0-53.0 % Mean Corpuscular Volume 103.1 H 80.0-100.0 fL Mean Corpuscular Hemoglobin 30.9 28.0-32.0 pg Mean Corpuscular Hemoglobin Concent 30.0 L 32.0-36.0 g/dL Red Cell Distribution Width 22.4 H 11.8-14.3 % Platelet Count 148 140-450 10^3/uL Mean Platelet Volume 9.3 6.9-10.8 fL Neutrophils (%) (Auto) 79.9 37.0-80.0 % Lymphocytes (%) (Auto) 13.6 10.0-50.0 % Monocytes (%) (Auto) 5.6 0.0-12.0 % Eosinophils (%) (Auto) 0.4 0.0-7.0 % Basophils (%) (Auto) 0.5 0.0-2.0 % Neutrophils # (Auto) 5.9 1.6-8.6 10 ^3/uL Lymphocytes # (Auto) 1.0 0.4-5.4 10 ^3/uL Monocytes # (Auto) 0.4 0-1.3 10 ^3/uL Eosinophils # (Auto) 0 0-0.8 10 ^3/uL Basophils # (Auto) 0 0-0.2 10 ^3/uL Nucleated Red Blood Cells 0.1 % Platelet Estimate Adequate Anisocytosis (manual) Slight Microcytosis Slight Macrocytosis Slight Prothrombin Time 13.0 H 9.3-11.8 sec Prothrombin Time INR 1.25 H 0.9-1.15 Activated Partial Thromboplast Time 23.4 L 24.5-34.5 SEC Sodium Level 140 136-145 mmol/L Potassium Level 7.2 *H 3.5-5.1 mmol/L Chloride Level 115 H 98-107 mmol/L Carbon Dioxide Level 15 L 20-31 mmol/L Anion Gap 10 5-15 Blood Urea Nitrogen 53 H 9-23 mg/dL Creatinine 2.84 H 0.700-1.30 mg/dL Glomerular Filtration Rate Calc 23 >90 mL/min BUN/Creatinine Ratio 18.7 10.0-20.0 Serum Glucose 274 H 74-106 mg/dL Calcium Level 7.6 L 8.7-10.4 mg/dL Total Bilirubin 0.8 0.2-1.0 mg/dL Aspartate Amino Transferase (AST) 58 H 13-40 U/L Alanine Aminotransferase (ALT) 42 H 7-40 U/L Alkaline Phosphatase 221 H 46-116 U/L Total Protein 4.9 L 5.7-8.2 g/dL Albumin 3.1 L 3.2-4.8 g/dL Lipase 134 H 12-53 U/L Current Medications Medications (Trade) Dose Ordered Sig/Harlan Route Start Time Stop Time Status Last Admin Ondansetron HCl (Zofran) 4 mg ONCE ONCE IV 05/31/24 05:00 05/31/24 05:01 DC 05/31/24 05:12 Sodium Chloride 1,000 ml @ 1,000 mls/hr Q1H ONCE IVB 05/31/24 05:00 05/31/24 05:59 DC 05/31/24 05:12 Pantoprazole Sodium (Protonix) 40 mg ONCE ONCE IV 05/31/24 05:00 05/31/24 05:01 DC 05/31/24 05:12 Time of 1ST Reevaluation: 04:52 Reevaluation 1ST: Unchanged Time of 2ND Reevaluation: 17:55 (Hypovolemic shockAuthorized and Performed by: Meredith Shields MDTotal critical care time: Approximately 48 minutesDue to a high probability of clinically significant, life threatening deterioration, the patient required my highest level of preparedness to intervene emergently and I personally spent this critical care time directly and personally managing the patient. This critical care time included obtaining a history; examining the patient; pulse oximetry; ordering and review of studies; arranging urgent treatment with development of a management plan; evaluation of patient's response to treatment; frequent reassessment; and, discussions with other providers.This critical care time was performed to assess and manage the high probability of imminent, life-threatening deterioration that could result in multi-organ failure. It was exclusive of separately billable procedures and treating other patients and teaching time.Please see my other sections and the rest of the note for further information on patient assessment and treatment.) Reevaluation 2ND: Worsened Reevaluation 3RD: Worsened Patient Education/Counseling: Diagnosis, Treatment Family Education/Counseling: No Family Present Departure 1 Departure Time of Disposition: 17:54 (Patient with worsening GI bleed hypotensive in shock. I place a central line. Patient getting blood and we will be admitted to the hospital.) Impression: Primary Impression: GI bleed Qualified Codes: K92.1 - Melena Additional Impressions: Symptomatic anemia Shock Disposition: ADMITTED INPATIENT Admit to: ICU Condition: Critical Critical Care Note Critical Care Time?: Yes (35 min-critical care time only) Critical care comment: Total critical care time: Approximately 36 minutes Due to a high probability of clinically significant, life threatening deterioration, the patient required my highest level of preparedness to intervene emergently and I personally spent this critical care time directly and personally managing the patient. This critical care time included obtaining a history; examining the patient; pulse oximetry; ordering and review of studies; arranging urgent treatment with development of a management plan; evaluation of patient's response to treatment; frequent reassessment; and, discussions with other providers. This critical care time was performed to assess and manage the high probability of imminent, life-threatening deterioration that could result in multi-organ failure. It was exclusive of separately billable procedures and treating other patients. Stability Stability form required: No Heart Score Heart Score: Heart Score Response (Comments) Value History N/A 0 EKG N/A 0 Age N/A 0 Risk Factors N/A 0 Troponin N/A 0 Total 0 I personally scribed for CAROLYN WALKER MD ([email or web address]) on 05/31/24 at 04:56. Electronically submitted by Toño Holguin ([facility]). I personally scribed for CAROLYN WALKER MD ([email or web address]) on 05/31/24 at 04:59. Electronically submitted by Toño Holguin ([email or web address]). CAROLYN WALKER MD May 31, 2024 04:56 MEREDITH SHIELDS MD May 31, 2024 17:56
[2024-05-31] MEDS: SODIUM CHLORIDE 0.9% 1,000 ML IVB ONE (05:12)
[2024-05-31] MEDS: PANTOPRAZOLE 40 MG/10 ML VIAL INJ IV ONE (05:12)
[2024-05-31] MEDS: ONDANSETRON HCL 4 MG/2 ML VIAL IV ONE (05:12)
[2024-05-31 06:09] LABS: Anion Gap 10 (5-15); BUN/Creatinine Ratio 18.7 (10.0-20.0); Sodium 140 mmol/L (136-145)
[2024-05-31 06:10] LABS: Bilirubin, Total 0.8 mg/dL (0.2-1.0)
[2024-05-31 06:42] LABS: Basophils # (auto) 0 10 ^3/uL (0-0.2); Eosinophils # (auto) 0 10 ^3/uL (0-0.8); Eosinophils % (auto) 0.4 % (0.0-7.0); Mean Corpuscular Volume 103.1 fL (80.0-100.0); Monocytes # (auto) 0.4 10 ^3/uL (0-1.3)
[2024-05-31 06:44] LABS: Basophils % (auto) 0.5 % (0.0-2.0); Hematocrit 10.7 % (41.0-53.0); Lymphocytes % (auto) 13.6 % (10.0-50.0); Mean Corpuscular Hemoglobin 30.9 pg (28.0-32.0); Monocytes % (auto) 5.6 % (0.0-12.0); Neutrophils # (auto) 5.9 10 ^3/uL (1.6-8.6); Neutrophils % (auto) 79.9 % (37.0-80.0); Nucleated Red Blood Cells % 0.1 %; Platelet Count (auto) 148 10^3/uL (140-450); Red Blood Cells 1.04 10^6/uL (4.5-5.90); White Blood Cell 7.3 10^3/uL (4.4-10.8)
[2024-05-31] MEDS ORDERED: ACETAMINOPHEN 325 MG TAB PO PRN (06:45)
[2024-05-31] MEDS ORDERED: MORPHINE SULFATE INJ 2 MG/ml SYRG IV PRN (06:45)
[2024-05-31] MEDS ORDERED: HYDROcodone-ACET 5/325MG TAB PO PRN (06:45)
[2024-05-31] MEDS ORDERED: ONDANSETRON HCL 4 MG/2 ML VIAL IV PRN (06:45)
--- NOTE | 2024-05-31 06:46 | ECG ---
[facility] Test Date: 2024-05-31 Test Time: 04:44:31 Pat Name: ЕКАТЕРИНА RANGEL Department: ER Room: [address] [place] [address] Gender: M Senior It Business Analyst: SANCHEZ : 1950 Requested By: CAROLYN WALKER Order Number: [id number] Reading MD: Jonel Maddox Measurements Intervals Sharon Rate: 91 P: 74 UT: 180 QRS: 68 QRSD: 95 T: 68 QT: 350 QTc: 431 Interpretive Statements Sinus rhythm Low voltage, extremity leads Baseline wander in lead(s) V1 Electronically Signed On 05-31-2024 14:49:50 PST by Jonel Maddox Please click the below link to view image of tracing.
[2024-05-31 06:54] LABS: INR 1.25 (0.9-1.15); Partial Thromboplastin Time 23.4 SEC (24.5-34.5)
--- NOTE | 2024-05-31 06:55 | DVHHP2 ---
History of Present Illness Reason for Visit: Coughing up blood, vomiting blood, dark red blood in stool History of Present Illness Dillan Geiger is a 73 old male with past medical history of hypertension, hyperlipidemia, diabetes, CHF, anemia, blood transfusions, CVA, liver disease, hepatitis, thyroid disease, and cholelithiasis who presents to the ED today for coughing up blood x2 and hematemesis along with blood in his stool x2 days. Per son Hector patient has been having uncontrollable bowel movements the last 2 days and son noted that there was blood in the stool. Patient has done states that patient had quit smoking quite some time ago, quit drinking as well, denies drug use, denies fever, chills, chest pain, shortness of breath, lightheadedness, and dizziness. 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 LIAISON: CVA Heme/Onc: Anemia NOS Hepatobiliary: Cholelithiasis, Hep A/B/C Endocrine: Diabetes, Hypothyroidism Past Surgical History: None, Other Past Surgical History Colonoscopy Family History: None Smoke: Quit ALCOHOL: none Drugs: None Lives: with Family Domestic Violence: Neg Review of Systems Constitutional: No: Fever, Chills, Sweats, Weakness, Malaise, Other Eyes: No: Pain, Vision change, Conjunctivae inflammation, Eyelid inflammation, Other, Redness ENT: No: Ear pain, Ear discharge, Nose pain, Nose discharge, Nose congestion, Mouth pain, Mouth swelling, Throat pain, Throat swelling, Other Respiratory: Cough, Hemoptysis; No: Dry, Shortness of breath, SOB with excertion, Wheezing, Pleuritic Pain, Sputum, Wheezing, Other Cardiovascular: No: Chest Pain, Palpitations, Orthopnea, Paroxysmal Noc. Dyspnea, Edema, Lt Headedness, Other Gastrointestinal: Vomiting, Abdominal Pain, Other (hematemesis); No: Nausea, Diarrhea, Constipation, Melena, Hematochezia Genitourinary: No Dysuria, No Frequency, No Incontinence, No Hematuria, No Retention, No Other Musculoskeletal: No: other, neck pain, shoulder pain, arm pain, back pain, hand pain, leg pain, foot pain Skin: No: Rash, Lesions, Jaundice, Bruising, Other Neurological: No: Weakness, Numbness, Incoordination, Change in speech, Confusion, Seizures, Other Allergies: Coded Allergies: NO KNOWN ALLERGIES (Unverified , 06/08/23) Medications Current Medications Medications Dose Ordered Sig/Harlan Route Start Time Stop Time Status Last Admin Dose Admin Sodium Chloride 1,000 ml @ 70 mls/hr [id number] IV 05/31/24 06:45 Acetaminophen/ Hydrocodone Bitart 1 tab Q4HP PRN PO 05/31/24 06:45 Ondansetron HCl 4 mg Q4HP PRN IV 05/31/24 06:45 Acetaminophen 650 mg Q6HP PRN PO 05/31/24 06:45 Morphine Sulfate 2 mg Q4HPRN PRN IV 05/31/24 06:45 Pantoprazole Sodium 40 mg BID IV 05/31/24 22:00 Exam Vital Signs Vital Signs Date Time Temp Pulse Resp B/P (MAP) Pulse Ox O2 Delivery O2 Flow Rate FiO2 05/31/24 04:55 98.2 100 20 140/44 (76) 100 General Appearance: Alert, Oriented X3, Cooperative, No acute distress HEENT: Atraumatic, PERRLA, EOMI, Mucous membr. moist/pink Respiratory: Clear to auscultation, Normal air movement Cardiovascular: Regular rate, Normal S1, Normal S2, No murmurs Abdominal: Soft Extremities: No clubbing, No cyanosis, No edema, Normal pulses, No tenderness/swelling Skin: No rashes, No breakdown, No significant lesion Neuro: Normal speech, Normal tone, Sensation intact Psych/Mental Status: Mental status NL, Mood NL Labs/Xrays Labs Test 05/31/24 05:28 Range/Units Exam: CT CT AB PEL WO CON-NO ORAL OR IV History: gib Comparison Study: CT scan of the abdomen pelvis performed on 05/16/2024 Technique: Multidetector spiral CT of the abdomen and pelvis was performed from lung bases to pubic symphysis. Imaging was performed without intravenous contrast. Coronal and sagittal multiplanar reformats were obtained from the axial data set by the technologist. Radiation Dose : 1. Abdomen/Pelvis: CTDIvol 9.3 mGy, DLP 438.5 mGy*cm. Findings: Evaluation of vasculature and solid organs is limited due to lack of intravenous contrast use. Lung Bases: Lung bases are clear. Visualized portions of the heart and pericardium are unremarkable. Liver: The liver is normal in size. Stable 10.5 cm left hepatic mass. Faint dense foci throughout the mass. Gallbladder and Biliary Tree: The gallbladder has gallstones. No intrahepatic or extrahepatic biliary ductal dilatation. Spleen: Unremarkable Pancreas: The pancreas is grossly unremarkable. Adrenal Glands: Unremarkable Kidneys: Kidneys are unremarkable without calculi or hydronephrosis. GI tract: The stomach is grossly normal in appearance. No evidence of small bowel wall thickening or abnormal dilatation to suggest bowel obstruction. There is wall thickening of the rectosigmoid colon. The appendix is not visualized, however no inflammatory changes in the right lower quadrant to suggest acute appendicitis. Peritoneum/mesentery/retroperitoneum. No evidence of free intraperitoneal air. No fluid collection. No evidence of suspicious lymphadenopathy. Abdominal Wall: Soft tissue thickening in the ventral abdominal wall. Vasculature: The visualized abdominal aorta is normal in size and caliber. Evaluation of abdominal and pelvic vessels is limited due to lack of intravenous contrast. Urinary Bladder: Grossly unremarkable for degree of distention. Pelvic Organs: Prostate is enlarged. Seminal vesicles unremarkable. Musculoskeletal: No aggressive focal bony lesions, acute fractures or dislocation. IMPRESSION: 1. Evaluation limited without intravenous contrast. Mild wall thickening of the rectosigmoid colon which may reflect proctocolitis in the appropriate clinical setting. No fluid collection in the abdomen or pelvis. 2. Gallstones. 3. Stable size 10.5 cm left hepatic lobe mass. Few dense foci throughout the mass may be postprocedural or related to hemorrhage. No perihepatic fluid. 4. Prostatomegaly. Assessment/Plan Assessment/Plan Assessment/Plan: Suspected GIB Severe anemia Lactic acidosis IV antibiotics IV fluids transfuse prbcs if Hgb <7.0 FFP - ordered by GI GI cx labs ekg antiemetics am labs ua protonix drip ct a/p Type and screen PT/PTT NS Lipase Echo done on 02/26/24 EF 55% Colonoscopy done on 05/21/2024 Hyperkalemia Insulin alb tx JOHN on CKD4 IVf am labs nephro cx DM HgbA1C ISS and accuchecks Thyroid disease continue home med - levothyroxine Chronic HTN Chronic CHF continue home meds Hepatitis home meds continued - tenofovir monitor labs History of CVA Monitor Mild wall thickening of the rectosigmoid colon which may reflect proctocolitis in the appropriate clinical setting. IV Abx - zosyn Gallstones. follow up outpatient Stable size 10.5 cm left hepatic lobe mass. Few dense foci throughout the mass may be postprocedural or related to hemorrhage. follow up outpatient Prostatomegaly f/u outpatient FEN/PPX IVf NPO hold dvt ppx, patient bleeding PUD ppx - protonix drip Discussed plan of care with patient and nurse Home medications reconciled Admit to tele Plan discussed with: Patient, Son My Orders Orders - MAICOL CARDOZO Procedure Category Date Status Time Ct Ab Pel Wo Con-No CT 05/31/24 Logged Oral Or Iv 06:18 * Gi Dvh Manager Cardiac Cath CONS 05/31/24 Transmitted 06:42 Admit ADMIT 05/31/24 Transmitted 06:42 Allergies MARIN 05/31/24 In Process 06:42 Code Status CODE 05/31/24 Transmitted 06:42 Sodium Chloride 0.9% PHA 05/31/24 In Process 06:45 Hydrocodone-Acet PHA 05/31/24 In Process 5/325mg Tab ([place] 06:45 Ondansetron Hcl PHA 05/31/24 In Process (Zofran) 06:45 Complete Blood Count LAB 06/01/24 Verified 04:00 Comprehensive LAB 06/01/24 Verified Metabolic Panel 04:00 Npo (Nothing By DIET 05/31/24 Transmitted Mouth) Diet Breakfast Acetaminophen Tablet PHA 05/31/24 In Process (Tylenol Tablet) 06:45 Morphine Sulfate PHA 05/31/24 In Process Injection 06:45 Pantoprazole PHA 05/31/24 In Process (Protonix) 22:00 Date of Service: May 31, 2024 Billing Provider: MAICOL CARDOZO Common Visit Codes: 46130-[id number] INP/OBS CARE (HIGH) MAICOL CARDOZO May 31, 2024 06:54
[2024-05-31] MEDS: SODIUM CHLORIDE 0.9% 1,000 ML IV SCH ×2 (07:00→18:36)
[2024-05-31 07:12] LABS: Hemoglobin 3.2 g/dL (13.5-17.5); Red Cell Distribution Width 22.4 % (11.8-14.3)
--- NOTE | 2024-05-31 07:27 | DVH ---
Exam: CT CT AB PEL WO CON-NO ORAL OR IV History: gib Comparison Study: CT scan of the abdomen pelvis performed on 05/16/2024 Technique: Multidetector spiral CT of the abdomen and pelvis was performed from lung bases to pubic s ymphysis. Imaging was performed without intravenous contrast. Coronal and sagittal multiplanar refor mats were obtained from the axial data set by the technologist. Radiation Dose : 1. Abdomen/Pelvis: CTDIvol 9.3 mGy, DLP 438.5 mGy*cm. Findings: Evaluation of vasculature and solid organs is limited due to lack of intravenous contrast use. Lung Bases: Lung bases are clear. Visualized portions of the heart and pericardium are unremarkable. Liver: The liver is normal in size. Stable 10.5 cm left hepatic mass. Faint dense foci throughout th e mass. Gallbladder and Biliary Tree: The gallbladder has gallstones. No intrahepatic or extrahepatic bilia ry ductal dilatation. Spleen: Unremarkable Pancreas: The pancreas is grossly unremarkable. Adrenal Glands: Unremarkable Kidneys: Kidneys are unremarkable without calculi or hydronephrosis. GI tract: The stomach is grossly normal in appearance. No evidence of small bowel wall thickening or abnormal dilatation to suggest bowel obstruction. There is wall thickening of the rectosigmoid colon . The appendix is not visualized, however no inflammatory changes in the right lower quadrant to sug gest acute appendicitis. Peritoneum/mesentery/retroperitoneum. No evidence of free intraperitoneal air. No fluid collection. N o evidence of suspicious lymphadenopathy. Abdominal Wall: Soft tissue thickening in the ventral abdominal wall. Vasculature: The visualized abdominal aorta is normal in size and caliber. Evaluation of abdominal a nd pelvic vessels is limited due to lack of intravenous contrast. Urinary Bladder: Grossly unremarkable for degree of distention. Pelvic Organs: Prostate is enlarged. Seminal vesicles unremarkable. Musculoskeletal: No aggressive focal bony lesions, acute fractures or dislocation. IMPRESSION: 1. Evaluation limited without intravenous contrast. Mild wall thickening of the rectosigmoid colon wh ich may reflect proctocolitis in the appropriate clinical setting. No fluid collection in the abdomen or pelvis. 2. Gallstones. 3. Stable size 10.5 cm left hepatic lobe mass. Few dense foci throughout the mass may be postprocedur al or related to hemorrhage. No perihepatic fluid. 4. Prostatomegaly.
[2024-05-31] MEDS ORDERED: PANTOPRAZOLE 40mg/50ML NS AE 50 ML IV SCH (08:00)
[2024-05-31 08:31] LABS: Alanine Aminotransferase 42 U/L (7-40); Alkaline Phosphatase 221 U/L (46-116); Aspartate Aminotransferase 58 U/L (13-40); Blood Urea Nitrogen 53 mg/dL (9-23); Calcium 7.6 mg/dL (8.7-10.4); Carbon Dioxide 15 mmol/L (20-31); Chloride 115 mmol/L (98-107); Glucose 274 mg/dL (74-106); Potassium 7.2 mmol/L (3.5-5.1); Total Protein 4.9 g/dL (5.7-8.2)
[2024-05-31 08:32] LABS: Albumin 3.1 g/dL (3.2-4.8); Lipase 134 U/L (12-53)
[2024-05-31] MEDS: ALBUTEROL SULF 2.5 MG/0.5ML(0.5%) NEB SOLN NEB ONE (09:15)
[2024-05-31 09:27] LABS: Anisocytosis Slight; Macrocytosis Slight; Platelet Estimate Adequate
[2024-05-31] MEDS: InsuLIN REG 1unit/0.01ml Soln (100units/ml) IV ONE (10:06)
[2024-05-31] MEDS: PANTOPRAZOLE 40mg/50ML NS AE 50 ML IV SCH (11:07)
[2024-05-31] MEDS: PIPERACILLIN-TAZOB 3.375GM 100 ML IV ONE ×2 (11:13→19:31)
[2024-05-31 12:27] LABS: Lactic Acid w/Reflex 9.2 mmol/L (0.4-2.0)
[2024-05-31] MEDS: PIPERACILLIN-TAZOB 3.375GM 100 ML IV SCH (14:00)
[2024-05-31 17:13] LABS: Urine Bacteria FEW /hpf (None Seen); Urine Blood Negative /uL (Negative); Urine Clarity Clear (Clear); Urine Color Light-Yellow (Yellow); Urine Hyaline Cast FEW /lpf (0 - 2); Urine Protein, UAD Negative (Negative); Urine Specific Gravity 1.014 (1.001-1.035); Urine Squamous Epithelial Cell None Seen /hpf (<5); Urine Urobilinogen Normal (Negative); Urine WBC <1 /hpf (0 - 3)
--- NOTE | 2024-05-31 18:24 | DVHPN2 ---
Subjective Update 05/31-patient is hard of hearing, also appears to be confused A&O times 1-2) open not oriented to place but is oriented to person and time). Patient has multiple melena and hematemesis, hyperkalemia, high risk of GI bleed. Patient unable to confirm whether he has any complaints due to confusion. He is also pulling lines and has required Mitten. RBC infusing for severe anemia ABLA Reviewed: H&P Changes from previous H/P or p: No Changes General: Per HPI Objective Vitals Vital Signs Date Time Temp Pulse Resp B/P (MAP) Pulse Ox O2 Delivery O2 Flow Rate FiO2 05/31/24 18:02 98.9 87 15 130/47 98.9 05/31/24 16:00 100 05/31/24 11:47 Room Air* 0 21 Intake/Output Intake and Output 05/31/24 07:00 Intake Total 100 ml Balance 100 ml IV Total 100 ml Exam GEN: Mild distress, A&O times 1-2 HEENT: NC/AT; dry mucous membranes, increased skin turgor CV:: Systolic murmur LUNGS: CTAB, no w/r/c. ABD: Soft, NT/ND, NBS, no masses or organomegaly. EXT: skin Warm, well perfused. no rashes. No clubbing, cyanosis, or edema. NEURO: Ambulating with no limitations. No focal deficits. Medications Current Medications Medications Dose Ordered Sig/Harlan Route Start Time Stop Time Status Last Admin Dose Admin Sodium Chloride 1,000 ml @ 70 mls/hr [id number] IV 05/31/24 06:45 05/31/24 07:00 70 MLS/HR Acetaminophen/ Hydrocodone Bitart 1 tab Q4HP PRN PO 05/31/24 06:45 Ondansetron HCl 4 mg Q4HP PRN IV 05/31/24 06:45 Acetaminophen 650 mg Q6HP PRN PO 05/31/24 06:45 Morphine Sulfate 2 mg Q4HPRN PRN IV 05/31/24 06:45 Pantoprazole Sodium 50 ml @ 10 mls/hr Q5H IV 05/31/24 08:15 05/31/24 11:07 10 MLS/HR Piperacillin Sod/ Tazobactam Sod 100 ml @ 25 mls/hr Q8HR IV 05/31/24 14:00 Hold Sodium Chloride 1,000 ml @ 100 mls/hr Q10H IV 05/31/24 16:45 Ceftriaxone Sodium 50 ml @ 100 mls/hr DAILY@09 IV 06/01/24 09:00 Laboratory Results Laboratory Tests 05/31/24 05:28 Chemistry Test 05/31/24 05:28 Albumin 3.1 g/dL (3.2-4.8) L Calcium Level 7.6 mg/dL (8.7-10.4) L Total Protein 4.9 g/dL (5.7-8.2) L Coagulation Test 05/31/24 05:28 Prothrombin Time 13.0 sec (9.3-11.8) H Prothrombin Time INR 1.25 (0.9-1.15) H Activated Partial Thromboplast Time 23.4 SEC (24.5-34.5) L Lipid panel Test 05/31/24 05:28 Lipase 134 U/L (12-53) H LFT Test 05/31/24 05:28 Alanine Aminotransferase (ALT) 42 U/L (7-40) H Alkaline Phosphatase 221 U/L (46-116) H Aspartate Amino Transferase (AST) 58 U/L (13-40) H Total Bilirubin 0.8 mg/dL (0.2-1.0) Urinalysis Test 05/31/24 16:46 Urine Color Light-yellow (Yellow) Urine Clarity Clear (Clear) Urine pH 5.0 (5.0-9.0) Urine Specific [place] 1.014 (1.001-1.035) Urine Protein Negative (Negative) Urine Ketones 1+ (Negative) H Urine Blood Negative /uL (Negative) Urine Nitrite Negative (Negative) Urine Bilirubin Negative (Negative) Urine Urobilinogen Normal mg/dL (Negative) Urine Leukocyte Esterase Negative /uL (Negative) Urine RBC <1 /hpf (0 - 3) Urine WBC <1 /hpf (0 - 3) Urine Squamous Epithelial Cells None seen /hpf (<5) Urine Bacteria Few /hpf (None Seen) H Urine Hyaline Casts Few /lpf (0 - 2) Urine Glucose 2+ mg/dL (Normal) H Labs and/or images reviewed: Labs reviewed by me, Image(s) reviewed by me Assessment/Plan Assessment/Plan Update 05/31-patient is hard of hearing, also appears to be confused A&O times 1-2) open not oriented to place but is oriented to person and time). Patient has multiple melena and hematemesis, hyperkalemia, high risk of GI bleed. Patient unable to confirm whether he has any complaints due to confusion. He is also pulling lines and has required Mitten. RBC infusing for severe anemia ABLA # acute upper GI bleed/melena #ABL a - history of recent EGD showing polyps and gastroduodenitis --recent colonoscopy showing 2 polyps, biopsy taken, also 2 internal hemorrhoids,.. -on PPI, hemoglobin low transfusing 3 units- # hyperkalemia given hyperkalemia protocol. Does not qualify for calcium gluconate. We will continue monitoring on tele. Insulin/D50 as needed #diabetes - NPO use q. six H SSI #CHF - continue home meds, keep you volume of with p.r.n. Lasix IV as patient is confused # CVA history #history of liver cirrhosis #thyroid disease history diet NPO DVT prophylaxis-SCDs GI prophylaxis PPI be IV b.i.d. Med tele Full code Plan discussed with: Patient My Orders Orders - JOSE OCASIO MD Procedure Category Date Status Time Administer Blood MARIN 05/31/24 In Process Products 11:07 Date of Service: May 31, 2024 Billing Provider: JOSE OCASIO MD Common Visit Codes: [id number] INP/OBS CARE(HIGH) JOSE OCASIO MD May 31, 2024 18:24
[2024-05-31] MEDS: cefTRIAXone 1GM/50ML D5W 50 ML IV ONE (18:36)
[2024-05-31] MEDS: KETAMINE 50mg/ML 1ml syringe IV ONE (18:54)
[2024-05-31] MEDS: KETAMINE 50mg/ML 10ml Vial 10 ML ONE (18:54)
[2024-05-31] MEDS: SODIUM CHLORIDE 0.9% 1,000 ML IV ONE (20:45)
--- NOTE | 2024-05-31 21:44 | DVHINCON2 ---
Date of service: May 31, 2024 Referring Physician CLAUDIA Smith Reason for Consultation Upper GI bleed and severe anemia History of Present Illness Dillan Geiger is a 73 old male with past medical history of hypertension, hyperlipidemia, diabetes, CHF, anemia, blood transfusions, CVA, liver disease, suspected hepatocellular carcinoma,hepatitis B, thyroid disease, and cholelithiasis who presents to the ED today for coughing up blood x2 and hematemesis along with blood in his stool x2 days. Per son Hector patient has been having uncontrollable bowel movements the last 2 days and son noted that there was blood in the stool. Patient has done states that patient had quit smoking quite some time ago, quit drinking as well, denies drug use, denies fever, chills, chest pain, shortness of breath, lightheadedness, and dizziness. 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 Allergies: Coded Allergies: NO KNOWN ALLERGIES (Unverified , 06/08/23) Home Meds Active Scripts Pantoprazole Sodium Sesquihydr (Protonix) 40 Mg Tab, 40 MG PO DAILY for 30 Days, #30 TAB Prov:CLAUDIO MACARIO DYE HOUSE WORKER 05/22/24 Ferrous Sulfate (Iron) 325 Mg Tab, 325 MG PO BID for 30 Days, #60 TAB Prov:CLAUDIO MACARIO NP 05/22/24 Tamsulosin Hcl (Flomax) 0.4 Mg Cap, 1 CAP PO DAILY for 30 Days, #30 CAP 11 Refills Prov:CLAUDIO MACARIO NP 05/22/24 Pantoprazole Sodium Sesquihydr (Pantoprazole Sodium) 40 Mg Tab, 40 MG PO DAILY@0600 for 30 Days, #30 TAB 3 Refills Prov:DORA MCFARLAND DO 02/28/24 Reported Medications Omeprazole (Omeprazole Dr) 20 Mg Cap, 20 MG PO DAILY 02/27/24 Insulin Lispro (Admelog) 100 Unit/Ml Inj, 10 UNITS SC UD 02/27/24 Insulin Glargine (Basaglar Kwikpen) 100 Unit/Ml Inj, 30 UNITS SC BEFORE DINNER 02/27/24 Levothyroxine Sodium (Levothyroxine Sodium) 25 Mcg Tab, 25 MCG PO QAM ON EMPTY STOMACH 02/27/24 Tenofovir Alafenamide Fumarate (Vemlidy) 25 Mg Tab, 25 MG PO DAILY 02/27/24 Atorvastatin Calcium (ATORVASTATIN CALCIUM) 40 Mg Tab, 1 TAB PO DAILY, #30 TAB 5 Refills 06/10/23 Semaglutide (Ozempic) 2 Mg/3 Ml Inj, 2 MG SC, INJ 06/10/23 Current Medications Current Medications Medications (Trade) Dose Ordered Sig/Harlan Route PRN Reason Start Time Stop Time Status Last Admin Sodium Chloride 1,000 ml @ 70 mls/hr [id number] IV 05/31/24 06:45 05/31/24 21:18 Acetaminophen/ Hydrocodone Bitart ([place]arden 5/325MG Tab) 1 tab Q4HP PRN PO MODERATE PAIN (4-6 PAIN SCALE) 05/31/24 06:45 Ondansetron HCl (Zofran) 4 mg Q4HP PRN IV NAUSEA / VOMITING 05/31/24 06:45 Acetaminophen (Tylenol Tablet) 650 mg Q6HP PRN PO PAIN SCALE 1-3 OR TEMP>100.4 05/31/24 06:45 Morphine Sulfate 2 mg Q4HPRN PRN IV SEVERE PAIN (7-10 PAIN SCALE) 05/31/24 06:45 Pantoprazole Sodium (Protonix) 40 mg BID IV 05/31/24 22:00 05/31/24 08:08 DC Pantoprazole Sodium 50 ml @ 10 mls/hr Q5H IV 05/31/24 08:00 05/31/24 08:54 DC Pantoprazole Sodium 50 ml @ 10 mls/hr Q5H IV 05/31/24 08:15 05/31/24 18:41 Piperacillin Sod/ Tazobactam Sod 100 ml @ 25 mls/hr Q8HR IV 05/31/24 14:00 05/31/24 18:53 DC Sodium Chloride 1,000 ml @ 100 mls/hr Q10H IV 05/31/24 16:45 05/31/24 18:36 Ceftriaxone Sodium 50 ml @ 100 mls/hr DAILY@09 IV 06/01/24 09:00 05/31/24 18:27 DC Piperacillin Sod/ Tazobactam Sod 100 ml @ 25 mls/hr Q8H IV 06/01/24 03:00 Vital Signs Vital Signs Date Time Temp Pulse Resp B/P (MAP) Pulse Ox O2 Delivery O2 Flow Rate FiO2 05/31/24 20:25 98.4 89 18 146/60 98.4 05/31/24 18:00 100 05/31/24 11:47 Room Air* 0 21 Physical Exam GEN: Mild distress, A&O times 1-2 HEENT: NC/AT; dry mucous membranes, increased skin turgor; [id number] pallor CV:: Systolic murmur LUNGS: CTAB, no w/r/c. ABD: Soft, NT/ND, NBS, no masses or organomegaly. EXT: skin Warm, well perfused. no rashes. No clubbing, cyanosis, or edema. NEURO: No focal deficits. Labs/Diagnostic Data Labs Test 05/31/24 16:46 05/31/24 13:09 05/31/24 10:05 05/31/24 05:28 Range/Units Urine Color Light-yellow Yellow Urine Clarity Clear Clear Urine pH 5.0 5.0-9.0 Urine Specific [place] 1.014 1.001-1.035 Urine Protein Negative Negative Urine Ketones 1+ H Negative Urine Blood Negative Negative /uL Urine Nitrite Negative Negative Urine Bilirubin Negative Negative Urine Urobilinogen Normal Negative mg/dL Urine Leukocyte Esterase Negative Negative /uL Urine RBC <1 0 - 3 /hpf Urine WBC <1 0 - 3 /hpf Urine Squamous Epithelial Cells None seen <5 /hpf Urine Bacteria Few H None Seen /hpf Urine Hyaline Casts Few 0 - 2 /lpf Urine Glucose 2+ H Normal mg/dL Lactic Acid Level 9.0 *H 0.4-2.0 mmol/L POC Glucose 224 H 70-106 mg/dl White Blood Count 7.3 4.4-10.8 10^3/uL Red Blood Count 1.04 L 4.5-5.90 10^6/uL Hemoglobin 3.2 *L 13.5-17.5 g/dL Hematocrit 10.7 L 41.0-53.0 % Mean Corpuscular Volume 103.1 H 80.0-100.0 fL Mean Corpuscular Hemoglobin 30.9 28.0-32.0 pg Mean Corpuscular Hemoglobin Concent 30.0 L 32.0-36.0 g/dL Red Cell Distribution Width 22.4 H 11.8-14.3 % Platelet Count 148 140-450 10^3/uL Mean Platelet Volume 9.3 6.9-10.8 fL Neutrophils (%) (Auto) 79.9 37.0-80.0 % Lymphocytes (%) (Auto) 13.6 10.0-50.0 % Monocytes (%) (Auto) 5.6 0.0-12.0 % Eosinophils (%) (Auto) 0.4 0.0-7.0 % Basophils (%) (Auto) 0.5 0.0-2.0 % Neutrophils # (Auto) 5.9 1.6-8.6 10 ^3/uL Lymphocytes # (Auto) 1.0 0.4-5.4 10 ^3/uL Monocytes # (Auto) 0.4 0-1.3 10 ^3/uL Eosinophils # (Auto) 0 0-0.8 10 ^3/uL Basophils # (Auto) 0 0-0.2 10 ^3/uL Nucleated Red Blood Cells 0.1 % Platelet Estimate Adequate Anisocytosis (manual) Slight Microcytosis Slight Macrocytosis Slight Prothrombin Time 13.0 H 9.3-11.8 sec Prothrombin Time INR 1.25 H 0.9-1.15 Activated Partial Thromboplast Time 23.4 L 24.5-34.5 SEC Sodium Level 140 136-145 mmol/L Potassium Level 7.2 *H 3.5-5.1 mmol/L Chloride Level 115 H 98-107 mmol/L Carbon Dioxide Level 15 L 20-31 mmol/L Anion Gap 10 5-15 Blood Urea Nitrogen 53 H 9-23 mg/dL Creatinine 2.84 H 0.700-1.30 mg/dL Glomerular Filtration Rate Calc 23 >90 mL/min BUN/Creatinine Ratio 18.7 10.0-20.0 Serum Glucose 274 H 74-106 mg/dL Calcium Level 7.6 L 8.7-10.4 mg/dL Total Bilirubin 0.8 0.2-1.0 mg/dL Aspartate Amino Transferase (AST) 58 H 13-40 U/L Alanine Aminotransferase (ALT) 42 H 7-40 U/L Alkaline Phosphatase 221 H 46-116 U/L Total Protein 4.9 L 5.7-8.2 g/dL Albumin 3.1 L 3.2-4.8 g/dL Lipase 134 H 12-53 U/L CT SCAN ABD PELVIS IMPRESSION: 1. Evaluation limited without intravenous contrast. Mild wall thickening of the rectosigmoid colon which may reflect proctocolitis in the appropriate clinical setting. No fluid collection in the abdomen or pelvis. 2. Gallstones. 3. Stable size 10.5 cm left hepatic lobe mass. Few dense foci throughout the mass may be postprocedural or related to hemorrhage. No perihepatic fluid. 4. Prostatomegaly. Problems(with codes): (1) Lactic acidosis (2) Acute kidney failure (3) Symptomatic anemia (4) GI bleed (5) Shock (6) Anemia (7) Hepatitis B (8) Liver mass (9) Severe anemia (10) Hyperkalemia (11) Elevated liver enzymes Plan/Recommendation Assessment plan Patient has severe anemia with a hemoglobin of 3.2 He has acute renal failure with severe hyperkalemia and lactic acidosis Transfuse 4 units PRBC and 1 unit FFP IV Protonix drip at 8 milligrams/hour IV antibiotics Correct hyperkalemia Monitor labs, check ammonia Sepsis workup EGD 02/25 showed gastroduodenitis, inflammatory fold and benign polyps Colonoscopy in May 23, 2024 showed 2+ internal external hemorrhoids likely source of rectal bleeding, two benign polyps were seen and removed Possible repeat endoscopy only when the patient is medically stabilized I will follow this patient with you closely Prognosis remains guarded Plan discussed with: Patient, Other (ER Nurse and DYE HOUSE WORKER Sarah) VASHTI GARZA MD May 31, 2024 21:44
[2024-05-31] MEDS ORDERED: PANTOPRAZOLE 40 MG/10 ML VIAL INJ IV SCH (22:00)
[2024-05-31 22:35] LABS: Anion Gap 10 (5-15); Basophils # (auto) 0 10 ^3/uL (0-0.2); Basophils % (auto) 0.3 % (0.0-2.0); Eosinophils # (auto) 0 10 ^3/uL (0-0.8); Eosinophils % (auto) 0.2 % (0.0-7.0); Hematocrit 27.2 % (41.0-53.0); Hemoglobin 8.7 g/dL (13.5-17.5); Lymphocytes # (auto) 0.7 10 ^3/uL (0.4-5.4); Lymphocytes % (auto) 13.1 % (10.0-50.0); Mean Corpuscular Hemoglobin 30.8 pg (28.0-32.0); Mean Corpuscular Volume 96.2 fL (80.0-100.0); Monocytes # (auto) 0.5 10 ^3/uL (0-1.3); Monocytes % (auto) 9.4 % (0.0-12.0); Nucleated Red Blood Cells % 0.2 %; Platelet Count (auto) 78 10^3/uL (140-450); Red Blood Cells 2.83 10^6/uL (4.5-5.90); Red Cell Distribution Width 16.7 % (11.8-14.3); White Blood Cell 5.2 10^3/uL (4.4-10.8)
[2024-05-31 22:41] LABS: Blood Urea Nitrogen 46 mg/dL (9-23); Glucose 381 mg/dL (74-106); Sodium 145 mmol/L (136-145)
[2024-05-31 22:45] LABS: Calcium 8.2 mg/dL (8.7-10.4); Carbon Dioxide 17 mmol/L (20-31); Chloride 118 mmol/L (98-107); Potassium 5.8 mmol/L (3.5-5.1)
[2024-06-01] VITALS (10 sets, daily range): BP systolic 123–142; BP diastolic 54–63; PULSE 65–85; RESP 17–20; TEMP 98–98.8; O2SAT 98–100
[2024-06-01] MEDS ORDERED: DEXTROSE (50%) 50ML SYRG IV PRN (00:30)
[2024-06-01] MEDS: FUROSEMIDE 20 MG/2 ML VIAL IV ONE (00:45)
[2024-06-01] MEDS: SODIUM ZIRCONIUM CYCL 10 GM PAK PO ONE (00:46)
[2024-06-01] MEDS: SODIUM BICARB 8.4% 50Meq/50ml SYR INJ IV ONE (00:46)
[2024-06-01] MEDS: CALCIUM GLUC 1,000mg/50ml-NS 50 ML IV ONE (01:12)
[2024-06-01] MEDS: DEXTROSE (50%) 50ML SYRG IV ONE (01:12)
[2024-06-01] MEDS: InsuLIN REG 1unit/0.01ml Soln (100units/ml) IV ONE ×2 (01:16→08:15)
[2024-06-01] MEDS: PIPERACILLIN-TAZOB 3.375GM 100 ML IV SCH (02:55)
[2024-06-01] MEDS: ALBUTEROL SULF 2.5 MG/0.5ML(0.5%) NEB SOLN NEB ONE (03:45)
[2024-06-01] MEDS: ACCU-CHEK COMFORT CURVE STRIP VI SCH (04:57)
[2024-06-01] MEDS: InsuLIN REG 1unit/0.01ml Soln (100units/ml) SC SCH ×2 (04:59→11:31)
[2024-06-01 07:27] LABS: Basophils # (auto) 0 10 ^3/uL (0-0.2); Basophils % (auto) 0.3 % (0.0-2.0); Eosinophils # (auto) 0 10 ^3/uL (0-0.8); Eosinophils % (auto) 0.8 % (0.0-7.0); Hematocrit 26.9 % (41.0-53.0); Hemoglobin 8.7 g/dL (13.5-17.5); Lymphocytes # (auto) 0.6 10 ^3/uL (0.4-5.4); Mean Corpuscular Hemoglobin 31.6 pg (28.0-32.0); Mean Corpuscular Hgb Conc. 32.3 g/dL (32.0-36.0); Mean Corpuscular Volume 97.7 fL (80.0-100.0); Monocytes # (auto) 0.4 10 ^3/uL (0-1.3); Monocytes % (auto) 6.4 % (0.0-12.0); Neutrophils # (auto) 4.7 10 ^3/uL (1.6-8.6); Neutrophils % (auto) 82.5 % (37.0-80.0); Nucleated Red Blood Cells % 0.3 %; Platelet Count (auto) 95 10^3/uL (140-450); Red Blood Cells 2.75 10^6/uL (4.5-5.90); White Blood Cell 5.7 10^3/uL (4.4-10.8)
[2024-06-01 07:29] LABS: Albumin 3.4 g/dL (3.2-4.8); Anion Gap 14 (5-15); BUN/Creatinine Ratio 12.7 (10.0-20.0); Bilirubin, Total 0.9 mg/dL (0.2-1.0); Calcium 8.8 mg/dL (8.7-10.4); Potassium 4.4 mmol/L (3.5-5.1); Total Protein 5.8 g/dL (5.7-8.2)
[2024-06-01 07:40] LABS: Alanine Aminotransferase 52 U/L (7-40); Alkaline Phosphatase 167 U/L (46-116); Aspartate Aminotransferase 100 U/L (13-40); Blood Urea Nitrogen 39 mg/dL (9-23); Carbon Dioxide 18 mmol/L (20-31); Chloride 115 mmol/L (98-107); Sodium 147 mmol/L (136-145)
[2024-06-01 07:43] LABS: Glucose 430 mg/dL (74-106)
[2024-06-01] MEDS ORDERED: cefTRIAXone 1GM/50ML D5W 50 ML IV SCH (09:00)
[2024-06-01] MEDS: LACTATED RINGER'S 1,000 ML IV ONE (11:35)
[2024-06-01 11:49] LABS: Lactic Acid w/Reflex 3.7 mmol/L (0.4-2.0)
--- NOTE | 2024-06-01 14:18 | DVHPN2 ---
Progress Note - Dictate Date Seen: Jun 01, 2024 Medical Necessity Reason Pt with a Central, PICC or Fol: No Subjective No new complaints Patient received 4 units PRBC and 1 unit of FFP yesterday His hemoglobin is up to 8.7 and stable No active GI bleeding is reported by the nurse today Patient's renal function is improving and he did have lactic acidosis; patient is on IV antibiotics EGD 02/25 showed gastroduodenitis, inflammatory fold and benign polyps Colonoscopy in May 23, 2024 showed 2+ internal external hemorrhoids likely source of rectal bleeding, two benign polyps were seen and removed vital signs Vital Sign Date Time Temp Pulse Resp B/P (MAP) Pulse Ox O2 Delivery O2 Flow Rate FiO2 06/01/24 10:00 100 Room Air* 0 21 06/01/24 09:00 98.0 71 18 123/57 (79) 98.0 Total Intake and Output 05/31/24 05/31/24 06/01/24 15:00 23:00 07:00 Intake Total 3215 ml 2630 ml 100 ml Output Total 0 ml 600 ml Balance 3215 ml 2030 ml 100 ml medications Current Medications Medications Dose Ordered Sig/Harlan Route Start Time Stop Time Status Last Admin Dose Admin Acetaminophen/ Hydrocodone Bitart 1 tab Q4HP PRN PO 05/31/24 06:45 Ondansetron HCl 4 mg Q4HP PRN IV 05/31/24 06:45 Acetaminophen 650 mg Q6HP PRN PO 05/31/24 06:45 Morphine Sulfate 2 mg Q4HPRN PRN IV 05/31/24 06:45 Pantoprazole Sodium 50 ml @ 10 mls/hr Q5H IV 05/31/24 08:15 06/01/24 08:38 10 MLS/HR Sodium Chloride 1,000 ml @ 100 mls/hr Q10H IV 05/31/24 16:45 06/01/24 02:45 100 MLS/HR Piperacillin Sod/ Tazobactam Sod 100 ml @ 25 mls/hr Q8H IV 06/01/24 03:00 06/01/24 11:29 25 MLS/HR Diagnostic Test (Pha) 1 strip IQ4HR 06/01/24 04:00 06/01/24 11:30 1 STRIP Dextrose 50 ml UD PRN IV 06/01/24 00:30 Insulin Human Regular IQ4HR SC 06/01/24 12:00 06/01/24 11:31 8 UNITS objective GEN: No distress, A&O x3 HEENT: mild pallor CV:: Systolic murmur LUNGS: CTAB, no w/r/c. ABD: Soft, NT/ND, NBS, no masses or organomegaly. EXT: skin Warm, well perfused. no rashes. No clubbing, cyanosis, or edema. NEURO: No focal deficits. laboratory and microbiology Laboratory Tests 06/01/24 06:34 Test 06/01/24 06:34 Range/Units Serum Glucose 430 *H 74-106 mg/dL Problems(with codes): (1) Symptomatic anemia (2) Shock (3) GI bleed (4) Lactic acidosis (5) Acute kidney failure (6) Hepatitis B (7) Liver mass (8) Hyperkalemia (9) Elevated liver enzymes Prognosis PLAN Taper off IV Protonix drip Change to Protonix 40 mg IV q.12 hours Clear liquid diet today [; NPO after midnight Tentative plan for a EGD on 06/02/2024 if he is medically stable and hyperkalemia improved Check final pathology results of recent liver biopsy Check repeat labs including serum alpha fetoprotein in a.m. Plan discussed with: Other (Nurse Avery) CC Plasma Assessment Blood Product Administration S: 182 VASHTI GARZA MD Jun 01, 2024 14:17
--- NOTE | 2024-06-01 16:11 | DVHINCON2 ---
Date of service: Jun 01, 2024 Referring Physician Tabitha Smith NP Reason for Consultation acute kidney injury History of Present Illness Mr. Geiger is a 73-year-old male with known history of chronic kidney disease, baseline creatinine in the mid 2 range and presented for further evaluation and management of several day history of hematemesis, melena. He was found to be severely anemic with initial hemoglobin in the 3 range. He received numerous units of packed RBCs, 1 unit of fresh frozen plasma. Current conization requested due to serum creatinine is elevated above his baseline. He is seen in his room he opened his eyes to voice. Most of the history however was provided from patient's son was at bedside. There is no history of recent NSAID use, fever or chills. Past Medical History diabetes Hypertension Hypothyroidism Chronic kidney disease stage IIIb Allergies: Coded Allergies: NO KNOWN ALLERGIES (Unverified , 06/08/23) Home Meds Active Scripts Pantoprazole Sodium Sesquihydr (Protonix) 40 Mg Tab, 40 MG PO DAILY for 30 Days, #30 TAB Prov:CLAUDIO MACARIO NP 05/22/24 Ferrous Sulfate (Iron) 325 Mg Tab, 325 MG PO BID for 30 Days, #60 TAB Prov:CLAUDIO MACARIO NP 05/22/24 Tamsulosin Hcl (Flomax) 0.4 Mg Cap, 1 CAP PO DAILY for 30 Days, #30 CAP 11 Refills Prov:CLAUDIO MACARIO KITCHEN DESIGNER 05/22/24 Pantoprazole Sodium Sesquihydr (Pantoprazole Sodium) 40 Mg Tab, 40 MG PO DAILY@0600 for 30 Days, #30 TAB 3 Refills Prov:DORA MCFARLAND DO 02/28/24 Reported Medications Omeprazole (Omeprazole Dr) 20 Mg Cap, 20 MG PO DAILY 02/27/24 Insulin Lispro (Admelog) 100 Unit/Ml Inj, 10 UNITS SC UD 02/27/24 Insulin Glargine (Basaglar Kwikpen) 100 Unit/Ml Inj, 30 UNITS SC BEFORE DINNER 02/27/24 Levothyroxine Sodium (Levothyroxine Sodium) 25 Mcg Tab, 25 MCG PO QAM ON EMPTY STOMACH 02/27/24 Tenofovir Alafenamide Fumarate (Vemlidy) 25 Mg Tab, 25 MG PO DAILY 02/27/24 Atorvastatin Calcium (ATORVASTATIN CALCIUM) 40 Mg Tab, 1 TAB PO DAILY, #30 TAB 5 Refills 06/10/23 Semaglutide (Ozempic) 2 Mg/3 Ml Inj, 2 MG SC, INJ 06/10/23 Current Medications Current Medications Medications (Trade) Dose Ordered Sig/Harlan Route PRN Reason Start Time Stop Time Status Last Admin Pantoprazole Sodium (Protonix) 40 mg BID IV 05/31/24 22:00 05/31/24 08:08 DC Sodium Chloride 1,000 ml @ 100 mls/hr Q10H IV 05/31/24 16:45 06/01/24 02:45 Ceftriaxone Sodium 50 ml @ 100 mls/hr DAILY@09 IV 06/01/24 09:00 05/31/24 18:27 DC Piperacillin Sod/ Tazobactam Sod 100 ml @ 25 mls/hr Q8H IV 06/01/24 03:00 06/01/24 11:29 Diagnostic Test (Pha) (Accu-Chek Comfort Curve T) 1 strip IQ4HR 06/01/24 04:00 06/01/24 15:06 Insulin Human Regular (InsuLIN R) IQ4HR FL 06/01/24 04:00 06/01/24 11:02 DC 06/01/24 08:00 Dextrose 50 ml UD PRN IV Blood Sugar LESS THAN 60 06/01/24 00:30 Insulin Human Regular (InsuLIN R) IQ4HR FL 06/01/24 12:00 06/01/24 11:31 Family History: Patient reports no known family medical history. Review of Systems full review of systems unable to be obtained due to patient's lethargy. H&P Exam Vital Signs/I&O Vital Sign Date Time Temp Pulse Resp B/P (MAP) Pulse Ox O2 Delivery O2 Flow Rate FiO2 06/01/24 10:00 100 Room Air* 0 21 06/01/24 09:00 98.0 71 18 123/57 (79) 98.0 Intake and Output 05/31/24 06/01/24 19:00 07:00 Intake Total 4025 ml 1920 ml Output Total 600 ml 0 ml Balance 3425 ml 1920 ml Intake Oral 0 ml 0 ml IV Total 420 ml 1320 ml Tube Feeding 0 ml Blood Product 2470 ml 600 ml Other 1135 ml Output Urine Total 600 ml 0 ml Stool Total 0 ml Emesis 0 ml # Bowel Movements 2 Physical Exam gen: pale heent: nc lungs: Cta cvs: no rub abd: soft ext: + edema skin: ecchomoses neuro: arousable, following commands Labs/Diagnostic Data Labs/Diagnostic Data Laboratory Tests Test 06/01/24 15:05 06/01/24 13:12 06/01/24 12:00 06/01/24 11:01 Range/Units POC Glucose 124 H 70-106 mg/dl Lactic Acid Level 2.4 *H 3.7 *H 0.4-2.0 mmol/L Ammonia < 10 L 11-32 umol/L Plasma/Serum Blood Alcohol < 3.0 <10 mg/dL Test 06/01/24 08:34 06/01/24 06:34 06/01/24 04:53 05/31/24 22:20 Range/Units POC Glucose 321 H 389 H 70-106 mg/dl White Blood Count 5.7 5.2 # 4.4-10.8 10^3/uL Red Blood Count 2.75 L 2.83 L 4.5-5.90 10^6/uL Hemoglobin 8.7 L 8.7 #L 13.5-17.5 g/dL Hematocrit 26.9 L 27.2 #L 41.0-53.0 % Mean Corpuscular Volume 97.7 96.2 # 80.0-100.0 fL Mean Corpuscular Hemoglobin 31.6 30.8 28.0-32.0 pg Mean Corpuscular Hemoglobin Concent 32.3 32.0 32.0-36.0 g/dL Red Cell Distribution Width 18.0 H 16.7 H 11.8-14.3 % Platelet Count 95 L 78 L 140-450 10^3/uL Mean Platelet Volume 9.4 8.9 6.9-10.8 fL Neutrophils (%) (Auto) 82.5 H 77.0 37.0-80.0 % Lymphocytes (%) (Auto) 10.0 13.1 10.0-50.0 % Monocytes (%) (Auto) 6.4 9.4 0.0-12.0 % Eosinophils (%) (Auto) 0.8 0.2 0.0-7.0 % Basophils (%) (Auto) 0.3 0.3 0.0-2.0 % Neutrophils # (Auto) 4.7 4.0 1.6-8.6 10 ^3/uL Lymphocytes # (Auto) 0.6 0.7 0.4-5.4 10 ^3/uL Monocytes # (Auto) 0.4 0.5 0-1.3 10 ^3/uL Eosinophils # (Auto) 0 0 0-0.8 10 ^3/uL Basophils # (Auto) 0 0 0-0.2 10 ^3/uL Nucleated Red Blood Cells 0.3 0.2 % Sodium Level 147 H 145 # 136-145 mmol/L Potassium Level 4.4 5.8 *H 3.5-5.1 mmol/L Chloride Level 115 H 118 H 98-107 mmol/L Carbon Dioxide Level 18 L 17 L 20-31 mmol/L Anion Gap 14 10 5-15 Blood Urea Nitrogen 39 H 46 H 9-23 mg/dL Creatinine 3.06 H 2.88 H 0.700-1.30 mg/dL Glomerular Filtration Rate Calc 21 22 >90 mL/min BUN/Creatinine Ratio 12.7 16.0 10.0-20.0 Serum Glucose 430 *H 381 #H 74-106 mg/dL Calcium Level 8.8 8.2 L 8.7-10.4 mg/dL Total Bilirubin 0.9 0.2-1.0 mg/dL Aspartate Amino Transferase (AST) 100 H 13-40 U/L Alanine Aminotransferase (ALT) 52 H 7-40 U/L Alkaline Phosphatase 167 H 46-116 U/L Total Protein 5.8 5.7-8.2 g/dL Albumin 3.4 3.2-4.8 g/dL Test 05/31/24 16:46 05/31/24 13:09 05/31/24 11:18 05/31/24 10:05 Range/Units Urine Color Light-yellow Yellow Urine Clarity Clear Clear Urine pH 5.0 5.0-9.0 Urine Specific [place] 1.014 1.001-1.035 Urine Protein Negative Negative Urine Ketones 1+ H Negative Urine Blood Negative Negative /uL Urine Nitrite Negative Negative Urine Bilirubin Negative Negative Urine Urobilinogen Normal Negative mg/dL Urine Leukocyte Esterase Negative Negative /uL Urine RBC <1 0 - 3 /hpf Urine WBC <1 0 - 3 /hpf Urine Squamous Epithelial Cells None seen <5 /hpf Urine Bacteria Few H None Seen /hpf Urine Hyaline Casts Few 0 - 2 /lpf Urine Glucose 2+ H Normal mg/dL Lactic Acid Level 9.0 *H 9.2 *H 0.4-2.0 mmol/L POC Glucose 224 H 70-106 mg/dl Test 05/31/24 05:28 Range/Units White Blood Count 7.3 4.4-10.8 10^3/uL Red Blood Count 1.04 L 4.5-5.90 10^6/uL Hemoglobin 3.2 *L 13.5-17.5 g/dL Hematocrit 10.7 L 41.0-53.0 % Mean Corpuscular Volume 103.1 H 80.0-100.0 fL Mean Corpuscular Hemoglobin 30.9 28.0-32.0 pg Mean Corpuscular Hemoglobin Concent 30.0 L 32.0-36.0 g/dL Red Cell Distribution Width 22.4 H 11.8-14.3 % Platelet Count 148 140-450 10^3/uL Mean Platelet Volume 9.3 6.9-10.8 fL Neutrophils (%) (Auto) 79.9 37.0-80.0 % Lymphocytes (%) (Auto) 13.6 10.0-50.0 % Monocytes (%) (Auto) 5.6 0.0-12.0 % Eosinophils (%) (Auto) 0.4 0.0-7.0 % Basophils (%) (Auto) 0.5 0.0-2.0 % Neutrophils # (Auto) 5.9 1.6-8.6 10 ^3/uL Lymphocytes # (Auto) 1.0 0.4-5.4 10 ^3/uL Monocytes # (Auto) 0.4 0-1.3 10 ^3/uL Eosinophils # (Auto) 0 0-0.8 10 ^3/uL Basophils # (Auto) 0 0-0.2 10 ^3/uL Nucleated Red Blood Cells 0.1 % Platelet Estimate Adequate Anisocytosis (manual) Slight Microcytosis Slight Macrocytosis Slight Prothrombin Time 13.0 H 9.3-11.8 sec Prothrombin Time INR 1.25 H 0.9-1.15 Activated Partial Thromboplast Time 23.4 L 24.5-34.5 SEC Sodium Level 140 136-145 mmol/L Potassium Level 7.2 *H 3.5-5.1 mmol/L Chloride Level 115 H 98-107 mmol/L Carbon Dioxide Level 15 L 20-31 mmol/L Anion Gap 10 5-15 Blood Urea Nitrogen 53 H 9-23 mg/dL Creatinine 2.84 H 0.700-1.30 mg/dL Glomerular Filtration Rate Calc 23 >90 mL/min BUN/Creatinine Ratio 18.7 10.0-20.0 Serum Glucose 274 H 74-106 mg/dL Calcium Level 7.6 L 8.7-10.4 mg/dL Total Bilirubin 0.8 0.2-1.0 mg/dL Aspartate Amino Transferase (AST) 58 H 13-40 U/L Alanine Aminotransferase (ALT) 42 H 7-40 U/L Alkaline Phosphatase 221 H 46-116 U/L Total Protein 4.9 L 5.7-8.2 g/dL Albumin 3.1 L 3.2-4.8 g/dL Lipase 134 H 12-53 U/L Assessment IMP: 1) hemodynamically mediated acute kidney injury/ prerenal etiology 2) severe acute blood loss anemia - initial hemoglobin 3.2 this admission 3) history of hypertension 4) DM II 5) CKD IIIb REC: - Agree with continued supportive measures - Gastroenterology following - We will quantify proteinuria, out patient follow-up in CKD clinic after discharge. - should he have clinically significant proteinuria, he will benefit from SATINDER/ARB tx That can be initiated on an outpatient basis. - Thank you for the consultation. Plan discussed with: Patient, Son JANUSZ CRESPO MD Jun 01, 2024 16:11
--- NOTE | 2024-06-01 21:57 | DVHPN2 ---
Subjective Update 06/01 - patient is more alert and orient today. Son has endorsed that patient does appear to be improving. No further hematemesis. Continues to have melanotic stool staff for today. Continue to treat for GI bleed and hyperkalemia and hyperglycemia.- Update 05/31-patient is hard of hearing, also appears to be confused A&O times 1-2) open not oriented to place but is oriented to person and time). Patient has multiple melena and hematemesis, hyperkalemia, high risk of GI bleed. Patient unable to confirm whether he has any complaints due to confusion. He is also pulling lines and has required Mitten. RBC infusing for severe anemia ABLA Reviewed: H&P Changes from previous H/P or p: No Changes General: Per HPI Objective Vitals Vital Signs Date Time Temp Pulse Resp B/P (MAP) Pulse Ox O2 Delivery O2 Flow Rate FiO2 06/01/24 17:00 98.3 69 19 131/54 (79) 100 98.3 06/01/24 10:00 Room Air* 0 21 Intake/Output Intake and Output 06/01/24 07:00 Intake Total 5945 ml Output Total 600 ml Balance 5345 ml Intake Oral 0 ml IV Total 1740 ml Tube Feeding 0 ml Blood Product 3070 ml Other 1135 ml Output Urine Total 600 ml Stool Total 0 ml Emesis 0 ml # Bowel Movements 2 Exam GEN: Mild distress, A&O times 1-2 HEENT: NC/AT; moist mucous membranes CV: S1-S2, and no MRG LUNGS: CTAB, no w/r/c. ABD: Soft, NT/ND, NBS, no masses or organomegaly. EXT: skin Warm, well perfused. no rashes. No clubbing, cyanosis, or edema. NEURO: Ambulating with no limitations. No focal deficits. Medications Current Medications Medications Dose Ordered Sig/Harlan Route Start Time Stop Time Status Last Admin Dose Admin Acetaminophen/ Hydrocodone Bitart 1 tab Q4HP PRN PO 05/31/24 06:45 Ondansetron HCl 4 mg Q4HP PRN IV 05/31/24 06:45 Acetaminophen 650 mg Q6HP PRN PO 05/31/24 06:45 Morphine Sulfate 2 mg Q4HPRN PRN IV 05/31/24 06:45 Pantoprazole Sodium 50 ml @ 10 mls/hr Q5H IV 05/31/24 08:15 06/01/24 19:27 10 MLS/HR Sodium Chloride 1,000 ml @ 100 mls/hr Q10H IV 05/31/24 16:45 06/01/24 02:45 100 MLS/HR Piperacillin Sod/ Tazobactam Sod 100 ml @ 25 mls/hr Q8H IV 06/01/24 03:00 06/01/24 17:07 25 MLS/HR Diagnostic Test (Pha) 1 strip IQ4HR 06/01/24 04:00 06/01/24 20:22 1 STRIP Dextrose 50 ml UD PRN IV 06/01/24 00:30 Insulin Human Regular IQ4HR SC 06/01/24 12:00 06/01/24 11:31 8 UNITS Laboratory Results Laboratory Tests 06/01/24 06:34 Chemistry Test 05/31/24 22:20 06/01/24 06:34 Calcium Level 8.2 mg/dL (8.7-10.4) L 8.8 mg/dL (8.7-10.4) Albumin 3.4 g/dL (3.2-4.8) Total Protein 5.8 g/dL (5.7-8.2) LFT Test 06/01/24 06:34 Alanine Aminotransferase (ALT) 52 U/L (7-40) H Alkaline Phosphatase 167 U/L (46-116) H Aspartate Amino Transferase (AST) 100 U/L (13-40) H Total Bilirubin 0.9 mg/dL (0.2-1.0) Urinalysis Test 05/31/24 16:46 Urine Color Light-yellow (Yellow) Urine Clarity Clear (Clear) Urine pH 5.0 (5.0-9.0) Urine Specific [place] 1.014 (1.001-1.035) Urine Protein Negative (Negative) Urine Ketones 1+ (Negative) H Urine Blood Negative /uL (Negative) Urine Nitrite Negative (Negative) Urine Bilirubin Negative (Negative) Urine Urobilinogen Normal mg/dL (Negative) Urine Leukocyte Esterase Negative /uL (Negative) Urine RBC <1 /hpf (0 - 3) Urine WBC <1 /hpf (0 - 3) Urine Squamous Epithelial Cells None seen /hpf (<5) Urine Bacteria Few /hpf (None Seen) H Urine Hyaline Casts Few /lpf (0 - 2) Urine Glucose 2+ mg/dL (Normal) H Labs and/or images reviewed: Labs reviewed by me, Image(s) reviewed by me Assessment/Plan Assessment/Plan Update 06/01 - patient is more alert and orient today. Son has endorsed that patient does appear to be improving. No further hematemesis. Continues to have melanotic stool staff for today. Continue to treat for GI bleed and hyperkalemia and hyperglycemia.- # acute upper GI bleed/melena # ABLA # lactic acidosis- likely to anemia improving - history of recent EGD showing polyps and gastroduodenitis --recent colonoscopy showing 2 polyps, biopsy taken, also 2 internal hemorrhoids,.. -on PPI IV b.i.d., hemoglobin low transfusing 3 units- -GI consulted plan for EGD once patient is stable # hyperkalemia given hyperkalemia protocol. Does not qualify for calcium gluconate. We will continue monitoring on tele. Insulin/D50 as needed # elevated LFTs # history hepatitis-B # liver mass- follow up on pathology from prior biopsy # CKD 4. Nephrology consulted- want to quantify proteinuria and follow up outpatient #diabetes with hyperglycemia- NPO - develops hyperglycemia, upgrade Accu-Cheks and SSI to aggressive scale #CHF - continue home meds, keep euvolumia with p.r.n. Lasix IV as patient is confused # CVA history #history of liver cirrhosis #thyroid disease history diet NPO DVT prophylaxis-SCDs GI prophylaxis PPI be IV b.i.d. Med tele Full code Plan discussed with: Patient My Orders Orders - JOSE OCASIO MD Procedure Category Date Status Time Glucose Blood PHA 06/01/24 In Process (Accu-Chek Comfort 04:00 Dextrose 50% Syringe PHA 06/01/24 In Process 00:30 Insulin R (Human) PHA 06/01/24 In Process (Insulin R) 12:00 Drug Screen LAB 06/01/24 Logged 11:29 Date of Service: Jun 01, 2024 Billing Provider: JOSE OCASIO MD Common Visit Codes: [id number] INP/OBS CARE(HIGH) JOSE OCASIO MD Jun 01, 2024 21:57
[2024-06-01 23:17] LABS: Protein, Urine 19.6 mg/dL (1-14)
[2024-06-01 23:20] LABS: Amphetamine Screen, Urine Neg (NEGATIVE); Barbiturate Scree,Urine Neg (NEGATIVE); Benzodiazephine Screen, Urine Neg (NEGATIVE); Cannabinoid Screen, Urine Neg (NEGATIVE); Cocaine Screen, Urine Neg (NEGATIVE); Creatinine, Urine 64.58 mg/dL (30.0-125.0); Opiate Scree,Urine Neg (NEGATIVE); Phencyclidine Screen, Urine Neg (NEGATIVE)
[2024-06-02] VITALS (13 sets, daily range): BP systolic 124–156; BP diastolic 48–154; PULSE 58–99; RESP 11–20; TEMP 97.7–99.7; O2SAT 92–100
[2024-06-02 07:32] LABS: Basophils # (auto) 0 10 ^3/uL (0-0.2); Eosinophils # (auto) 0.1 10 ^3/uL (0-0.8); Lymphocytes # (auto) 0.6 10 ^3/uL (0.4-5.4); Lymphocytes % (auto) 16.6 % (10.0-50.0); Monocytes # (auto) 0.3 10 ^3/uL (0-1.3); Neutrophils % (auto) 72.3 % (37.0-80.0); Platelet Count (auto) 83 10^3/uL (140-450); Red Blood Cells 2.62 10^6/uL (4.5-5.90); White Blood Cell 3.7 10^3/uL (4.4-10.8)
[2024-06-02 07:35] LABS: Basophils % (auto) 0.4 % (0.0-2.0); Eosinophils % (auto) 2.5 % (0.0-7.0); Hematocrit 24.8 % (41.0-53.0); Hemoglobin 8.3 g/dL (13.5-17.5); Mean Corpuscular Hemoglobin 31.6 pg (28.0-32.0); Mean Corpuscular Hgb Conc. 33.4 g/dL (32.0-36.0); Mean Corpuscular Volume 94.7 fL (80.0-100.0); Monocytes % (auto) 8.2 % (0.0-12.0); Neutrophils # (auto) 2.6 10 ^3/uL (1.6-8.6); Nucleated Red Blood Cells % 0.5 %; Red Cell Distribution Width 16.9 % (11.8-14.3)
[2024-06-02 07:56] LABS: Potassium 3.8 mmol/L (3.5-5.1)
[2024-06-02 07:57] LABS: Anion Gap 11 (5-15); Carbon Dioxide 21 mmol/L (20-31)
[2024-06-02 07:58] LABS: Calcium 8.3 mg/dL (8.7-10.4); Chloride 118 mmol/L (98-107); Sodium 150 mmol/L (136-145)
[2024-06-02 08:02] LABS: BUN/Creatinine Ratio 11.3 (10.0-20.0)
[2024-06-02 08:04] LABS: Blood Urea Nitrogen 31 mg/dL (9-23); Glucose 113 mg/dL (74-106)
[2024-06-02] MEDS ORDERED: ONDANSETRON HCL 4 MG/2 ML VIAL IV ONE (09:00)
[2024-06-02] MEDS ORDERED: MIDAZOLAM HCL 2MG/2ML 2ml VIAL (1mg/ml) ONE (09:04)
[2024-06-02] MEDS ORDERED: PROPOFOL 10 MG/ML 20 ML IV ONE (09:07)
[2024-06-02] MEDS ORDERED: ONDANSETRON HCL 4 MG/2 ML VIAL ONE (09:08)
--- NOTE | 2024-06-02 11:03 | DVHOP2 ---
Operative Report DATE OF OPERATION: 06/02/24 PROCEDURE: Upper Endoscopy with biopsy. PREOPERATIVE INDICATION: The patient is a 73 -year-old male undergoing endoscopy for severe anemia rule out upper GI bleed POSTOPERATIVE DIAGNOSES: 1. Patient has a persistent pre-pyloric antral polypoid fold which appeared inflammatory with some central erosions and multiple biopsies were obtained 2. Mild gastropathy involving the proximal stomach with a superficial AVM noted in the cardia 3. 1-2 cm sliding-type hiatal hernia with minimal grade a erosive esophagitis PROCEDURE PERFORMED BY: Vashti Martin GI NURSE: Kirk SCOPE: Olympus videoendoscope. ASA CLASS: 3. PREOPERATIVE MEDICATIONS: Mac sedationDr. Olmedo PROCEDURE IN DETAIL: After obtaining an informed consent, the patient was placed on left lateral decubitus position. The patient was then sedated with the above medications. A bite block was placed between his teeth. The endoscope was then passed through the oropharynx, into the esophagus, and through the stomach and pylorus up to the second and third part of the duodenum. The endoscope was then withdrawn. The 2nd and 3rd part of the duodenal and the duodenal bulb were normal. Duodenal biopsies were obtained. There was good bile drainage. The pre-pyloric area and antrum showed mild gastritis. There was a pre-pyloric antral polypoid fold which appeared inflammatory with central erosion. Multiple biopsies were obtained from this area again. On retroflexion patient had mild gastropathy in the proximal cardia and fundus of the stomach. There was a superficial tiny AVM noted in the cardia of the stomach. There was no fresh or old blood in the stomach. Gastric biopsies were obtained from proximal stomach The endoscope was then withdrawn into the distal esophagus. He had a 1-2 cm sliding-type hiatal hernia with minimal grade a erosive esophagitis The remaining distal and proximal esophagus and oropharynx were unremarkable. The patient tolerated the procedure well without difficulty. COMPLICATIONS : None SPECIMENS: Duodenal biopsies Gastric antral polypoid fold biopsies Proximal stomach biopsies DISPOSITION: Transfer back to the floor Stable PLAN: 1. Await for biopsy result 2. Will place pt on Protonix 40 mg bid 3. Carafate 1 g p.o. twice a day 4. On previous endoscopy in February there were some rare H.pylori bacteria. I believe he was treated with antibiotics previously otherwise we can give him amoxicillin Biaxin and Protonix on his discharge 5. Patient had a recent colonoscopy which showed some tubular adenomas and 2+ hemorrhoids 6. Patient's liver biopsy done on last admission showed hepatocellular carcinoma moderately differentiated, get Oncology consult VASHTI MARTIN MD Jun 02, 2024 11:03
[2024-06-02] MEDS: D5W/SOD CHL 0.45% 1,000 ML IV SCH (12:32)
--- NOTE | 2024-06-02 15:46 | DVHPN2 ---
Progress Note Date Seen: Jun 02, 2024 Medical Necessity Reason Pt with a Central, PICC or Fol: No Subjective Patient reports: No new complaints Other Systems: Patient seen and examined by myself today in f/u Objective vital signs Vital Sign Date Time Temp Pulse Resp B/P (MAP) Pulse Ox O2 Delivery O2 Flow Rate FiO2 06/02/24 12:32 97.8 62 16 156/67 (96) 100 97.8 06/02/24 10:00 Room Air 06/02/24 09:38 97 06/02/24 09:22 10.0 Total Intake and Output 06/01/24 06/01/24 06/02/24 15:00 23:00 07:00 Intake Total 50 ml 250 ml 1180 ml Output Total 800 ml 800 ml Balance 50 ml -550 ml 380 ml medications Current Medications Medications Dose Ordered Sig/Ahrlan Route Start Time Stop Time Status Last Admin Dose Admin Acetaminophen/ Hydrocodone Bitart 1 tab Q4HP PRN PO 05/31/24 06:45 Ondansetron HCl 4 mg Q4HP PRN IV 05/31/24 06:45 Acetaminophen 650 mg Q6HP PRN PO 05/31/24 06:45 Morphine Sulfate 2 mg Q4HPRN PRN IV 05/31/24 06:45 Pantoprazole Sodium 50 ml @ 10 mls/hr Q5H IV 05/31/24 08:15 06/02/24 10:46 10 MLS/HR Piperacillin Sod/ Tazobactam Sod 100 ml @ 25 mls/hr Q8H IV 06/01/24 03:00 06/02/24 10:50 25 MLS/HR Diagnostic Test (Pha) 1 strip IQ4HR 06/01/24 04:00 06/02/24 11:03 1 STRIP Dextrose 50 ml UD PRN IV 06/01/24 00:30 Insulin Human Regular IQ4HR SC 06/01/24 12:00 06/01/24 11:31 8 UNITS Pantoprazole Sodium 40 mg BID IV 06/02/24 22:00 Sucralfate 1 gm BID@0600,2200 PO 06/02/24 22:00 Dextrose/Sodium Chloride 1,000 ml @ 100 mls/hr Q10H IV 06/02/24 11:15 06/02/24 21:00 06/02/24 12:32 100 MLS/HR Examination: LUNGS:Normal, CVS:Normal, MSK:Normal laboratory and microbiology Laboratory Tests 06/02/24 06:40 Test 06/02/24 06:40 Range/Units Serum Glucose 113 #H 74-106 mg/dL Problem List/Assessment/Plan Problem List/Assessment/Plan JOHN superimposed on CKD secondary to hemodynamic mediated, FeNa > 2% Severe anemia due to blood loss DM II CKD IIIb HTN Hypernatremia due to dehydration REC: Kidney function slowly improving Increased UOP Strict I&O's I agree with hypotonic IVF hydration PRBC transfusion prn BP control GI consult Will continue to follow Plan discussed with: Patient CC Plasma Assessment Blood Product Administration S: [id number] LINDA BACON MD Jun 02, 2024 15:46
--- NOTE | 2024-06-02 20:27 | DVHPN2 ---
Subjective Update 06/02 patient appears more alert and oriented today. Status post EGD. No complaints today, tolerating p.o., no change today. No further nausea and vomiting. 06/01 - patient is more alert and orient today. Son has endorsed that patient does appear to be improving. No further hematemesis. Continues to have melanotic stool staff for today. Continue to treat for GI bleed and hyperkalemia and hyperglycemia.- 05/31-patient is hard of hearing, also appears to be confused A&O times 1-2) open not oriented to place but is oriented to person and time). Patient has multiple melena and hematemesis, hyperkalemia, high risk of GI bleed. Patient unable to confirm whether he has any complaints due to confusion. He is also pulling lines and has required Mitten. RBC infusing for severe anemia ABLA Reviewed: H&P Changes from previous H/P or p: No Changes General: Per HPI Objective Vitals Vital Signs Date Time Temp Pulse Resp B/P (MAP) Pulse Ox O2 Delivery O2 Flow Rate FiO2 06/02/24 19:49 97.7 65 17 141/48 (79) 97 97.7 06/02/24 10:00 Room Air 06/02/24 09:38 97 06/02/24 09:22 10.0 Intake/Output Intake and Output 06/02/24 07:00 Intake Total 1480 ml Output Total 1600 ml Balance -120 ml Intake Oral 120 ml IV Total 1360 ml Output Urine Total 1600 ml # Voids 2 # Bowel Movements 4 Exam GEN: Mild distress, A&O times 2-3 HEENT: NC/AT; moist mucous membranes CV: S1-S2, and no MRG LUNGS: CTAB, no w/r/c. ABD: Soft, NT/ND, NBS, no masses or organomegaly. EXT: skin Warm, well perfused. no rashes. No clubbing, cyanosis, or edema. NEURO: Ambulating with no limitations. No focal deficits. Medications Current Medications Medications Dose Ordered Sig/Harlan Route Start Time Stop Time Status Last Admin Dose Admin Acetaminophen/ Hydrocodone Bitart 1 tab Q4HP PRN PO 05/31/24 06:45 Ondansetron HCl 4 mg Q4HP PRN IV 05/31/24 06:45 Acetaminophen 650 mg Q6HP PRN PO 05/31/24 06:45 Morphine Sulfate 2 mg Q4HPRN PRN IV 05/31/24 06:45 Pantoprazole Sodium 50 ml @ 10 mls/hr Q5H IV 05/31/24 08:15 06/02/24 15:58 10 MLS/HR Piperacillin Sod/ Tazobactam Sod 100 ml @ 25 mls/hr Q8H IV 06/01/24 03:00 06/02/24 18:42 25 MLS/HR Diagnostic Test (Pha) 1 strip IQ4HR 06/01/24 04:00 06/02/24 20:01 1 STRIP Dextrose 50 ml UD PRN IV 06/01/24 00:30 Insulin Human Regular IQ4HR SC 06/01/24 12:00 06/02/24 20:05 16 UNITS Pantoprazole Sodium 40 mg BID IV 06/02/24 22:00 Sucralfate 1 gm BID@0600,2200 PO 06/02/24 22:00 Dextrose/Sodium Chloride 1,000 ml @ 100 mls/hr Q10H IV 06/02/24 11:15 06/02/24 21:00 06/02/24 12:32 100 MLS/HR Laboratory Results Laboratory Tests 06/02/24 06:40 Chemistry Test 06/02/24 06:40 Calcium Level 8.3 mg/dL (8.7-10.4) L Urinalysis Test 05/31/24 16:46 06/01/24 21:30 Urine Color Light-yellow (Yellow) Urine Clarity Clear (Clear) Urine pH 5.0 (5.0-9.0) Urine Specific [place] 1.014 (1.001-1.035) Urine Protein Negative (Negative) Urine Ketones 1+ (Negative) H Urine Blood Negative /uL (Negative) Urine Nitrite Negative (Negative) Urine Bilirubin Negative (Negative) Urine Urobilinogen Normal mg/dL (Negative) Urine Leukocyte Esterase Negative /uL (Negative) Urine RBC <1 /hpf (0 - 3) Urine WBC <1 /hpf (0 - 3) Urine Squamous Epithelial Cells None seen /hpf (<5) Urine Bacteria Few /hpf (None Seen) H Urine Hyaline Casts Few /lpf (0 - 2) Urine Glucose 2+ mg/dL (Normal) H Urine Creatinine 64.58 mg/dL (30.0-125.0) Urine Sodium 106 mmol/L (40-220) Urine Total Protein 19.6 mg/dL (1-14) H Labs and/or images reviewed: Labs reviewed by me, Image(s) reviewed by me Assessment/Plan Assessment/Plan Update 06/02 patient appears more alert and oriented today. Status post EGD. No complaints today, tolerating p.o., no change today. No further nausea and vomiting. Nonbleeding source in stomach, GI Protonix and Carafate. Mass biopsy from prior visits shows hepatocellular carcinoma and oncology is consulted. We will confirm patient was treated for H pylori which was in rare amounts prior endoscopy EGD biopsy. We will treat H pylori if it is not completed treatment yet. # Acute toxic metabolic encephalopathy # chronic hearing loss -On admission patient has difficulty understanding. Unclear this is language barrier or hearing loss. Falling infusions of 3 RBC, patient is improving.. Likely sources brain hypoxia from acute severe anemia. # acute upper GI bleed/melena # ABLA # lactic acidosis- likely to anemia improving - history of recent EGD showing polyps and gastroduodenitis --recent colonoscopy showing 2 polyps, biopsy taken, also 2 internal hemorrhoids,.. -[id number] prepyloric antral polypoid fold, mild gastropathy, proximal stomach with superficial AVM, sliding-type hiatal hernia, minimal erosive esophagitis. - GI status post EGD biopsies taken, plan to treat with Protonix 40 mg b.i.d., Carafate 1 g p.o. b.i.d. # rare H pylori bacteria from prior EGD-not treated, GI plan treat H pylori on this admission. Continue outpatient treatment if not already done. # hx liver mass # hepatocellular carcinoma moderately differentiated -in prior, liver biopsy done, showing hepatocellular carcinoma moderately differentiated -oncology consult placed. # hyperkalemia given hyperkalemia protocol. Does not qualify for calcium gluconate. We will continue monitoring on tele. Insulin/D50 as needed # elevated LFTs # history hepatitis-B # CKD 4. Nephrology consulted- want to quantify proteinuria and follow up outpatient #diabetes with hyperglycemia- NPO - develops hyperglycemia, upgrade Accu-Cheks and SSI to aggressive scale #CHF - continue home meds, keep euvolumia with p.r.n. Lasix IV as patient is confused # CVA history #history of liver cirrhosis #thyroid disease history diet CLD DVT prophylaxis-SCDs GI prophylaxis PPI be p.o. b.i.d. Med tele Full code Plan discussed with: Patient My Orders Orders - JOSE OCASIO MD Procedure Category Date Status Time D5w/Sod Chl 0.45% PHA 06/02/24 In Process (D5w 1/2ns) 11:15 * Hematology/Oncology CONS 06/02/24 Transmitted Consult 16:48 Date of Service: Jun 02, 2024 Billing Provider: JOSE OCASIO MD Common Visit Codes: [id number] INP/OBS CARE(HIGH) JOSE OCASIO MD Jun 02, 2024 20:27
[2024-06-02] MEDS: PANTOPRAZOLE 40 MG/10 ML VIAL INJ IV SCH (22:19)
[2024-06-02] MEDS: SUCRALFATE 1 GM/10 ML ORAL SUSP PO SCH (22:20)
[2024-06-03] VITALS (7 sets, daily range): BP systolic 110–150; BP diastolic 43–55; PULSE 53–63; RESP 16–18; TEMP 97.8–98.2; O2SAT 96–100
[2024-06-03 08:01] LABS: Basophils # (auto) 0 10 ^3/uL (0-0.2); Basophils % (auto) 0.6 % (0.0-2.0); Eosinophils # (auto) 0.2 10 ^3/uL (0-0.8); Monocytes # (auto) 0.4 10 ^3/uL (0-1.3)
[2024-06-03 08:04] LABS: Anion Gap 8 (5-15); BUN/Creatinine Ratio 10.3 (10.0-20.0); Bilirubin, Total 0.8 mg/dL (0.2-1.0); Carbon Dioxide 24 mmol/L (20-31); Eosinophils % (auto) 3.9 % (0.0-7.0); Hematocrit 23.5 % (41.0-53.0); Lymphocytes # (auto) 0.9 10 ^3/uL (0.4-5.4); Lymphocytes % (auto) 18.1 % (10.0-50.0); Mean Corpuscular Hgb Conc. 33.9 g/dL (32.0-36.0); Mean Corpuscular Volume 94.4 fL (80.0-100.0); Neutrophils # (auto) 3.3 10 ^3/uL (1.6-8.6); Neutrophils % (auto) 69.4 % (37.0-80.0); Nucleated Red Blood Cells % 0.7 %; Platelet Count (auto) 97 10^3/uL (140-450); Potassium 3.6 mmol/L (3.5-5.1); Red Blood Cells 2.49 10^6/uL (4.5-5.90); White Blood Cell 4.7 10^3/uL (4.4-10.8)
[2024-06-03 08:06] LABS: Alanine Aminotransferase 52 U/L (7-40); Albumin 2.9 g/dL (3.2-4.8); Alkaline Phosphatase 135 U/L (46-116); Aspartate Aminotransferase 79 U/L (13-40); Blood Urea Nitrogen 27 mg/dL (9-23); Calcium 7.8 mg/dL (8.7-10.4); Chloride 113 mmol/L (98-107); Glucose 54 mg/dL (74-106); Sodium 145 mmol/L (136-145); Total Protein 4.8 g/dL (5.7-8.2)
--- NOTE | 2024-06-03 08:57 | DVHINCON2 ---
Date of service: Jun 03, [address] Vieira Reason for Consultation Hepatocellular carcinoma History of Present Illness 73 years old gentleman with a history of hypertension, hyperlipidemia, diabetes, CHF, anemia needing blood transfusions, history of CVA, liver mass. He is known to have a liver mass since 2013 and had a biopsy done in [facility] which person was benign. He had a liver biopsy done which was reported as hepatocellular carcinoma moderately differentiated on 05/29/2024 at [facility] He was found to have hepatitis-B surface antigen positive He presents to the ED today for coughing up blood x2 and hematemesis along with blood in his stool x2 days. Per son Hector patient has been having uncontrollable bowel movements the last 2 days and son noted that there was blood in the stool. Patient has done states that patient had quit smoking quite some time ago, quit drinking as well, denies drug use, denies fever, chills, chest pain, shortness of breath, lightheadedness, and dizziness. He has been transfused 4 units of packed red cells on 05/31 124 and a bag of fresh frozen plasma regarding he presented with a white count of 7.3 hemoglobin 3.2 MCV 103.1 platelets 148 and with 4 units the hemoglobin is stable around eight BUN 27 creatinine 2.6 calcium 7.8 total bili 0.8 AST 79 ALT 52 and total protein 4.8 albumin 2.9 PT INR 1.[address] of the abdomen and pelvis without IV contrast showed 10.5 cm left hepatic lobe mass and few dense foci throughout the mass may be post procedural related to hemorrhage. Prostatomegaly No significant weight loss. No nausea or vomiting diarrhea is better. No abdominal pains. No fevers night sweats or bruising Past Medical History Anemia Hepatitis-B Diabetes Hypothyroidism Anemia needing blood transfusions History of CVA Congestive heart failure hyperlipidemia Family History: Patient reports no known family medical history. Family History Unremarkable for malignancy or hematological disorders Social History No smoking or drinking or drugs Allergies: Coded Allergies: NO KNOWN ALLERGIES (Unverified , 06/08/23) Home Meds Active Scripts Pantoprazole Sodium Sesquihydr (Protonix) 40 Mg Tab, 40 MG PO DAILY for 30 Days, #30 TAB Prov:CLAUDIO MACARIO SOAP CHIPPER 05/22/24 Ferrous Sulfate (Iron) 325 Mg Tab, 325 MG PO BID for 30 Days, #60 TAB Prov:CLAUDIO MACARIO SOAP CHIPPER 05/22/24 Tamsulosin Hcl (Flomax) 0.4 Mg Cap, 1 CAP PO DAILY for 30 Days, #30 CAP 11 Refills Prov:CLAUDIO MACARIO SOAP CHIPPER 05/22/24 Pantoprazole Sodium Sesquihydr (Pantoprazole Sodium) 40 Mg Tab, 40 MG PO DAILY@0600 for 30 Days, #30 TAB 3 Refills Prov:DORA MCFARLAND DO 02/28/24 Reported Medications Omeprazole (Omeprazole Dr) 20 Mg Cap, 20 MG PO DAILY 02/27/24 Insulin Lispro (Admelog) 100 Unit/Ml Inj, 10 UNITS SC UD 02/27/24 Insulin Glargine (Basaglar Kwikpen) 100 Unit/Ml Inj, 30 UNITS SC BEFORE DINNER 02/27/24 Levothyroxine Sodium (Levothyroxine Sodium) 25 Mcg Tab, 25 MCG PO QAM ON EMPTY STOMACH 02/27/24 Tenofovir Alafenamide Fumarate (Vemlidy) 25 Mg Tab, 25 MG PO DAILY 02/27/24 Atorvastatin Calcium (ATORVASTATIN CALCIUM) 40 Mg Tab, 1 TAB PO DAILY, #30 TAB 5 Refills 06/10/23 Semaglutide (Ozempic) 2 Mg/3 Ml Inj, 2 MG SC, INJ 06/10/23 Current Medications Current Medications Medications (Trade) Dose Ordered Sig/Harlan Route PRN Reason Start Time Stop Time Status Last Admin Pantoprazole Sodium (Protonix) 40 mg BID IV 06/02/24 22:00 06/02/24 22:19 Sucralfate (Carafate Susp) 1 gm BID@0600,2200 PO 06/02/24 22:00 06/03/24 06:07 Dextrose/Sodium Chloride 1,000 ml @ 100 mls/hr Q10H IV 06/02/24 11:15 06/02/24 21:00 DC 06/02/24 12:32 Vital Signs Vital Signs Date Time Temp Pulse Resp B/P (MAP) Pulse Ox O2 Delivery O2 Flow Rate FiO2 06/03/24 03:57 98.1 53 16 110/47 (68) 100 98.1 06/02/24 20:00 Room Air* 0 21 Physical Exam Moderately built and nourished, in no acute distress, alert and oriented. No jaundice Head and neck: Unremarkable for any masses or neck nodes. No conjunctival or mucosal hemorrhage Lungs: Clear Cardiovascular: S1-S2 heard well Abdomen: No organomegaly, tenderness or ascites. Bowel sounds are present. Extremities: No clubbing edema cyanosis or calf tenderness. Skin: Unremarkable for petechia purpura ecchymosis Lymphadenopathy: None Neurological exam: No focal deficit Labs/Diagnostic Data Labs Test 06/03/24 06:21 06/03/24 04:51 06/01/24 21:30 06/01/24 13:12 Range/Units White Blood Count 4.7 # 4.4-10.8 10^3/uL Red Blood Count 2.49 L 4.5-5.90 10^6/uL Hemoglobin 8.0 L 13.5-17.5 g/dL Hematocrit 23.5 L 41.0-53.0 % Mean Corpuscular Volume 94.4 80.0-100.0 fL Mean Corpuscular Hemoglobin 32.0 28.0-32.0 pg Mean Corpuscular Hemoglobin Concent 33.9 32.0-36.0 g/dL Red Cell Distribution Width 17.0 H 11.8-14.3 % Platelet Count 97 L 140-450 10^3/uL Mean Platelet Volume 8.2 6.9-10.8 fL Neutrophils (%) (Auto) 69.4 37.0-80.0 % Lymphocytes (%) (Auto) 18.1 10.0-50.0 % Monocytes (%) (Auto) 8.0 0.0-12.0 % Eosinophils (%) (Auto) 3.9 0.0-7.0 % Basophils (%) (Auto) 0.6 0.0-2.0 % Neutrophils # (Auto) 3.3 1.6-8.6 10 ^3/uL Lymphocytes # (Auto) 0.9 0.4-5.4 10 ^3/uL Monocytes # (Auto) 0.4 0-1.3 10 ^3/uL Eosinophils # (Auto) 0.2 0-0.8 10 ^3/uL Basophils # (Auto) 0 0-0.2 10 ^3/uL Nucleated Red Blood Cells 0.7 % Sodium Level 145 # 136-145 mmol/L Potassium Level 3.6 3.5-5.1 mmol/L Chloride Level 113 H 98-107 mmol/L Carbon Dioxide Level 24 20-31 mmol/L Anion Gap 8 5-15 Blood Urea Nitrogen 27 H 9-23 mg/dL Creatinine 2.61 H 0.700-1.30 mg/dL Glomerular Filtration Rate Calc 25 >90 mL/min BUN/Creatinine Ratio 10.3 10.0-20.0 Serum Glucose 54 L 74-106 mg/dL Calcium Level 7.8 L 8.7-10.4 mg/dL Total Bilirubin 0.8 0.2-1.0 mg/dL Aspartate Amino Transferase (AST) 79 H 13-40 U/L Alanine Aminotransferase (ALT) 52 H 7-40 U/L Alkaline Phosphatase 135 H 46-116 U/L Total Protein 4.8 L 5.7-8.2 g/dL Albumin 2.9 L 3.2-4.8 g/dL POC Glucose 89 70-106 mg/dl Urine Creatinine 64.58 30.0-125.0 mg/dL Urine Sodium 106 40-220 mmol/L Urine Total Protein 19.6 H 1-14 mg/dL Urine Opiates Screen Neg NEGATIVE Urine Fentanyl Screen Neg NEGATIVE Urine Barbiturates Screen Neg NEGATIVE Urine Phencyclidine Screen Neg NEGATIVE Urine Amphetamines Screen Neg NEGATIVE Urine Benzodiazepines Screen Neg NEGATIVE Urine Cocaine Screen Neg NEGATIVE Urine Cannabinoids Screen Neg NEGATIVE Lactic Acid Level 2.4 *H 0.4-2.0 mmol/L Test 06/01/24 12:00 05/31/24 16:46 05/31/24 05:28 Range/Units Ammonia < 10 L 11-32 umol/L Plasma/Serum Blood Alcohol < 3.0 <10 mg/dL Urine Color Light-yellow Yellow Urine Clarity Clear Clear Urine pH 5.0 5.0-9.0 Urine Specific [place] 1.014 1.001-1.035 Urine Protein Negative Negative Urine Ketones 1+ H Negative Urine Blood Negative Negative /uL Urine Nitrite Negative Negative Urine Bilirubin Negative Negative Urine Urobilinogen Normal Negative mg/dL Urine Leukocyte Esterase Negative Negative /uL Urine RBC <1 0 - 3 /hpf Urine WBC <1 0 - 3 /hpf Urine Squamous Epithelial Cells None seen <5 /hpf Urine Bacteria Few H None Seen /hpf Urine Hyaline Casts Few 0 - 2 /lpf Urine Glucose 2+ H Normal mg/dL Platelet Estimate Adequate Anisocytosis (manual) Slight Microcytosis Slight Macrocytosis Slight Prothrombin Time 13.0 H 9.3-11.8 sec Prothrombin Time INR 1.25 H 0.9-1.15 Activated Partial Thromboplast Time 23.4 L 24.5-34.5 SEC Lipase 134 H 12-53 U/L Assessment 1. Hepatocellular carcinoma from the liver biopsy at the 10.5 cm mass with history of hepatic mass for the last 10 years and biopsy per son on the liver in 2014 was not malignant. Has had anemia, B12 547 folate 19.7, total protein 6.6 albumin four LDH 252 AST 224 ALT 36 ferritin 18.3 iron saturation 29.2 serum iron 56 GFR 30 The etiology of anemia could be multifactorial with iron deficiency, secondary to liver disease, secondary to renal insufficiency. 2. GI bleed with vomiting blood EGD on this admission showed a persistent pre-pyloric antral polypoid fold which appear inflammatory with some central erosions and multiple biopsies taken Mild gastropathy involving the proximal stomach with a superficial AVM noted in the cardia. 1-2 cm sliding-type hiatal hernia with a minimal grade a erosive esophagitis Colonoscope on 05/21/2024 showed some benign-looking polyps and internal hemorrhoids otherwise unremarkable ESR 90 retic count 2.78 3. Diabetes 4. Hypothyroidism 5. History of hepatitis-B and has been on tenofovir 6. Hypertension 7. High alpha-fetoprotein Plan/Recommendation I have talked to the IR and [facility] and the patient could be treated with intra arterial atrium as an outpatient. The patient is advised to see me in the office and then I will make arrangements for him to go to [facility] Plan discussed with: Patient, Son RAYSHAWNDEZ MD Jun 03, 2024 08:57
[2024-06-03] MEDS: InsuLIN REG 1unit/0.01ml Soln (100units/ml) SC SCH (10:03)
--- NOTE | 2024-06-03 12:09 | DVHPN2 ---
Progress Note Date Seen: Jun 03, 2024 Medical Necessity Reason Pt with a Central, PICC or Fol: No Subjective Patient reports: No new complaints Other Systems: Patient seen and examined by myself today in follow-up Objective vital signs Vital Sign Date Time Temp Pulse Resp B/P (MAP) Pulse Ox O2 Delivery O2 Flow Rate FiO2 06/03/24 10:00 96 Room Air* 0 21 06/03/24 09:00 97.9 63 17 114/43 (66) 97.9 Total Intake and Output 06/02/24 06/02/24 06/03/24 15:00 23:00 07:00 Intake Total 300 ml 2221 ml 330 ml Output Total 300 ml 425 ml Balance 300 ml 1921 ml -95 ml medications Current Medications Medications Dose Ordered Sig/Harlan Route Start Time Stop Time Status Last Admin Dose Admin Acetaminophen/ Hydrocodone Bitart 1 tab Q4HP PRN PO 05/31/24 06:45 Ondansetron HCl 4 mg Q4HP PRN IV 05/31/24 06:45 Acetaminophen 650 mg Q6HP PRN PO 05/31/24 06:45 Morphine Sulfate 2 mg Q4HPRN PRN IV 05/31/24 06:45 Piperacillin Sod/ Tazobactam Sod 100 ml @ 25 mls/hr Q8H IV 06/01/24 03:00 06/03/24 10:05 25 MLS/HR Diagnostic Test (Pha) 1 strip IQ4HR 06/01/24 04:00 06/03/24 11:06 1 STRIP Dextrose 50 ml UD PRN IV 06/01/24 00:30 Pantoprazole Sodium 40 mg BID IV 06/02/24 22:00 06/02/24 22:19 40 MG Sucralfate 1 gm BID@0600,2200 PO 06/02/24 22:00 06/03/24 06:07 1 GM Insulin Human Regular ACHS SC 06/03/24 11:30 06/03/24 10:03 3 UNITS Examination: NECK:Abnormal, CVS:Normal, MSK:Normal laboratory and microbiology Laboratory Tests 06/03/24 06:21 Test 06/03/24 06:21 Range/Units Serum Glucose 54 L 74-106 mg/dL Problem List/Assessment/Plan Problem List/Assessment/Plan JOHN superimposed on CKD secondary to hemodynamic mediated, FeNa > 2% Severe anemia due to blood loss GI bleeding DM II CKD IIIb HTN Hypernatremia due to dehydration REC: Kidney function stabilize Chronic Kidney Disease stage 4 Increased UOP Strict I&O's I agree with hypotonic IVF hydration PRBC transfusion prn BP control GI on board Will continue to follow Plan discussed with: Patient CC Plasma Assessment Blood Product Administration S: [id number] LINDA BACON MD Jun 03, 2024 12:08
[2024-06-03] MEDS ORDERED: SUCR1SUS26 PO (15:19)
[2024-06-03] MEDS ORDERED: PANT40TA2 PO (15:19)
[2024-06-03] MEDS ORDERED: AMOX500T3 PO (15:19)
[2024-06-03] MEDS ORDERED: CLAR1TAB21 PO (15:19)
--- NOTE | 2024-06-03 15:28 | DVHDS2 ---
Discharge Summary Date of Admission May 31, 2024 at 06:42 Date of Discharge: Jun 03, 2024 Labs/Diagnostic Data: Laboratory Results Test 06/03/24 11:03 06/03/24 06:21 06/01/24 21:30 06/01/24 13:12 POC Glucose 158 mg/dl (70-106) White Blood Count 4.7 10^3/uL (4.4-10.8) Red Blood Count 2.49 10^6/uL (4.5-5.90) Hemoglobin 8.0 g/dL (13.5-17.5) Hematocrit 23.5 % (41.0-53.0) Mean Corpuscular Volume 94.4 fL (80.0-100.0) Mean Corpuscular Hemoglobin 32.0 pg (28.0-32.0) Mean Corpuscular Hemoglobin Concent 33.9 g/dL (32.0-36.0) Red Cell Distribution Width 17.0 % (11.8-14.3) Platelet Count 97 10^3/uL (140-450) Mean Platelet Volume 8.2 fL (6.9-10.8) Neutrophils (%) (Auto) 69.4 % (37.0-80.0) Lymphocytes (%) (Auto) 18.1 % (10.0-50.0) Monocytes (%) (Auto) 8.0 % (0.0-12.0) Eosinophils (%) (Auto) 3.9 % (0.0-7.0) Basophils (%) (Auto) 0.6 % (0.0-2.0) Neutrophils # (Auto) 3.3 10 ^3/uL (1.6-8.6) Lymphocytes # (Auto) 0.9 10 ^3/uL (0.4-5.4) Monocytes # (Auto) 0.4 10 ^3/uL (0-1.3) Eosinophils # (Auto) 0.2 10 ^3/uL (0-0.8) Basophils # (Auto) 0 10 ^3/uL (0-0.2) Nucleated Red Blood Cells 0.7 % Sodium Level 145 mmol/L (136-145) Potassium Level 3.6 mmol/L (3.5-5.1) Chloride Level 113 mmol/L (98-107) Carbon Dioxide Level 24 mmol/L (20-31) Anion Gap 8 (5-15) Blood Urea Nitrogen 27 mg/dL (9-23) Creatinine 2.61 mg/dL (0.700-1.30) Glomerular Filtration Rate Calc 25 mL/min (>90) BUN/Creatinine Ratio 10.3 (10.0-20.0) Serum Glucose 54 mg/dL (74-106) Calcium Level 7.8 mg/dL (8.7-10.4) Total Bilirubin 0.8 mg/dL (0.2-1.0) Aspartate Amino Transferase (AST) 79 U/L (13-40) Alanine Aminotransferase (ALT) 52 U/L (7-40) Alkaline Phosphatase 135 U/L (46-116) Total Protein 4.8 g/dL (5.7-8.2) Albumin 2.9 g/dL (3.2-4.8) Urine Creatinine 64.58 mg/dL (30.0-125.0) Urine Sodium 106 mmol/L (40-220) Urine Total Protein 19.6 mg/dL (1-14) Urine Opiates Screen Neg (NEGATIVE) Urine Fentanyl Screen Neg (NEGATIVE) Urine Barbiturates Screen Neg (NEGATIVE) Urine Phencyclidine Screen Neg (NEGATIVE) Urine Amphetamines Screen Neg (NEGATIVE) Urine Benzodiazepines Screen Neg (NEGATIVE) Urine Cocaine Screen Neg (NEGATIVE) Urine Cannabinoids Screen Neg (NEGATIVE) Lactic Acid Level 2.4 mmol/L (0.4-2.0) Test 06/01/24 12:00 05/31/24 16:46 05/31/24 05:28 Ammonia < 10 umol/L (11-32) Plasma/Serum Blood Alcohol < 3.0 mg/dL (<10) Urine Color Light-yellow (Yellow) Urine Clarity Clear (Clear) Urine pH 5.0 (5.0-9.0) Urine Specific [place] 1.014 (1.001-1.035) Urine Protein Negative (Negative) Urine Ketones 1+ (Negative) Urine Blood Negative /uL (Negative) Urine Nitrite Negative (Negative) Urine Bilirubin Negative (Negative) Urine Urobilinogen Normal mg/dL (Negative) Urine Leukocyte Esterase Negative /uL (Negative) Urine RBC <1 /hpf (0 - 3) Urine WBC <1 /hpf (0 - 3) Urine Squamous Epithelial Cells None seen /hpf (<5) Urine Bacteria Few /hpf (None Seen) Urine Hyaline Casts Few /lpf (0 - 2) Urine Glucose 2+ mg/dL (Normal) Platelet Estimate Adequate Anisocytosis (manual) Slight Microcytosis Slight Macrocytosis Slight Prothrombin Time 13.0 sec (9.3-11.8) Prothrombin Time INR 1.25 (0.9-1.15) Activated Partial Thromboplast Time 23.4 SEC (24.5-34.5) Lipase 134 U/L (12-53) Other Laboratory Tests 06/03/24 06:21 Brief Hx & Hospital Course: 73 old male with past medical history of hypertension, hyperlipidemia, diabetes, CHF, anemia, blood transfusions, CVA, liver disease, hepatitis, thyroid disease, and cholelithiasis who presents to the ED today for coughing up blood x2 and hematemesis along with blood in his stool x2 days. Per son Hector patient has been having uncontrollable bowel movements the last 2 days and son noted that there was blood in the stool. Patient presenting with acute upper GI bleed with melanotic stools. He was also confused for the acute toxic metabolic encephalopathy. Patient has severe anemia acute blood loss anemia with hemoglobin in the 3. Also has lactic acidosis. All conditions are improving with 3 units PRBC and started Protonix drip, NPO status with aspiration precautions. Patient also given slow IV fluids with some bolus IV fluids.. Patient's mental status also improves after transfusions. EGD done on 06/02 showing prepyloric antral polypoid fold, mild gastropathy, proximal stomach with superficial AVM, sliding-type hiatal hernia, minimal erosive esophagitis. GI recommends Protonix p.o. 40 b.i.d. and Carafate 1 g p.o. b.i.d., biopsies taken will be followed up with GI outpatient. Other issues during stay include hyperkalemia controlled with insulin, diabetes hyperglycemia controlled with aggressive sliding scale insulin q.4 hours,. It is noted that he has had EGDs and biopsies in the past. 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 Patient also had gastric biopsies in past for prior EGDs, 1 of which showing rare H pylori present, no treatment was given, we will be given treatment at discharge with close follow up with GI. Diagnosis: Melena/ upper GI bleed, stable;, ABLA;, gastric AVM disease; Hyplori infection untreated; liver mass showing hepatocellular carcinoma, moderately differentiated; DM with hyperglycemia; hypothyroid; lactic acidosis, resolved; HBV ongoing treatment; HTN; chronic Anemia due to GI blood loss; CHF; hyperkalemia, resolved; elevated LFTs; CKD 4; CVA history Discharge plan - oral protonix 40mg 2x/day - carafate 1g po 2x/day - amoxicillin 2tabs 2x/day (ie 1000mg 2x/day) - for x14 days - clarithromycin 500mg 2x/day - for x14 days - full liquid diet x1 week, and advance to mechanical soft (low carbohydrate) thereafter. - stop told protonix or omeprazole. - f/u with GI to follow GI bleed and Hpylori treatment - follow up with Nephrology for CKD - f/u with oncology for ongoing treatment for liver mass - continue other home medications. Visitation and planning required 35 minutes Condition at Discharge: Guarded Final Diagnosis/Problems List Melena/ upper GI bleed, stable;, ABLA;, gastric AVM disease; Hyplori infection untreated; liver mass showing hepatocellular carcinoma, moderately differentiated; DM with hyperglycemia; hypothyroid; lactic acidosis, resolved; HBV ongoing treatment; HTN; chronic Anemia due to GI blood loss; CHF; hyperkalemia, resolved; elevated LFTs; CKD 4; CVA history Discharge Disposition: Home Discharge Instruct/Medications Diet: See Comment Diet comment: - full liquid diet x1 week, and advance to mechanical soft (low carbohydrate) thereafter. Activity: No Restrictions, As Tolerated Follow Up/Referral: as below Medications: as below Discharge Statement: "Patient was advised to return to the ER or call 911 if any headaches, dizziness, shortness of breath, chest pain, abdominal pain, bleeding, fevers, or worsening of medical condition. Patient was counseled about treatment plan, medications, possible side effects, patientverbalized understanding. All questions were answered to the best of my ability. This discharge took greater then 30 minutes in planning, reviewing documentation, counseling the patient, and discussing with other team members." ASSESSMENT ASSESSMENT Assessment Melena/ upper GI bleed, stable;, ABLA;, gastric AVM disease; Hyplori infection untreated; liver mass showing hepatocellular carcinoma, moderately differentiated; DM with hyperglycemia; hypothyroid; lactic acidosis, resolved; HBV ongoing treatment; HTN; chronic Anemia due to GI blood loss; CHF; hyperkalemia, resolved; elevated LFTs; CKD 4; CVA history Date of Service: Jun 03, 2024 Billing Provider: JOSE OCASIO MD Common Visit Codes: 56674-BZE/OBS DISCH DAY >30min JOSE OCASIO MD Jun 03, 2024 15:28
--- NOTE | 2024-06-03 18:07 | DVHPN2 ---
Progress Note Date Seen: Jun 03, 2024 Resident Creating Document: LOGAN TUCKER RESIDENT Medical Necessity Reason Pt with a Central, PICC or Fol: No Medical Necessity Reason Stable from GI Stand point Subjective Review of Systems Patient seen and examine Not in any acute distress. Hgb /HCT is table. Patient can follow with the GI clinic and with DR. Nunn's office as well Objective vital signs Vital Sign Date Time Temp Pulse Resp B/P (MAP) Pulse Ox O2 Delivery O2 Flow Rate FiO2 06/03/24 17:37 97.8 59 18 99 06/03/24 12:46 133/54 (80) 06/03/24 10:00 Room Air* 0 21 Total Intake and Output 06/02/24 06/02/24 06/03/24 15:00 23:00 07:00 Intake Total 300 ml 2221 ml 330 ml Output Total 300 ml 425 ml Balance 300 ml 1921 ml -95 ml medications Current Medications Medications Dose Ordered Sig/Harlan Route Start Time Stop Time Status Last Admin Dose Admin Acetaminophen/ Hydrocodone Bitart 1 tab Q4HP PRN PO 05/31/24 06:45 Ondansetron HCl 4 mg Q4HP PRN IV 05/31/24 06:45 Acetaminophen 650 mg Q6HP PRN PO 05/31/24 06:45 Morphine Sulfate 2 mg Q4HPRN PRN IV 05/31/24 06:45 Piperacillin Sod/ Tazobactam Sod 100 ml @ 25 mls/hr Q8H IV 06/01/24 03:00 06/03/24 10:05 25 MLS/HR Diagnostic Test (Pha) 1 strip IQ4HR 06/01/24 04:00 06/03/24 11:06 1 STRIP Dextrose 50 ml UD PRN IV 06/01/24 00:30 Pantoprazole Sodium 40 mg BID IV 06/02/24 22:00 06/02/24 22:19 40 MG Sucralfate 1 gm BID@0600,2200 PO 06/02/24 22:00 06/03/24 06:07 1 GM Insulin Human Regular ACHS SC 06/03/24 11:30 06/03/24 10:03 3 UNITS Examination General examination- Moderately built and nourished, in no acute distress, alert and oriented. HEENT: PEER[place], No jaundice Chest: S1-S2 audible, rate and rhythm regular, no murmur Lung: CTAB, no wheeze or rhonchi Abdomen: Nondistend, BS+, nontenderness, no organomegaly Musculoskeletal: no acute joint swelling or tenderness Lower extremity: no leg edema Neurological: cranial nerves intact, no acute dysarthria or dysphagia Psychiatry-- Normal mood and affect Skin- no acute rash or purpura laboratory and microbiology Laboratory Tests 06/03/24 06:21 Test 06/03/24 06:21 Range/Units Serum Glucose 54 L 74-106 mg/dL Problem List/Assessment/Plan Problem List/Assessment/Plan (1) Symptomatic anemia EGD showed --> 1 persistent pre-pyloric antral polypoid fold which appeared inflammatory with some central erosions -->2. Mild gastropathy involving the proximal stomach with a superficial AVM noted in the cardia --> 3. 1-2 cm sliding-type hiatal hernia with minimal grade a erosive esophagitis --> 4.Follow up at the GI clinic (2) Shock (3) GI bleed (4) Lactic acidosis (5) Acute kidney failure (6) Hepatitis B (7) Liver mass --> biopsy showed Hepatocellular carcinoma --> Follow with Dr. Nunn (8) Hyperkalemia (9) Elevated liver enzymes PLAN Stable for Discharge Continue protonix 40mg bid Follow up with Dr. Nunn Goal of care discussed for more than 25 minutes Case and plan discussed with Dr. Martin Thank you for allowing us to participate in the care of this patient. Please call if you have any questions or concerns. Plan discussed with: Patient Dietary Evaluation Review Comments: 1. Encourage and monitor PO intakes to meet 75% of his needs 2. If not on HD, advance diet to Renal Specific-60g protein restriction, 2gNa 3K, low Phose diet 3. If on dialysis, advance diet to Renal standard, 2gna 3 k, low phos diet. Expected Outcomes/Goals: improved nuttritoin related lab values, avoid wt loss. CC Plasma Assessment Blood Product Administration S: [id number] LOGAN TUCKER RESIDENT Jun 03, 2024 18:07
== END 2024-06-03 19:18 | disposition home or self-care (01) | DRG 380 ==
LOC: ER 04:36 → EDBD 04:36 → TELE 06:42 → TELE-EAST 23:25
PROVIDERS: ADMIT Student in an Organized Health Care Education/Training Program; ATTEND Student in an Organized Health Care Education/Training Program
PROC: 30233N1 Transfusion of Nonautologous Red Blood Cells into Peripheral Vein, Percutaneous Approach (ICD-10-PCS; 2024-05-31)
PROC: 30233K1 Transfusion of Nonautologous Frozen Plasma into Peripheral Vein, Percutaneous Approach (ICD-10-PCS; 2024-05-31)
PROC: 0DB78ZX Excision of Stomach, Pylorus, Via Natural or Artificial Opening Endoscopic, Diagnostic (ICD-10-PCS; 2024-06-02)
PROC: 0DB68ZX Excision of Stomach, Via Natural or Artificial Opening Endoscopic, Diagnostic (ICD-10-PCS; 2024-06-02)
PROC: 0DB98ZX Excision of Duodenum, Via Natural or Artificial Opening Endoscopic, Diagnostic (ICD-10-PCS; principal; 2024-06-02 09:00)
DX: K22.11 Ulcer of esophagus with bleeding (principal); G92.8 Other toxic encephalopathy; B19.10 Unspecified viral hepatitis B without hepatic coma; R57.9 Shock, unspecified; E87.20 Acidosis, unspecified; N17.9 Acute kidney failure, unspecified; D62 Acute posthemorrhagic anemia; C22.0 Liver cell carcinoma; I13.0 Hypertensive heart and chronic kidney disease with heart failure and stage 1 through stage 4 chronic kidney disease, or unspecified chronic kidney disease; N18.4 Chronic kidney disease, stage 4 (severe); B15.9 Hepatitis A without hepatic coma; E87.0 Hyperosmolality and hypernatremia; K31.811 Angiodysplasia of stomach and duodenum with bleeding; K29.71 Gastritis, unspecified, with bleeding; K80.20 Calculus of gallbladder without cholecystitis without obstruction; N40.0 Benign prostatic hyperplasia without lower urinary tract symptoms; I50.9 Heart failure, unspecified; E11.65 Type 2 diabetes mellitus with hyperglycemia; E78.5 Hyperlipidemia, unspecified; K64.8 Other hemorrhoids; E86.0 Dehydration; K31.9 Disease of stomach and duodenum, unspecified; E11.22 Type 2 diabetes mellitus with diabetic chronic kidney disease; E87.5 Hyperkalemia; K44.9 Diaphragmatic hernia without obstruction or gangrene; E03.9 Hypothyroidism, unspecified; K74.60 Unspecified cirrhosis of liver; Z79.899 Other long term (current) drug therapy; Z79.4 Long term (current) use of insulin; Z86.73 Personal history of transient ischemic attack (TIA), and cerebral infarction without residual deficits; Z85.05 Personal history of malignant neoplasm of liver; B96.81 Helicobacter pylori [H. pylori] as the cause of diseases classified elsewhere
CPT/HCPCS: 36415; 74176; 80048; 80053; 80307; 80320; 81001; 82140; 82570; 82962; 83605; 83690; 84156; 84300; 85025; 85610; 85730; 86850; 86900; 86901; 86920; 93005; 94640; 96365; 96375; 99291; G0378; J1815; J2250; J2405; J2470; J2543; J2704

== ENCOUNTER 2024-08-10 20:31 | Inpatient (IN) | payer OTHER ==
[~2024-08-10] VITALS: Ht 167.6 cm; Wt 68.1 kg
[~2024-08-10 20:31] MED LIST changes: +AMOX500T3 PO; +CLAR1TAB21 PO; -OMEP1CAP70 PO; -PANT40T PO; +SUCR1SUS26 PO
--- NOTE | 2024-08-10 21:02 | ECG ---
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
[2024-08-10 21:22] VITALS: PULSE 84; RESP 18; O2SAT 99
[2024-08-10 21:39] LABS: Basophils # (auto) 0 10 ^3/uL (0-0.2); Eosinophils # (auto) 0.1 10 ^3/uL (0-0.8); Hematocrit 10.5 % (41.0-53.0); Mean Corpuscular Hemoglobin 29.7 pg (28.0-32.0); Mean Corpuscular Hgb Conc. 29.1 g/dL (32.0-36.0); Monocytes # (auto) 0.4 10 ^3/uL (0-1.3); Neutrophils # (auto) 4.2 10 ^3/uL (1.6-8.6); Red Cell Distribution Width 18.3 % (11.8-14.3); White Blood Cell 5.7 10^3/uL (4.4-10.8)
[2024-08-10 21:40] LABS: Basophils % (auto) 0.6 % (0.0-2.0); Eosinophils % (auto) 1.1 % (0.0-7.0); Lymphocytes % (auto) 17.6 % (10.0-50.0); Mean Corpuscular Volume 102.1 fL (80.0-100.0); Monocytes % (auto) 6.7 % (0.0-12.0); Nucleated Red Blood Cells % 0.3 %; Platelet Count (auto) 191 10^3/uL (140-450); Red Blood Cells 1.02 10^6/uL (4.5-5.90)
--- NOTE | 2024-08-10 21:41 | ED.PDOC ---
HPI (NEURO) HPI Comments 74y M who presents to the ED via EMS for chief complaint of generalized weakness. Per EMS,pt is [place] speaking and EMS states at residence, pt son states has been unsteady on his feet for the past few days with multiple falls. Pt son told EMS the last time this happened, pt came to the hospital and was given blood transfusion and discharged. Pt in the ED, noted to be yellow in color and complexion with a probable history of liver disease. Pt in the ED, with no note signs of injury including bruises, contusions or any other signs of injury. Pt otherwise denies any other symptoms at this time. 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 Information Source: Emergency Med Personnel Mode of Arrival: EMS Brought in by: EMS Severity: Moderate Dizziness/Weakness Severity: Unable to do activities Headache Severity: None Timing: Days Duration: Since onset Prehospital treatment: None Onset: At rest Circumstances: Spontaneous Symptoms: Faintness, Near syncope, Imbalance, Weakness History of: Anemia Past Medical History PAST MEDICAL HISTORY: CHF, CVA, DM, Gallstones, HTN, Liver, Thyroid Surgical History: Denies all surgeries Family History Family History: Reviewed,noncontributory to illness Social History Smoker: Non-Smoker Alcohol: Denies ETOH Use Drugs: Denies Drug Use Lives In: Home Constitutional: reports: fatigue, malaise, weakness; denies: chills, diaphoresis, fever, sweats, others EENTM: denies: blurred vision, double vision, ear bleeding, ear discharge, ear drainage, ear pain, ear ringing, eye pain, eye redness, hearing loss, mouth pain, mouth swelling, nasal discharge, nose bleeding, nose congestion, nose pain, photophobia, tearing, throat pain, throat swelling, voice changes, others Respiratory: denies: cough, hemoptysis, orthopnea, SOB at rest, shortness of breath, SOB with excertion, stridor, wheezing, others Cardiovascular: denies: chest pain, dizzy spells, diaphoresis, Dyspnea on exertion, edema, irregular heart beat, left arm pain, lightheadedness, palpitations, PND, syncope, others Gastrointestinal: denies: abdomen distended, abdominal pain, blood streaked bowels, constipated, diarrhea, dysphagia, difficulty swallowing, hematemesis, melena, nausea, poor appetite, poor fluid intake, rectal bleeding, rectal pain, vomiting, others Genitourinary: denies: burning, dysuria, flank pain, frequency, hematuria, incontinence, penile discharge, penile sore, pain, testicle pain, testicle swelling, urgency, others Neurological: reports: weakness; denies: dizziness, fainting, headache, left sided numbness, left sided weakness, numbness, paresthesia, pre-existing deficit, right sided numbness, right sided weakness, seizure, speech problems, tingling, tremors, others Musculoskeletal: denies: back pain, gout, joint pain, joint swelling, muscle pain, muscle stiffness, neck pain, others Integumetry: denies: bruises, change in color, change in hair/nails, dryness, laceration, lesions, lumps, rash, wounds, others Allergic/Immunocompromised: denies: Difficulty Healing, Frequent Infections, Hives, Itching, others Hematologic/Lymphatic: denies: anemia, blood clots, easy bleeding, easy bruising, swollen glands, others Endocrine: denies: excessive hunger, excessive sweating, excessive thirst, excessive urination, flushing, intolerance to cold, intolerance to heat, unexplained weight gain, unexplained weight loss, others Psychiatric: denies: anxiety, bipolar disorder, depression, hopeless, panic disorder, schizophrenia, sleepless, suicidal, others All Other Systems: Reviewed and Negative Physical Exam General Appearance: Mild Distress (Patient does appear to be in distress but is definitely an ill 74-year-old male in poor overall health.), Normal HEENT: Pharynx Normal, TMs Normal, Other ( Patient displays mild bilateral icterus) Neck: Full Range of Motion, Non-Tender, Normal, Normal Inspection Respiratory: Chest Non-Tender, Lungs Clear, No Accessory Muscle Use, No Respiratory Distress, Normal Breath Sounds Cardiovascular: No Edema, No JVD, No Murmur, No Gallop, Normal Peripheral Pulses, Regular Rate/Rhythm Breast Exam: Deferred Gastrointestinal: No Organomegaly, Non Tender, No Pulsatile Mass, Normal Bowel Sounds, Soft Genitalia: Deferred Pelvic: Deferred Rectal: Deferred Extremities: NOT DONE Neurologic: NOT DONE Cerebellar Function: NOT DONE Reflexes: NOT DONE Skin: Jaundice, Pallor Lymphatic: No Adenopathy Was a procedure done? Was a procedure done?: No Differential Diagnosis (SZ) General Weakness: Anemia, Dehydration, Electrolyte imbalance, Encephalopathy, Other (liver disease, cirrhosis, hepatic encepalopathy, hyperammonemia, akf) X-Ray, Labs, Meds, VS Vital Signs Date Time Temp Pulse Resp B/P (MAP) Pulse Ox O2 Delivery O2 Flow Rate FiO2 08/10/24 21:22 98.2 84 18 141/30 (67) 99 98.2 08/10/24 21:22 84 18 99 Room Air* 0 21 08/10/24 20:34 87 08/10/24 20:31 98.7 95 18 163/43 (83) 98 Lab Test 08/10/24 21:44 08/10/24 21:20 Range/Units Urine Color Pending Urine Clarity Pending Urine pH Pending Urine Specific [place] Pending Urine Protein Pending Urine Ketones Pending Urine Blood Pending Urine Nitrite Pending Urine Bilirubin Pending Urine Urobilinogen Pending Urine Leukocyte Esterase Pending Urine RBC Pending Urine Microscopic WBC Pending Urine Squamous Epithelial Cells Pending Urine Bacteria Pending Urine Glucose Pending White Blood Count Pending Red Blood Count Pending Hemoglobin Pending Hematocrit Pending Mean Corpuscular Volume Pending Mean Corpuscular Hemoglobin Pending Mean Corpuscular Hemoglobin Concent Pending Red Cell Distribution Width Pending Platelet Count Pending Mean Platelet Volume Pending Neutrophils (%) (Auto) Pending Lymphocytes (%) (Auto) Pending Monocytes (%) (Auto) Pending Basophils (%) (Auto) Pending Neutrophils # (Auto) Pending Lymphocytes # (Auto) Pending Monocytes # (Auto) Pending Prothrombin Time Pending Prothrombin Time INR Pending Activated Partial Thromboplast Time Pending Sodium Level 138 136-145 mmol/L Potassium Level 5.5 H 3.5-5.1 mmol/L Chloride Level 111 H 98-107 mmol/L Carbon Dioxide Level 15 L 20-31 mmol/L Anion Gap 12 5-15 Blood Urea Nitrogen 72 H 9-23 mg/dL Creatinine 2.93 H 0.700-1.30 mg/dL Glomerular Filtration Rate Calc 22 >90 mL/min BUN/Creatinine Ratio 24.6 H 10.0-20.0 Serum Glucose 287 H 74-106 mg/dL POC Glucose 290 H 70-106 mg/dl Calcium Level 8.4 L 8.7-10.4 mg/dL Magnesium Level 3.0 H 1.6-2.6 mg/dL Total Bilirubin 0.5 0.2-1.0 mg/dL Aspartate Amino Transferase (AST) 97 H 13-40 U/L Alanine Aminotransferase (ALT) 26 7-40 U/L Alkaline Phosphatase 84 46-116 U/L Troponin I High Sensitivity 15 </=54 ng/L B-Type Natriuretic Peptide 172.69 0-100 pg/mL Total Protein 6.1 5.7-8.2 g/dL Albumin 4.0 3.2-4.8 g/dL Lipase 74 H 12-53 U/L X-Ray, Labs, Meds, VS Comment All studies performed in the ED were reviewed by me personally. Multiple stud ies were pending at time of this note. X-rays unremarkable for any acute intrapulmonary concerns. Laboratories revealed a critical anemia as well as hyperglycemia and what appears to be acute on chronic renal injury. Patient will be admitted for management of his critical anemia as well as additional concerns when returned. Time of 1ST Reevaluation: 22:17 Reevaluation 1ST: Improved Consultation: PCP Patient Education/Counseling: Diagnosis, Treatment Family Education/Counseling: Diagnosis, Treatment, No Family Present Departure 1 Departure Time of Disposition: 22:19 Impression: Primary Impression: Severe anemia Additional Impressions: [id number] kidney injury Hyperglycemia due to diabetes mellitus Disposition: ADMITTED INPATIENT Condition: Fair Discharged With: Self Critical Care Note Critical Care Time?: Yes (45 min-critical care time only) Critical care comment: Due to the high probability of a clinically significant and possibly life- threatening deterioration, the patient required my highest level of preparedness to intervene emergently and therefore, I personally provided 45 minutes of critical care time exclusive of time spent on separate billable procedures. This critical care time includes, but is not limited to, obtaining additional history, re-examination of the patient, re-examination of pulse oximetry as well as ordering and reviewing of studies, arranging urgent treatment with the development of a management plan and evaluation of the patient's response to treatment as well as frequent reassessments and discussions with other providers. Stability Stability form required: No Heart Score Heart Score: Heart Score Response (Comments) Value History N/A 0 EKG N/A 0 Age N/A 0 Risk Factors N/A 0 Troponin N/A 0 Total 0 I personally scribed for MAGGIE MCCRARY PAC ([email or web address]) on 08/10/24 at 21:41. Pamela ctronically submitted by Pee Roca ([email or web address]). MAGGIE MCCRARY PAC Aug 10, 2024 21:41
--- NOTE | 2024-08-10 21:43 | DVH ---
CHEST RADIOGRAPH Indication: Shortness of breath Technique: Single frontal view of the chest was obtained Comparison: XY CHEST PORTABLE on DOS: 02/25/24, XY CHEST PORTABLE on DOS: 06/08/23 FINDINGS: Lines and Tubes: None Lungs: No focal consolidation. Pleura: No effusion. No pneumothorax. Cardiomediastinal contours: Unremarkable Bones: No acute osseous abnormality. IMPRESSION: 1. No acute cardiopulmonary disease. 2. No significant change from 02/25/2024
[2024-08-10 22:01] LABS: Alanine Aminotransferase 26 U/L (7-40); Alkaline Phosphatase 84 U/L (46-116); Anion Gap 12 (5-15); BUN/Creatinine Ratio 24.6 (10.0-20.0); Bilirubin, Total 0.5 mg/dL (0.2-1.0); Sodium 138 mmol/L (136-145); Total Protein 6.1 g/dL (5.7-8.2)
[2024-08-10 22:05] LABS: Aspartate Aminotransferase 97 U/L (13-40); Blood Urea Nitrogen 72 mg/dL (9-23); Calcium 8.4 mg/dL (8.7-10.4); Carbon Dioxide 15 mmol/L (20-31); Chloride 111 mmol/L (98-107); Glucose 287 mg/dL (74-106); Lipase 74 U/L (12-53); Potassium 5.5 mmol/L (3.5-5.1)
[2024-08-10 22:07] LABS: Urine Bacteria FEW /hpf (None Seen); Urine Blood Negative /uL (Negative); Urine Clarity Clear (Clear); Urine Color Light-Yellow (Yellow); Urine Protein, UAD TRACE (Negative); Urine Specific Gravity 1.012 (1.001-1.035); Urine Squamous Epithelial Cell FEW /hpf (<5); Urine Urobilinogen Normal (Negative); Urine WBC 1 /HPF (0-3)
[2024-08-10 22:11] LABS: INR 1.21 (0.9-1.15); Partial Thromboplastin Time 25.1 SEC (24.5-34.5); Prothrombin Time 12.6 sec (9.3-11.8)
[2024-08-10 23:12] VITALS: BP 133/39; PULSE 77; RESP 16; TEMP 98.2
[2024-08-10 23:40] VITALS: BP 130/40; PULSE 78; RESP 16; TEMP 98.1
[2024-08-11] VITALS (17 sets, daily range): BP systolic 126–157; BP diastolic 28–64; PULSE 52–70; RESP 12–18; TEMP 97.3–98.3; O2SAT 100
[2024-08-11 05:22] LABS: Basophils # (auto) 0 10 ^3/uL (0-0.2); Eosinophils # (auto) 0.1 10 ^3/uL (0-0.8); Hematocrit 16.6 % (41.0-53.0); Lymphocytes # (auto) 1.2 10 ^3/uL (0.4-5.4); Monocytes # (auto) 0.4 10 ^3/uL (0-1.3); Neutrophils # (auto) 2.5 10 ^3/uL (1.6-8.6); Neutrophils % (auto) 59.2 % (37.0-80.0); Nucleated Red Blood Cells % 0.2 %; White Blood Cell 4.2 10^3/uL (4.4-10.8)
[2024-08-11 05:26] LABS: Basophils % (auto) 0.4 % (0.0-2.0); Eosinophils % (auto) 1.9 % (0.0-7.0); Lymphocytes % (auto) 29.6 % (10.0-50.0); Mean Corpuscular Hemoglobin 30.5 pg (28.0-32.0); Mean Corpuscular Hgb Conc. 33.1 g/dL (32.0-36.0); Mean Corpuscular Volume 92.2 fL (80.0-100.0); Monocytes % (auto) 8.9 % (0.0-12.0); Platelet Count (auto) 130 10^3/uL (140-450); Red Cell Distribution Width 16.9 % (11.8-14.3)
[2024-08-11 05:29] LABS: Hemoglobin 5.5 g/dL (13.5-17.5)
[2024-08-11 05:49] LABS: Potassium 4.6 mmol/L (3.5-5.1); Sodium 141 mmol/L (136-145)
[2024-08-11 05:50] LABS: Anion Gap 10 (5-15)
[2024-08-11 05:55] LABS: BUN/Creatinine Ratio 23.2 (10.0-20.0); Glucose 91 mg/dL (74-106)
[2024-08-11 06:30] LABS: Carbon Dioxide 17 mmol/L (20-31); Chloride 114 mmol/L (98-107)
[2024-08-11 06:31] LABS: Blood Urea Nitrogen 61 mg/dL (9-23); Calcium 8.4 mg/dL (8.7-10.4)
[2024-08-11] MEDS ORDERED: DOCUSATE SOD 100 MG CAP PO PRN (08:30)
[2024-08-11] MEDS ORDERED: ACETAMINOPHEN 325 MG TAB PO PRN (08:30)
[2024-08-11] MEDS ORDERED: MORPHINE SULFATE INJ 2 MG/ml SYRG IV PRN (08:30)
[2024-08-11] MEDS ORDERED: NITROGLYCERIN 0.4 MG SL TAB SL PRN (08:30)
[2024-08-11] MEDS ORDERED: HYDROcodone-ACET 5/325MG TAB PO PRN (08:30)
[2024-08-11] MEDS ORDERED: ONDANSETRON HCL 4 MG/2 ML VIAL IV PRN (08:30)
[2024-08-11] MEDS ORDERED: DEXTROSE (50%) 50ML SYRG IV PRN (09:30)
[2024-08-11] MEDS ORDERED: LOS25T PO (09:33)
--- NOTE | 2024-08-11 09:43 | DVHHP2 ---
History of Present Illness Reason for Visit: Generalized weakness History of Present Illness Dillan Geiger is a 74-year-old male with past medical history of hypertension, hyperlipidemia, CHF, diabetes, CVA with left sided weakness, cirrhosis, and anemia, came in due to generalized weakness. Patient's son states that he was becoming progressively weaker, and began falling, and states that is how he becomes when his hemoglobin is low so he brought him in. Patient was seen here in the hospital in May 2024 for similar complaint and received multiple units of blood and was followed by GI. Patient did have an EGD and colonoscopy in early May. 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) Heme/Onc: Anemia NOS Hepatobiliary: Cirrhosis Endocrine: Diabetes, Hypothyroidism Smoke: Quit ALCOHOL: none Drugs: None Lives: with Family Domestic Violence: Neg Review of Systems Constitutional: Yes: Weakness, Malaise; No: Fever, Chills, Sweats, Other Eyes: No: Pain, Vision change, Conjunctivae inflammation, Eyelid inflammation, Other, Redness ENT: No: Ear pain, Ear discharge, Nose pain, Nose discharge, Nose congestion, Mouth pain, Mouth swelling, Throat pain, Throat swelling, Other Respiratory: No: Cough, Dry, Shortness of breath, SOB with excertion, Wheezing, Hemoptysis, Pleuritic Pain, Sputum, Wheezing, Other Cardiovascular: No: Chest Pain, Palpitations, Orthopnea, Paroxysmal Noc. Dyspnea, Edema, Lt Headedness, Other Gastrointestinal: No: Nausea, Vomiting, Abdominal Pain, Diarrhea, Constipation, Melena, Hematochezia, Other Genitourinary: No Dysuria, No Frequency, No Incontinence, No Hematuria, No Retention, No Other Musculoskeletal: No: other, neck pain, shoulder pain, arm pain, back pain, hand pain, leg pain, foot pain Skin: No: Rash, Lesions, Jaundice, Bruising, Other Neurological: No: Weakness, Numbness, Incoordination, Change in speech, Confusion, Seizures, Other Allergies: Coded Allergies: NO KNOWN ALLERGIES (Unverified , 06/08/23) Exam Vital Signs Vital Signs Date Time Temp Pulse Resp B/P (MAP) Pulse Ox O2 Delivery O2 Flow Rate FiO2 08/11/24 06:00 54 14 131/42 (71) 100 08/11/24 02:45 98.1 98.1 08/10/24 21:22 Room Air* 0 21 General Appearance: Alert, Oriented X3, Cooperative, moderate distress HEENT: Atraumatic, PERRLA Respiratory: Clear to auscultation, Normal air movement Cardiovascular: Normal S1, Normal S2, Other (SB-SR) Abdominal: Normal bowel sounds, Soft Extremities: No clubbing, No cyanosis Skin: No rashes Neuro: Normal gait Psych/Mental Status: Mental status NL Labs/Xrays Labs Test 08/11/24 04:57 08/11/24 04:56 08/10/24 22:12 08/10/24 21:44 Range/Units White Blood Count 4.2 #L 4.4-10.8 10^3/uL Red Blood Count 1.80 L 4.5-5.90 10^6/uL Hemoglobin 5.5 #*L 13.5-17.5 g/dL Hematocrit 16.6 #L 41.0-53.0 % Mean Corpuscular Volume 92.2 # 80.0-100.0 fL Mean Corpuscular Hemoglobin 30.5 28.0-32.0 pg Mean Corpuscular Hemoglobin Concent 33.1 32.0-36.0 g/dL Red Cell Distribution Width 16.9 H 11.8-14.3 % Platelet Count 130 L 140-450 10^3/uL Mean Platelet Volume 8.4 6.9-10.8 fL Neutrophils (%) (Auto) 59.2 37.0-80.0 % Lymphocytes (%) (Auto) 29.6 10.0-50.0 % Monocytes (%) (Auto) 8.9 0.0-12.0 % Eosinophils (%) (Auto) 1.9 0.0-7.0 % Basophils (%) (Auto) 0.4 0.0-2.0 % Neutrophils # (Auto) 2.5 1.6-8.6 10 ^3/uL Lymphocytes # (Auto) 1.2 0.4-5.4 10 ^3/uL Monocytes # (Auto) 0.4 0-1.3 10 ^3/uL Eosinophils # (Auto) 0.1 0-0.8 10 ^3/uL Basophils # (Auto) 0 0-0.2 10 ^3/uL Nucleated Red Blood Cells 0.2 % Sodium Level 141 136-145 mmol/L Potassium Level 4.6 3.5-5.1 mmol/L Chloride Level 114 H 98-107 mmol/L Carbon Dioxide Level 17 L 20-31 mmol/L Anion Gap 10 5-15 Blood Urea Nitrogen 61 #H 9-23 mg/dL Creatinine 2.63 H 0.700-1.30 mg/dL Glomerular Filtration Rate Calc 25 >90 mL/min BUN/Creatinine Ratio 23.2 H 10.0-20.0 Serum Glucose 91 # 74-106 mg/dL Calcium Level 8.4 L 8.7-10.4 mg/dL Troponin I High Sensitivity 15 </=54 ng/L Urine Color Light-yellow Yellow Urine Clarity Clear Clear Urine pH 5.0 5.0-9.0 Urine Specific [place] 1.012 1.001-1.035 Urine Protein Trace H Negative Urine Ketones Negative Negative Urine Blood Negative Negative /uL Urine Nitrite Negative Negative Urine Bilirubin Negative Negative Urine Urobilinogen Normal Negative mg/dL Urine Leukocyte Esterase Negative Negative /uL Urine RBC <1 0 - 3 /hpf Urine Microscopic WBC 1 0-3 /HPF Urine Squamous Epithelial Cells Few <5 /hpf Urine Bacteria Few H None Seen /hpf Urine Glucose 3+ H Normal mg/dL Test 08/10/24 21:20 Range/Units Prothrombin Time 12.6 H 9.3-11.8 sec Prothrombin Time INR 1.21 H 0.9-1.15 Activated Partial Thromboplast Time 25.1 24.5-34.5 SEC POC Glucose 290 H 70-106 mg/dl Magnesium Level 3.0 H 1.6-2.6 mg/dL Total Bilirubin 0.5 0.2-1.0 mg/dL Aspartate Amino Transferase (AST) 97 H 13-40 U/L Alanine Aminotransferase (ALT) 26 7-40 U/L Alkaline Phosphatase 84 46-116 U/L B-Type Natriuretic Peptide 172.69 0-100 pg/mL Total Protein 6.1 5.7-8.2 g/dL Albumin 4.0 3.2-4.8 g/dL Lipase 74 H 12-53 U/L CHEST RADIOGRAPH FINDINGS: Lines and Tubes: None Lungs: No focal consolidation. Pleura: No effusion. No pneumothorax. Cardiomediastinal contours: Unremarkable Bones: No acute osseous abnormality. IMPRESSION: 1. No acute cardiopulmonary disease. 2. No significant change from 02/25/2024 Assessment/Plan Assessment/Plan Assessment: Severe anemia, Acute on chronic kidney injury, Hyperkalemia, Hypocalcemia, Liver cirrhosis possible, Hypertension, Diabetes, CHF, Hyperlipidemia, Plan: Admit to Tele, Transfuse PRBC for Hgb <7, GI consult, Send stool for occult blood, H&H after 3rd unit, Manage/Monitor H&H closely, Mange/Monitor electrolytes, IV hydration, IV Lasix, IV protonix BID, Accu checks Q AC&HS with sliding scale, Home medications reconciled, Plan discussed with: Patient My Orders Orders - CHAPINCITO HURLEY Procedure Category Date Status Time Admit ADMIT 08/11/24 Verified 08:27 Code Status CODE 08/11/24 Verified 08:27 0.9% Ns 1000 Ml PHA 08/11/24 Verified 08:30 Hydrocodone-Acet PHA 08/11/24 Verified 5/325mg Tab ([place] 08:30 Ondansetron Hcl PHA 08/11/24 Verified (Zofran) 08:30 Docusate Sodium PHA 08/11/24 Verified Capsule (Colace 08:30 Fall Risk Precautions MARIN 08/11/[address] 08:27 Complete Blood Count LAB 08/12/24 Verified 04:00 Comprehensive LAB 08/12/24 Verified Metabolic Panel 04:00 Condition: Serious MARIN 08/11/24 Verified 08:27 Acetaminophen Tablet PHA 08/11/24 Verified (Tylenol Tablet) 08:30 Clear Liq Diet DIET 08/11/24 Verified Breakfast Nitroglycerin PHA 08/11/24 Verified Sublingual (Ntrostat 08:30 Morphine Sulfate PHA 08/11/24 Verified Injection 08:30 Stat Ekg For Chest MARIN 08/11/24 Verified Pain 08:27 Notify Md Of Changes MARIN 08/11/24 Verified From Base 08:27 Oil Heat Technician For MARIN 08/11/24 Verified 24 Hours 08:27 Emergency Dysrhythmia MARIN 08/11/24 Verified Protocol 08:27 Rhythm Strips Once MARIN 08/11/24 Verified Every Shift 08:27 Oxygen By Nasal RT 08/11/24 Verified Cannula 08:27 Stool Occult Blood LAB 08/11/24 Verified 08:27 Date of Service: Aug 11, 2024 Billing Provider: CHAPINCITO HURLEY Common Visit Codes: [id number] INP/OBS CARE (HIGH) CHAPINCITO HURLEY Aug 11, 2024 09:42
[2024-08-11] MEDS: SODIUM CHLORIDE 0.9% 1,000 ML IV SCH (11:02)
[2024-08-11] MEDS: CALCIUM GLUC 1,000mg/50ml-NS 50 ML IV ONE (11:02)
[2024-08-11] MEDS: TAMSULOSIN HYDROCHLORIDE 0.4 MG CAP PO SCH (11:03)
[2024-08-11] MEDS: LOSARTAN POTASSIUM 25 MG TAB PO SCH (11:03)
[2024-08-11] MEDS: FUROSEMIDE 40 MG/4 ML VIAL IV ONE (11:03)
[2024-08-11] MEDS: InsuLIN REG 1unit/0.01ml Soln (100units/ml) SC SCH ×2 (11:15→22:03)
[2024-08-11] MEDS: ACCU-CHEK COMFORT CURVE STRIP VI SCH (11:15)
--- NOTE | 2024-08-11 13:36 | DVHINCON2 ---
GI Consult Consult Note GI consult note Date of Consultation: 08/11/2024 Chief Complaint: Question GI bleed Referring Physician: Dr. Thorpe H&P: 74-year-old male with PMH of hypertension, hyperlipidemia, CHF, diabetes, CVA with left-sided weakness, cirrhosis and anemia, presented to ER with generalized weakness. Patient was getting progressively weaker and was having falls, usually this happens when his hemoglobin is low and was brought in by his son. Patient hospitalized in May with similar symptoms. No melena or red blood in stool. No hematemesis SP colonoscopy May2024 with polyp removed, diagnosed as tubular adenoma SP EGD May2024 showed a persistent pre-pyloric antral polypoid fold which appear inflammatory with some central erosions and multiple biopsies taken Mild gastropathy involving the proximal stomach with a superficial AVM noted in the cardia. 1-2 cm sliding-type hiatal hernia with a minimal grade a erosive esophagitis. 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 Family History: Noncontributory Review of Systems: Constitutional: no fever, chill, weight loss Lung: no cough, no dyspnea with exertion Abdomen: see HPI Physical exam: General: NAD, AAOX3 Chest: lung buenrostro clear to auscultation Heart: RRR, no murmur Abdomen: non-distended, no tenderness to palpation, +BS Labs: Labs Test 08/11/24 11:14 08/11/24 10:00 08/11/24 04:57 08/11/24 04:56 Range/Units POC Glucose 81 70-106 mg/dl Lactic Acid Level 1.0 0.4-2.0 mmol/L White Blood Count 4.2 #L 4.4-10.8 10^3/uL Red Blood Count 1.80 L 4.5-5.90 10^6/uL Hemoglobin 5.5 #*L 13.5-17.5 g/dL Hematocrit 16.6 #L 41.0-53.0 % Mean Corpuscular Volume 92.2 # 80.0-100.0 fL Mean Corpuscular Hemoglobin 30.5 28.0-32.0 pg Mean Corpuscular Hemoglobin Concent 33.1 32.0-36.0 g/dL Red Cell Distribution Width 16.9 H 11.8-14.3 % Platelet Count 130 L 140-450 10^3/uL Mean Platelet Volume 8.4 6.9-10.8 fL Neutrophils (%) (Auto) 59.2 37.0-80.0 % Lymphocytes (%) (Auto) 29.6 10.0-50.0 % Monocytes (%) (Auto) 8.9 0.0-12.0 % Eosinophils (%) (Auto) 1.9 0.0-7.0 % Basophils (%) (Auto) 0.4 0.0-2.0 % Neutrophils # (Auto) 2.5 1.6-8.6 10 ^3/uL Lymphocytes # (Auto) 1.2 0.4-5.4 10 ^3/uL Monocytes # (Auto) 0.4 0-1.3 10 ^3/uL Eosinophils # (Auto) 0.1 0-0.8 10 ^3/uL Basophils # (Auto) 0 0-0.2 10 ^3/uL Nucleated Red Blood Cells 0.2 % Sodium Level 141 136-145 mmol/L Potassium Level 4.6 3.5-5.1 mmol/L Chloride Level 114 H 98-107 mmol/L Carbon Dioxide Level 17 L 20-31 mmol/L Anion Gap 10 5-15 Blood Urea Nitrogen 61 #H 9-23 mg/dL Creatinine 2.63 H 0.700-1.30 mg/dL Glomerular Filtration Rate Calc 25 >90 mL/min BUN/Creatinine Ratio 23.2 H 10.0-20.0 Serum Glucose 91 # 74-106 mg/dL Calcium Level 8.4 L 8.7-10.4 mg/dL Test 08/10/24 22:12 08/10/24 21:44 08/10/24 21:20 Range/Units Troponin I High Sensitivity 15 </=54 ng/L Urine Color Light-yellow Yellow Urine Clarity Clear Clear Urine pH 5.0 5.0-9.0 Urine Specific [place] 1.012 1.001-1.035 Urine Protein Trace H Negative Urine Ketones Negative Negative Urine Blood Negative Negative /uL Urine Nitrite Negative Negative Urine Bilirubin Negative Negative Urine Urobilinogen Normal Negative mg/dL Urine Leukocyte Esterase Negative Negative /uL Urine RBC <1 0 - 3 /hpf Urine Microscopic WBC 1 0-3 /HPF Urine Squamous Epithelial Cells Few <5 /hpf Urine Bacteria Few H None Seen /hpf Urine Glucose 3+ H Normal mg/dL Prothrombin Time 12.6 H 9.3-11.8 sec Prothrombin Time INR 1.21 H 0.9-1.15 Activated Partial Thromboplast Time 25.1 24.5-34.5 SEC Magnesium Level 3.0 H 1.6-2.6 mg/dL Total Bilirubin 0.5 0.2-1.0 mg/dL Aspartate Amino Transferase (AST) 97 H 13-40 U/L Alanine Aminotransferase (ALT) 26 7-40 U/L Alkaline Phosphatase 84 46-116 U/L B-Type Natriuretic Peptide 172.69 0-100 pg/mL Total Protein 6.1 5.7-8.2 g/dL Albumin 4.0 3.2-4.8 g/dL Lipase 74 H 12-53 U/L Imaging: Assessment: Anemia Gastritis/duodenitis History of hepatitis-B Liver cirrhosis Hepatocellular carcinoma History CVA CHF Plan: Discussed with Dr. Martin Monitor labs. Transfuse if hemoglobin less than seven Protonix and Carafate We will continue to monitor the patient [facility] services if any active bleeding Discussed plan with patient and RN Thank you for this consult Date of Service: Aug 11, 2024 Billing Provider: LISA WINN Common Visit Codes: CONSULT ONLY Consultation Codes: [id number] CONSULT <60MIN LISA WINN Aug 11, 2024 13:36
[2024-08-11] MEDS: FERROUS SULFATE 325mg EC TAB PO SCH (16:46)
[2024-08-11] MEDS: INSULIN LANTUS (GLARGINE) 1 /0.01ml (100units/ml) SC SCH (18:21)
[2024-08-11 19:28] LABS: Basophils # (auto) 0 10 ^3/uL (0-0.2); Basophils % (auto) 0.3 % (0.0-2.0); Eosinophils # (auto) 0.1 10 ^3/uL (0-0.8); Eosinophils % (auto) 1.6 % (0.0-7.0); Hematocrit 28.2 % (41.0-53.0); Hemoglobin 9.5 g/dL (13.5-17.5); Lymphocytes # (auto) 1.1 10 ^3/uL (0.4-5.4); Lymphocytes % (auto) 18.2 % (10.0-50.0); Mean Corpuscular Hemoglobin 30.1 pg (28.0-32.0); Mean Corpuscular Hgb Conc. 33.8 g/dL (32.0-36.0); Monocytes # (auto) 0.4 10 ^3/uL (0-1.3); Monocytes % (auto) 6.4 % (0.0-12.0); Neutrophils # (auto) 4.3 10 ^3/uL (1.6-8.6); Neutrophils % (auto) 73.5 % (37.0-80.0); Nucleated Red Blood Cells % 0.3 %; Platelet Count (auto) 154 10^3/uL (140-450); Red Blood Cells 3.17 10^6/uL (4.5-5.90); Red Cell Distribution Width 16.7 % (11.8-14.3); White Blood Cell 5.8 10^3/uL (4.4-10.8)
[2024-08-11 19:47] LABS: Alanine Aminotransferase 32 U/L (7-40); Albumin 4.3 g/dL (3.2-4.8); Alkaline Phosphatase 95 U/L (46-116); Anion Gap 11 (5-15); Calcium 8.9 mg/dL (8.7-10.4); Potassium 3.9 mmol/L (3.5-5.1); Sodium 140 mmol/L (136-145)
[2024-08-11 19:48] LABS: BUN/Creatinine Ratio 21.6 (10.0-20.0); Glucose 97 mg/dL (74-106)
[2024-08-11 19:54] LABS: Aspartate Aminotransferase 126 U/L (13-40); Bilirubin, Total 1.9 mg/dL (0.2-1.0); Blood Urea Nitrogen 54 mg/dL (9-23); Carbon Dioxide 19 mmol/L (20-31); Chloride 110 mmol/L (98-107)
[2024-08-11] MEDS: PANTOPRAZOLE 40 MG/10 ML VIAL INJ IV SCH (21:46)
[2024-08-11] MEDS: ATORVASTATIN 20 MG TAB PO SCH (21:47)
[2024-08-12 01:00] VITALS: BP 127/47; PULSE 54; RESP 15; TEMP 98.1; O2SAT 99
[2024-08-12 05:00] VITALS: BP 122/45; PULSE 53; RESP 15; TEMP 98; O2SAT 99
[2024-08-12] MEDS: LEVOTHYROXINE SODIUM 25 MCG TAB PO SCH (06:15)
[2024-08-12 06:40] LABS: Basophils # (auto) 0 10 ^3/uL (0-0.2); Eosinophils # (auto) 0.1 10 ^3/uL (0-0.8); Hematocrit 24.2 % (41.0-53.0); Monocytes # (auto) 0.5 10 ^3/uL (0-1.3)
[2024-08-12 06:43] LABS: Basophils % (auto) 0.3 % (0.0-2.0); Eosinophils % (auto) 2.7 % (0.0-7.0); Hemoglobin 8.1 g/dL (13.5-17.5); Lymphocytes # (auto) 1.3 10 ^3/uL (0.4-5.4); Lymphocytes % (auto) 24.6 % (10.0-50.0); Mean Corpuscular Hemoglobin 29.7 pg (28.0-32.0); Mean Corpuscular Hgb Conc. 33.7 g/dL (32.0-36.0); Mean Corpuscular Volume 88.2 fL (80.0-100.0); Monocytes % (auto) 9.4 % (0.0-12.0); Neutrophils # (auto) 3.3 10 ^3/uL (1.6-8.6); Nucleated Red Blood Cells % 0.3 %; Platelet Count (auto) 132 10^3/uL (140-450); Red Blood Cells 2.74 10^6/uL (4.5-5.90); Red Cell Distribution Width 16.7 % (11.8-14.3); White Blood Cell 5.2 10^3/uL (4.4-10.8)
[2024-08-12 06:57] LABS: Alanine Aminotransferase 26 U/L (7-40); Albumin 3.6 g/dL (3.2-4.8); Alkaline Phosphatase 84 U/L (46-116); Anion Gap 11 (5-15); BUN/Creatinine Ratio 20.9 (10.0-20.0); Potassium 4.2 mmol/L (3.5-5.1); Sodium 141 mmol/L (136-145); Total Protein 5.8 g/dL (5.7-8.2)
[2024-08-12 06:59] LABS: Aspartate Aminotransferase 108 U/L (13-40); Bilirubin, Total 1.8 mg/dL (0.2-1.0); Blood Urea Nitrogen 53 mg/dL (9-23); Calcium 8.6 mg/dL (8.7-10.4); Carbon Dioxide 20 mmol/L (20-31); Chloride 110 mmol/L (98-107); Glucose 59 mg/dL (74-106)
[2024-08-12 08:00] VITALS: PULSE 51; RESP 16; O2SAT 99
[2024-08-12] MEDS: SUCRALFATE 1 GM/10 ML ORAL SUSP PO ONE (09:16)
--- NOTE | 2024-08-12 11:32 | DVHPN2 ---
Progress Note Date Seen: Aug 12, 2024 Resident Creating Document: MAE BRYANT RESIDENT Medical Necessity Reason Pt with a Central, PICC or Fol: No Subjective Review of Systems Reports feeling better than yesterday Denies any nausea or vomiting Patient had a large bowel movement last night which was noted to be black in color, formed Notes having a good appetite AO x4 Hemoglobin 9.5 -> 8.1 --> 9.3 EGD from May 2024 showed persistent pre-pyloric antral polypoid fold which appeared inflammatory some central erosions and multiple biopsies were obtained. Mild gastropathy involving the proximal stomach with a superficial AVM noted in the cardia. 1-2 cm sliding-type hiatal hernia with minimal grade a erosive esophagitis. Colonoscopy from May 2024 showed to 1-2 mm benign-appearing proximal ascending colon polyps that were seen and removed completely via cold biopsy forceps with minimal oozing at biopsy sites. 2+ internal hemorrhoids with hypertrophied anal papilla. Objective vital signs Vital Sign Date Time Temp Pulse Resp B/P (MAP) Pulse Ox O2 Delivery O2 Flow Rate FiO2 08/12/24 05:00 98.0 53 15 122/45 (70) 99 98.0 08/11/24 20:00 Room Air* 0 21 Total Intake and Output 08/11/24 08/11/24 08/12/24 15:00 23:00 07:00 Intake Total 830 ml 360 ml 2000 ml Output Total 1440 ml 600 ml 1000 ml Balance -610 ml -240 ml 1000 ml medications Current Medications Medications Dose Ordered Sig/Harlan Route Start Time Stop Time Status Last Admin Dose Admin Sodium Chloride 1,000 ml @ 60 mls/hr [id number] IV 08/11/24 08:30 08/11/24 22:01 60 MLS/HR Acetaminophen/ Hydrocodone Bitart 1 tab Q4HP PRN PO 08/11/24 08:30 Ondansetron HCl 4 mg Q4HP PRN IV 08/11/24 08:30 Docusate Sodium 100 mg BIDPRN PRN PO 08/11/24 08:30 Acetaminophen 650 mg Q6HP PRN PO 08/11/24 08:30 Nitroglycerin 0.4 mg Q5MINP PRN SL 08/11/24 08:30 Morphine Sulfate 2 mg Q30M PRN IV 08/11/24 08:30 Diagnostic Test (Pha) 1 strip ACHS 08/11/24 11:30 08/12/24 11:11 1 STRIP Insulin Human Regular HS SC 08/11/24 22:00 08/11/24 22:03 3 UNITS Insulin Human Regular AC SC 08/11/24 11:30 Dextrose 50 ml UD PRN IV 08/11/24 09:30 Levothyroxine Sodium 25 mcg QAM PO 08/12/24 07:00 08/12/24 06:15 25 MCG Tamsulosin HCl 0.4 mg DAILY PO 08/11/24 10:00 08/12/24 09:16 0.4 MG Atorvastatin Calcium 40 mg HS PO 08/11/24 22:00 08/11/24 21:47 40 MG Ferrous Sulfate 325 mg BID PO 08/11/24 10:00 08/12/24 09:16 325 MG Insulin Glargine 30 units HS SC 08/11/24 09:30 08/11/24 22:02 30 UNITS Pantoprazole Sodium 40 mg BID IV 08/11/24 22:00 08/12/24 09:16 40 MG Sucralfate 1 gm BID@0600,2200 PO 08/12/24 22:00 Examination General Appearance: Cooperative. Well developed. NAD Head Exam: Normal inspection. Scleral icterus noted Neck Exam: Normal inspection. Non-tender. Normal alignment Pulmonary/Respiratory: Chest non-tender. Clear bilateral breath sounds, no crackles, no wheezing. Cardiovascular/Chest: Regular rate and rhythm. No murmurs. No JVD. Abdominal Exam: Normal bowel sounds. Soft. normal abdomen, no visible veins, Nontender. No hepatospenomegaly. No masses Lower extremities: Negative lower extremity edema Neuro/Mental Status: A&O x4. Coherent. Skin Exam: Normal inspection. Normal color. Warm. Dry. 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 Transfuse if hemoglobin less than seven Protonix and Carafate We will continue to monitor the patient [facility] GI services if any active bleeding Discussed plan with patient and RN Recommend goals of care discussion with patient Plan discussed with Dr. Martin Plan discussed with: Patient, Other (RN) CC Plasma Assessment Blood Product Administration S: [id number] MAE BRYANT RESIDENT Aug 12, 2024 11:32
--- NOTE | 2024-08-12 12:35 | DVHPN2 ---
Progress Note - Dictate Date Seen: Aug 12, 2024 Medical Necessity Reason Pt with a Central, PICC or Fol: No Subjective Patient comfortable this AM. Denies any hemataemesis, melena, or hematochezia. vital signs Vital Sign Date Time Temp Pulse Resp B/P (MAP) Pulse Ox O2 Delivery O2 Flow Rate FiO2 08/12/24 08:00 51 08/12/24 05:00 98.0 15 122/45 (70) 99 98.0 08/11/24 20:00 Room Air* 0 21 Total Intake and Output 08/11/24 08/11/24 08/12/24 15:00 23:00 07:00 Intake Total 830 ml 360 ml 2000 ml Output Total 1440 ml 600 ml 1000 ml Balance -610 ml -240 ml 1000 ml medications Current Medications Medications Dose Ordered Sig/Harlan Route Start Time Stop Time Status Last Admin Dose Admin Sodium Chloride 1,000 ml @ 60 mls/hr [id number] IV 08/11/24 08:30 08/11/24 22:01 60 MLS/HR Acetaminophen/ Hydrocodone Bitart 1 tab Q4HP PRN PO 08/11/24 08:30 Ondansetron HCl 4 mg Q4HP PRN IV 08/11/24 08:30 Docusate Sodium 100 mg BIDPRN PRN PO 08/11/24 08:30 Acetaminophen 650 mg Q6HP PRN PO 08/11/24 08:30 Nitroglycerin 0.4 mg Q5MINP PRN SL 08/11/24 08:30 Morphine Sulfate 2 mg Q30M PRN IV 08/11/24 08:30 Diagnostic Test (Pha) 1 strip ACHS 08/11/24 11:30 08/12/24 11:11 1 STRIP Insulin Human Regular HS SC 08/11/24 22:00 08/11/24 22:03 3 UNITS Insulin Human Regular AC SC 08/11/24 11:30 Dextrose 50 ml UD PRN IV 08/11/24 09:30 Levothyroxine Sodium 25 mcg QAM PO 08/12/24 07:00 08/12/24 06:15 25 MCG Tamsulosin HCl 0.4 mg DAILY PO 08/11/24 10:00 08/12/24 09:16 0.4 MG Atorvastatin Calcium 40 mg HS PO 08/11/24 22:00 08/11/24 21:47 40 MG Ferrous Sulfate 325 mg BID PO 08/11/24 10:00 08/12/24 09:16 325 MG Insulin Glargine 30 units HS SC 08/11/24 09:30 08/11/24 22:02 30 UNITS Pantoprazole Sodium 40 mg BID IV 08/11/24 22:00 08/12/24 09:16 40 MG Sucralfate 1 gm BID@0600,2200 PO 08/12/24 22:00 objective General appearance: No acute distress. Jaundiced Respiratory: Lungs clear to auscultation. No wheezing, crackles Cardiovascular: Regular rate and rhythm, no murmurs. No edema Abdomen: Soft, nondistended, nontender, bowel sounds present MSK: Normal range of motion. Neuro: Alert, no neurological deficits Psych: Appropriate mood and affect. laboratory and microbiology Laboratory Tests 08/12/24 05:24 Test 08/12/24 05:24 Range/Units Serum Glucose 59 L 74-106 mg/dL Assessment/Plan 1. Anemia 2/2 Liver Cirrhosis 2. History of Hepatitis B 3. JOHN on CKD 4. Hypothyroidism -GI consulted for complaints of melena now resolved. Possible EGD pending reevaluation. -Protonix 40 mg IV twice daily -Patient status post 3 units PRBC with hemoglobin 8.1. No recurrence of GI bleed since hospitalization -Nephrology consulted for JOHN on CKD. Outside review of renal function shows creatinine approximately 2.3-2.5. -Ultrasound renal pending -PT eval completed, patient ambulates more than 50 feet. -Tablet cardiac rehab nurse used for discussion with patient. All questions answered. -Full code Plan discussed with: Patient CC Plasma Assessment Blood Product Administration S: [id number] WINSOME MADISON DO Aug 12, 2024 12:35
[2024-08-12 13:16] VITALS: BP 140/50; PULSE 56; RESP 20; TEMP 97.7; O2SAT 100
--- NOTE | 2024-08-12 13:20 | DVH ---
EXAM: US KIDNEY INDICATION: JOHN on CKD TECHNIQUE: Multiple real-time sonographic images of the kidneys and bladder were obtained. COMPARISON: US KIDNEY on DOS: 05/20/24 Findings: Right kidney measures 9.5 cm with normal contours, echotexture, and cortical thickness. No evidence o f hydronephrosis, calculi, cystic or solid lesions. Left kidney measures 8.4 cm with normal contours, echotexture, and cortical thickness. No evidence of hydronephrosis, calculi, cystic or solid lesions. Urinary bladder is unremarkable without evidence of abnormal wall thickening, mass, or calculi. Prevo id volume 209 mL. Postvoid volume was not obtained. Impression: 1. Unremarkable sonographic study of the urinary bladder and right kidney. 2. Mildly atrophic left kidney.
--- NOTE | 2024-08-12 13:28 | DVHINCON2 ---
Date of service: Aug 12, [address] Mccullough Reason for Consultation Acute kidney injury History of Present Illness Patient is 74-year-old male with past medical history of CHF, CVA, DM, Gallstones, HTN, Liver Disease, and hypothyroidism is admitted for generalized weakness and frequent fall patient found to have hemoglobin of 3 on admission patient received packed red blood cell transfusion and nephrology is consulted for elevated BUN and creatinine Past Medical History PAST MEDICAL HISTORY: CHF, CVA, DM, Gallstones, HTN, Liver, Thyroid Past Surgical History Surgical History: Denies all surgeries Allergies: Coded Allergies: NO KNOWN ALLERGIES (Unverified , 06/08/23) Home Meds Active Scripts Sucralfate (CARAFATE SUSP) 1 Gm/10 Ml Ss, 10 ML PO BID, #600 ML 1 Refill Prov:JOSE OCASIO MD 06/03/24 Pantoprazole Sodium Sesquihydr (Protonix) 40 Mg Tab, 40 MG PO BID for 30 Days, #60 TAB 1 Refill Prov:JOSE OCASIO MD 06/03/24 Ferrous Sulfate (Iron) 325 Mg Tab, 325 MG PO BID for 30 Days, #60 TAB Prov:CLAUDIO MACARIO NP 05/22/24 Tamsulosin Hcl (Flomax) 0.4 Mg Cap, 1 CAP PO DAILY for 30 Days, #30 CAP 11 Refills Prov:CLAUDIO MACARIO NP 05/22/24 Reported Medications Losartan Potassium (Losartan Potassium) 25 Mg Tab, 1 TAB PO DAILY 08/11/24 Insulin Lispro (Admelog) 100 Unit/Ml Inj, 10 UNITS SC UD 02/27/24 Insulin Glargine (Basaglar Kwikpen) 100 Unit/Ml Inj, 30 UNITS SC BEFORE DINNER 02/27/24 Levothyroxine Sodium (Levothyroxine Sodium) 25 Mcg Tab, 25 MCG PO QAM ON EMPTY STOMACH 02/27/24 Tenofovir Alafenamide Fumarate (Vemlidy) 25 Mg Tab, 25 MG PO DAILY 02/27/24 Atorvastatin Calcium (ATORVASTATIN CALCIUM) 40 Mg Tab, 1 TAB PO DAILY, #30 TAB 5 Refills 06/10/23 Semaglutide (Ozempic) 2 Mg/3 Ml Inj, 2 MG SC, INJ 06/10/23 Discontinued Scripts Amoxicillin Trihydrate (Amoxicillin) 500 Mg Tab, 2 TAB PO BID for 14 Days, #56 TAB 0 Refills Prov:JOSE OCASIO MD 06/03/24 Clarithromycin (Clarithromycin) 500 Mg Tab, 1 TAB PO BID, #28 TAB 0 Refills Prov:JOSE OCASIO MD 06/03/24 Current Medications Current Medications Medications (Trade) Dose Ordered Sig/Harlan Route PRN Reason Start Time Stop Time Status Last Admin Insulin Human Regular (InsuLIN R) HS SC 08/11/24 22:00 08/11/24 22:03 Levothyroxine Sodium (Synthroid Tablet) 25 mcg QAM PO 08/12/24 07:00 08/12/24 06:15 Atorvastatin Calcium (Lipitor) 40 mg HS PO 08/11/24 22:00 08/11/24 21:47 Pantoprazole Sodium (Protonix) 40 mg BID IV 08/11/24 22:00 08/12/24 09:16 Sucralfate (Carafate Susp) 1 gm BID@0600,2200 PO 08/12/24 22:00 Family History: Patient reports no known family medical history. Review of Systems All 12 item review of systems reviewed with the patient nonsignificant except what is mentioned in the history of present illness H&P Exam Vital Signs/I&O Vital Sign Date Time Temp Pulse Resp B/P (MAP) Pulse Ox O2 Delivery O2 Flow Rate FiO2 08/12/24 13:16 97.7 56 20 140/50 (80) 100 97.7 08/12/24 08:00 Room Air* 0 21 Intake and Output 08/11/24 08/12/24 19:00 07:00 Intake Total 1130 ml 2060 ml Output Total 2040 ml 1000 ml Balance -910 ml 1060 ml Intake Oral 0 ml 1580 ml IV Total 230 ml 480 ml Blood Product 900 ml Output Urine Total 2040 ml 1000 ml # Voids 2 2 # Bowel Movements 1 Physical Exam Patient is awake appeared in no acute distress Lungs clear to auscultation bilaterally Cardiac exam regular rate and rhythm GI soft bowel sounds are present was normal Extremities no clubbing cyanosis or edema Neuro patient awake and alert Labs/Diagnostic Data Labs/Diagnostic Data Laboratory Tests Test 08/12/24 14:35 08/12/24 13:33 08/12/24 11:02 3/11/25 06:17 Range/Units White Blood Count 5.8 4.4-10.8 10^3/uL Red Blood Count 3.27 L 4.5-5.90 10^6/uL Hemoglobin 9.3 L 13.5-17.5 g/dL Hematocrit 29.1 #L 41.0-53.0 % Mean Corpuscular Volume 89.0 80.0-100.0 fL Mean Corpuscular Hemoglobin 28.5 28.0-32.0 pg Mean Corpuscular Hemoglobin Concent 32.0 32.0-36.0 g/dL Red Cell Distribution Width 17.2 H 11.8-14.3 % Platelet Count 149 140-450 10^3/uL Mean Platelet Volume 8.4 6.9-10.8 fL Neutrophils (%) (Auto) 72.6 37.0-80.0 % Lymphocytes (%) (Auto) 17.1 10.0-50.0 % Monocytes (%) (Auto) 7.7 0.0-12.0 % Eosinophils (%) (Auto) 2.2 0.0-7.0 % Basophils (%) (Auto) 0.4 0.0-2.0 % Neutrophils # (Auto) 4.2 1.6-8.6 10 ^3/uL Lymphocytes # (Auto) 1.0 0.4-5.4 10 ^3/uL Monocytes # (Auto) 0.4 0-1.3 10 ^3/uL Eosinophils # (Auto) 0.1 0-0.8 10 ^3/uL Basophils # (Auto) 0 0-0.2 10 ^3/uL Nucleated Red Blood Cells 0.3 % Phosphorus Level 4.3 2.4-5.1 mg/dL Magnesium Level 2.4 1.6-2.6 mg/dL Vitamin D 25-Hydroxy 28.7 L 30.0-100 ng/mL Parathyroid Hormone (Intact) 123.0 H 18.4-80.1 pg/mL POC Glucose 130 H 72 70-106 mg/dl Test 08/12/24 05:24 08/11/24 21:45 08/11/24 18:50 08/11/24 16:31 Range/Units White Blood Count 5.2 5.8 # 4.4-10.8 10^3/uL Red Blood Count 2.74 L 3.17 L 4.5-5.90 10^6/uL Hemoglobin 8.1 L 9.5 #L 13.5-17.5 g/dL Hematocrit 24.2 #L 28.2 #L 41.0-53.0 % Mean Corpuscular Volume 88.2 89.0 80.0-100.0 fL Mean Corpuscular Hemoglobin 29.7 30.1 28.0-32.0 pg Mean Corpuscular Hemoglobin Concent 33.7 33.8 32.0-36.0 g/dL Red Cell Distribution Width 16.7 H 16.7 H 11.8-14.3 % Platelet Count 132 L 154 140-450 10^3/uL Mean Platelet Volume 8.5 8.6 6.9-10.8 fL Neutrophils (%) (Auto) 63.0 73.5 37.0-80.0 % Lymphocytes (%) (Auto) 24.6 18.2 10.0-50.0 % Monocytes (%) (Auto) 9.4 6.4 0.0-12.0 % Eosinophils (%) (Auto) 2.7 1.6 0.0-7.0 % Basophils (%) (Auto) 0.3 0.3 0.0-2.0 % Neutrophils # (Auto) 3.3 4.3 1.6-8.6 10 ^3/uL Lymphocytes # (Auto) 1.3 1.1 0.4-5.4 10 ^3/uL Monocytes # (Auto) 0.5 0.4 0-1.3 10 ^3/uL Eosinophils # (Auto) 0.1 0.1 0-0.8 10 ^3/uL Basophils # (Auto) 0 0 0-0.2 10 ^3/uL Nucleated Red Blood Cells 0.3 0.3 % Sodium Level 141 140 136-145 mmol/L Potassium Level 4.2 3.9 3.5-5.1 mmol/L Chloride Level 110 H 110 H 98-107 mmol/L Carbon Dioxide Level 20 19 L 20-31 mmol/L Anion Gap 11 11 5-15 Blood Urea Nitrogen 53 H 54 H 9-23 mg/dL Creatinine 2.54 H 2.50 H 0.700-1.30 mg/dL Glomerular Filtration Rate Calc 26 26 >90 mL/min BUN/Creatinine Ratio 20.9 H 21.6 H 10.0-20.0 Serum Glucose 59 L 97 74-106 mg/dL Hemoglobin A1c < 3.8 <5.7 % A1C Calcium Level 8.6 L 8.9 8.7-10.4 mg/dL Phosphorus Level 4.8 2.4-5.1 mg/dL Total Bilirubin 1.8 H 1.9 H 0.2-1.0 mg/dL Aspartate Amino Transferase (AST) 108 H 126 H 13-40 U/L Alanine Aminotransferase (ALT) 26 32 7-40 U/L Alkaline Phosphatase 84 95 46-116 U/L Total Protein 5.8 7.0 5.7-8.2 g/dL Albumin 3.6 4.3 3.2-4.8 g/dL Parathyroid Hormone (Intact) 138.4 H 18.4-80.1 pg/mL POC Glucose 196 H 93 70-106 mg/dl Test 08/11/24 11:14 08/11/24 10:00 08/11/24 04:57 08/11/24 04:56 Range/Units POC Glucose 81 70-106 mg/dl Lactic Acid Level 1.0 0.4-2.0 mmol/L White Blood Count 4.2 #L 4.4-10.8 10^3/uL Red Blood Count 1.80 L 4.5-5.90 10^6/uL Hemoglobin 5.5 #*L 13.5-17.5 g/dL Hematocrit 16.6 #L 41.0-53.0 % Mean Corpuscular Volume 92.2 # 80.0-100.0 fL Mean Corpuscular Hemoglobin 30.5 28.0-32.0 pg Mean Corpuscular Hemoglobin Concent 33.1 32.0-36.0 g/dL Red Cell Distribution Width 16.9 H 11.8-14.3 % Platelet Count 130 L 140-450 10^3/uL Mean Platelet Volume 8.4 6.9-10.8 fL Neutrophils (%) (Auto) 59.2 37.0-80.0 % Lymphocytes (%) (Auto) 29.6 10.0-50.0 % Monocytes (%) (Auto) 8.9 0.0-12.0 % Eosinophils (%) (Auto) 1.9 0.0-7.0 % Basophils (%) (Auto) 0.4 0.0-2.0 % Neutrophils # (Auto) 2.5 1.6-8.6 10 ^3/uL Lymphocytes # (Auto) 1.2 0.4-5.4 10 ^3/uL Monocytes # (Auto) 0.4 0-1.3 10 ^3/uL Eosinophils # (Auto) 0.1 0-0.8 10 ^3/uL Basophils # (Auto) 0 0-0.2 10 ^3/uL Nucleated Red Blood Cells 0.2 % Sodium Level 141 136-145 mmol/L Potassium Level 4.6 3.5-5.1 mmol/L Chloride Level 114 H 98-107 mmol/L Carbon Dioxide Level 17 L 20-31 mmol/L Anion Gap 10 5-15 Blood Urea Nitrogen 61 #H 9-23 mg/dL Creatinine 2.63 H 0.700-1.30 mg/dL Glomerular Filtration Rate Calc 25 >90 mL/min BUN/Creatinine Ratio 23.2 H 10.0-20.0 Serum Glucose 91 # 74-106 mg/dL Calcium Level 8.4 L 8.7-10.4 mg/dL Test 08/10/24 22:12 08/10/24 21:44 08/10/24 21:20 Range/Units Troponin I High Sensitivity 15 15 </=54 ng/L Urine Color Light-yellow Yellow Urine Clarity Clear Clear Urine pH 5.0 5.0-9.0 Urine Specific [place] 1.012 1.001-1.035 Urine Protein Trace H Negative Urine Ketones Negative Negative Urine Blood Negative Negative /uL Urine Nitrite Negative Negative Urine Bilirubin Negative Negative Urine Urobilinogen Normal Negative mg/dL Urine Leukocyte Esterase Negative Negative /uL Urine RBC <1 0 - 3 /hpf Urine Microscopic WBC 1 0-3 /HPF Urine Squamous Epithelial Cells Few <5 /hpf Urine Bacteria Few H None Seen /hpf Urine Glucose 3+ H Normal mg/dL White Blood Count 5.7 4.4-10.8 10^3/uL Red Blood Count 1.02 L 4.5-5.90 10^6/uL Hemoglobin 3.0 *L 13.5-17.5 g/dL Hematocrit 10.5 L 41.0-53.0 % Mean Corpuscular Volume 102.1 H 80.0-100.0 fL Mean Corpuscular Hemoglobin 29.7 28.0-32.0 pg Mean Corpuscular Hemoglobin Concent 29.1 L 32.0-36.0 g/dL Red Cell Distribution Width 18.3 H 11.8-14.3 % Platelet Count 191 140-450 10^3/uL Mean Platelet Volume 8.7 6.9-10.8 fL Neutrophils (%) (Auto) 74.0 37.0-80.0 % Lymphocytes (%) (Auto) 17.6 10.0-50.0 % Monocytes (%) (Auto) 6.7 0.0-12.0 % Eosinophils (%) (Auto) 1.1 0.0-7.0 % Basophils (%) (Auto) 0.6 0.0-2.0 % Neutrophils # (Auto) 4.2 1.6-8.6 10 ^3/uL Lymphocytes # (Auto) 1.0 0.4-5.4 10 ^3/uL Monocytes # (Auto) 0.4 0-1.3 10 ^3/uL Eosinophils # (Auto) 0.1 0-0.8 10 ^3/uL Basophils # (Auto) 0 0-0.2 10 ^3/uL Nucleated Red Blood Cells 0.3 % Prothrombin Time 12.6 H 9.3-11.8 sec Prothrombin Time INR 1.21 H 0.9-1.15 Activated Partial Thromboplast Time 25.1 24.5-34.5 SEC Sodium Level 138 136-145 mmol/L Potassium Level 5.5 H 3.5-5.1 mmol/L Chloride Level 111 H 98-107 mmol/L Carbon Dioxide Level 15 L 20-31 mmol/L Anion Gap 12 5-15 Blood Urea Nitrogen 72 H 9-23 mg/dL Creatinine 2.93 H 0.700-1.30 mg/dL Glomerular Filtration Rate Calc 22 >90 mL/min BUN/Creatinine Ratio 24.6 H 10.0-20.0 Serum Glucose 287 H 74-106 mg/dL POC Glucose 290 H 70-106 mg/dl Calcium Level 8.4 L 8.7-10.4 mg/dL Magnesium Level 3.0 H 1.6-2.6 mg/dL Total Bilirubin 0.5 0.2-1.0 mg/dL Aspartate Amino Transferase (AST) 97 H 13-40 U/L Alanine Aminotransferase (ALT) 26 7-40 U/L Alkaline Phosphatase 84 46-116 U/L B-Type Natriuretic Peptide 172.69 0-100 pg/mL Total Protein 6.1 5.7-8.2 g/dL Albumin 4.0 3.2-4.8 g/dL Lipase 74 H 12-53 U/L Assessment Acute kidney injury superimposed Chronic Kidney Disease secondary hemodynamic mediated Severe anemia status post packed red blood cell transfusion Rule out GI bleeding Transaminitis Recommendations Closely monitor fluid and electrolytes Avoid nephrotoxic medication Strict I&Os Check urine electrolytes and urine protein excretion Check kidney ultrasound GI consult We will continue to follow Patient seen and examined by myself. I discussed my plan of care with the patient and primary nurse at the bedside I would like to thank Dr. Mccullough for the consult, will follow up Plan discussed with: Patient LINDA BACON MD Aug 12, 2024 13:28
[2024-08-12 13:50] LABS: Basophils # (auto) 0 10 ^3/uL (0-0.2); Basophils % (auto) 0.4 % (0.0-2.0); Eosinophils # (auto) 0.1 10 ^3/uL (0-0.8); Eosinophils % (auto) 2.2 % (0.0-7.0); Hematocrit 29.1 % (41.0-53.0); Hemoglobin 9.3 g/dL (13.5-17.5); Lymphocytes % (auto) 17.1 % (10.0-50.0); Mean Corpuscular Hemoglobin 28.5 pg (28.0-32.0); Monocytes # (auto) 0.4 10 ^3/uL (0-1.3); Monocytes % (auto) 7.7 % (0.0-12.0); Neutrophils # (auto) 4.2 10 ^3/uL (1.6-8.6); Neutrophils % (auto) 72.6 % (37.0-80.0); Nucleated Red Blood Cells % 0.3 %; Platelet Count (auto) 149 10^3/uL (140-450); Red Blood Cells 3.27 10^6/uL (4.5-5.90); Red Cell Distribution Width 17.2 % (11.8-14.3); White Blood Cell 5.8 10^3/uL (4.4-10.8)
[2024-08-12 14:08] LABS: Magnesium 2.4 mg/dL (1.6-2.6)
[2024-08-12 14:09] LABS: Phosphorus 4.3 mg/dL (2.4-5.1)
--- NOTE | 2024-08-12 15:49 | DVHDS2 ---
Discharge Summary Date of Admission Aug 11, 2024 at 08:27 Date of Discharge: Aug 12, 2024 Labs/Diagnostic Data: Laboratory Results Test 08/12/24 14:35 08/12/24 13:33 08/12/24 11:02 08/12/24 05:24 White Blood Count 5.8 10^3/uL (4.4-10.8) Red Blood Count 3.27 10^6/uL (4.5-5.90) Hemoglobin 9.3 g/dL (13.5-17.5) Hematocrit 29.1 % (41.0-53.0) Mean Corpuscular Volume 89.0 fL (80.0-100.0) Mean Corpuscular Hemoglobin 28.5 pg (28.0-32.0) Mean Corpuscular Hemoglobin Concent 32.0 g/dL (32.0-36.0) Red Cell Distribution Width 17.2 % (11.8-14.3) Platelet Count 149 10^3/uL (140-450) Mean Platelet Volume 8.4 fL (6.9-10.8) Neutrophils (%) (Auto) 72.6 % (37.0-80.0) Lymphocytes (%) (Auto) 17.1 % (10.0-50.0) Monocytes (%) (Auto) 7.7 % (0.0-12.0) Eosinophils (%) (Auto) 2.2 % (0.0-7.0) Basophils (%) (Auto) 0.4 % (0.0-2.0) Neutrophils # (Auto) 4.2 10 ^3/uL (1.6-8.6) Lymphocytes # (Auto) 1.0 10 ^3/uL (0.4-5.4) Monocytes # (Auto) 0.4 10 ^3/uL (0-1.3) Eosinophils # (Auto) 0.1 10 ^3/uL (0-0.8) Basophils # (Auto) 0 10 ^3/uL (0-0.2) Nucleated Red Blood Cells 0.3 % Phosphorus Level 4.3 mg/dL (2.4-5.1) Magnesium Level 2.4 mg/dL (1.6-2.6) Vitamin D 25-Hydroxy 28.7 ng/mL (30.0-100) Parathyroid Hormone (Intact) 123.0 pg/mL (18.4-80.1) POC Glucose 130 mg/dl (70-106) Sodium Level 141 mmol/L (136-145) Potassium Level 4.2 mmol/L (3.5-5.1) Chloride Level 110 mmol/L (98-107) Carbon Dioxide Level 20 mmol/L (20-31) Anion Gap 11 (5-15) Blood Urea Nitrogen 53 mg/dL (9-23) Creatinine 2.54 mg/dL (0.700-1.30) Glomerular Filtration Rate Calc 26 mL/min (>90) BUN/Creatinine Ratio 20.9 (10.0-20.0) Serum Glucose 59 mg/dL (74-106) Hemoglobin A1c < 3.8 % A1C (<5.7) Calcium Level 8.6 mg/dL (8.7-10.4) Total Bilirubin 1.8 mg/dL (0.2-1.0) Aspartate Amino Transferase (AST) 108 U/L (13-40) Alanine Aminotransferase (ALT) 26 U/L (7-40) Alkaline Phosphatase 84 U/L (46-116) Total Protein 5.8 g/dL (5.7-8.2) Albumin 3.6 g/dL (3.2-4.8) Test 08/11/24 10:00 08/10/24 22:12 08/10/24 21:44 08/10/24 21:20 Lactic Acid Level 1.0 mmol/L (0.4-2.0) Troponin I High Sensitivity 15 ng/L (</=54) Urine Color Light-yellow (Yellow) Urine Clarity Clear (Clear) Urine pH 5.0 (5.0-9.0) Urine Specific [place] 1.012 (1.001-1.035) Urine Protein Trace (Negative) Urine Ketones Negative (Negative) Urine Blood Negative /uL (Negative) Urine Nitrite Negative (Negative) Urine Bilirubin Negative (Negative) Urine Urobilinogen Normal mg/dL (Negative) Urine Leukocyte Esterase Negative /uL (Negative) Urine RBC <1 /hpf (0 - 3) Urine Microscopic WBC 1 /HPF (0-3) Urine Squamous Epithelial Cells Few /hpf (<5) Urine Bacteria Few /hpf (None Seen) Urine Glucose 3+ mg/dL (Normal) Prothrombin Time 12.6 sec (9.3-11.8) Prothrombin Time INR 1.21 (0.9-1.15) Activated Partial Thromboplast Time 25.1 SEC (24.5-34.5) B-Type Natriuretic Peptide 172.69 pg/mL (0-100) Lipase 74 U/L (12-53) Other Laboratory Tests 08/12/24 13:33 08/12/24 05:24 Brief Hx & Hospital Course: Patient is a 74-year-old male with past medical history of liver cirrhosis secondary to hepatitis B, CKD who presented with generalized weakness and complaints of dark tarry stools. Patient arrived with hemoglobin of 3. Patient was transfused a total of 4 units PRBC. Patient was evaluated by GI. Patient was started on sucralfate, Protonix. Patient had an EGD done recently in May. He notes that he follows with [facility] gastroenterology. Patient was monitored overnight after his transfusion and hemoglobin was noted to stabilize at around 9. Patient did not have recurrence of any GI bleeding or dark tarry stools. GI cleared him for discharge and is recommended to continue his Protonix and follow-up with [facility] gastroenterology. Patient was also seen by nephrology for his JOHN on CKD. BUN/creatinine on arrival was noted to be 70/2.93 which improved to 53/2.54 prior to discharge. This appears close to patient's baseline. Renal ultrasound was done which was unremarkable with the exception of a mildly atrophic left kidney. Patient was hemodynamically stable prior to discharge. [facility] to arrange follow up appointments with GI and nephrology. Condition at Discharge: Fair Final Diagnosis/Problems List Anemia due to Liver Cirrhosis Secondary Diagnosis: Hepatitis B JOHN on CKD Liver Cirrhosis 10.5 Left Hepatic Lobe Mass likely HCC (on CT Abdomen 05/2024) Discharge Disposition: Home Discharge Statement: "Patient was advised to return to the ER or call 911 if any headaches, dizziness, shortness of breath, chest pain, abdominal pain, bleeding, fevers, or worsening of medical condition. Patient was counseled about treatment plan, medications, possible side effects, patientverbalized understanding. All questions were answered to the best of my ability. This discharge took greater then 30 minutes in planning, reviewing documentation, counseling the patient, and discussing with other team members." ASSESSMENT ASSESSMENT Assessment WINSOME MADISON DO Aug 12, 2024 15:49
[2024-08-12] MEDS ORDERED: DOCU-265 PO (15:52)
[2024-08-12] MEDS ORDERED: PANT40TA2 PO (15:53)
[2024-08-12] MEDS ORDERED: SUCRALFATE 1 GM/10 ML ORAL SUSP PO SCH (22:00)
== END 2024-08-12 18:15 | disposition home or self-care (01) | DRG 432 ==
LOC: ER 20:31 → EDBD 20:31 → OVERFLOW 08-11 08:27 → TELE-CENTR 08-11 08:29
PROVIDERS: ADMIT Nurse Practitioner Family; ATTEND Student in an Organized Health Care Education/Training Program
PROC: 30233N1 Transfusion of Nonautologous Red Blood Cells into Peripheral Vein, Percutaneous Approach (ICD-10-PCS; principal; 2024-08-11)
DX: K74.60 Unspecified cirrhosis of liver (principal); I50.33 Acute on chronic diastolic (congestive) heart failure; N17.0 Acute kidney failure with tubular necrosis; B19.10 Unspecified viral hepatitis B without hepatic coma; N17.9 Acute kidney failure, unspecified; C22.0 Liver cell carcinoma; I69.354 Hemiplegia and hemiparesis following cerebral infarction affecting left non-dominant side; I13.0 Hypertensive heart and chronic kidney disease with heart failure and stage 1 through stage 4 chronic kidney disease, or unspecified chronic kidney disease; E87.5 Hyperkalemia; E83.51 Hypocalcemia; K29.80 Duodenitis without bleeding; K29.70 Gastritis, unspecified, without bleeding; K80.20 Calculus of gallbladder without cholecystitis without obstruction; E11.65 Type 2 diabetes mellitus with hyperglycemia; E11.22 Type 2 diabetes mellitus with diabetic chronic kidney disease; D63.8 Anemia in other chronic diseases classified elsewhere; Z60.3 Acculturation difficulty; E03.9 Hypothyroidism, unspecified; N26.1 Atrophy of kidney (terminal); E78.5 Hyperlipidemia, unspecified; N18.9 Chronic kidney disease, unspecified; Z85.05 Personal history of malignant neoplasm of liver; Z79.4 Long term (current) use of insulin; Z79.899 Other long term (current) drug therapy; Z79.2 Long term (current) use of antibiotics; Z79.1 Long term (current) use of non-steroidal anti-inflammatories (NSAID)
CPT/HCPCS: 36415; 71045; 76775; 80048; 80053; 81001; 82105; 82270; 82306; 82962; 83036; 83605; 83690; 83735; 83880; 83970; 84100; 84484; 85025; 85610; 85730; 86850; 86900; 86901; 86920; 93005; 97163; 99291; G0378; J1815; J2470